=== PATIENT | male | born 1935 | race Caucasian/White ===

== ENCOUNTER 2016-03-01 12:05 | Inpatient (IN) | payer OTHER ==
[~2016-03-01] VITALS: Ht 172.7 cm; Wt 73.2 kg
[~2016-03-01 12:05] MED LIST: ATOR-22 PO; DEXT30TA7 PO; DONE10TA12 PO; ESCI10TA17 PO; GLUCPOW41 PO; MULT-506 PO; NMN5 PO
[2016-03-01 12:10] VITALS: BP 152/76; PULSE 81; TEMP 36.6; Ht 172.7 cm; Wt 73.2 kg
[2016-03-01] MEDS ORDERED: ACETAMINOPHEN 500 MG TAB PO PRN (12:15)
[2016-03-01] MEDS ORDERED: DO NOT ADMINISTER PNEUMOCOCCAL VACCINE PRN ×2 (12:30)
[2016-03-01 12:48] LABS: BASO % 0.2 %; BASO ABS # 0.02 K/uL (0-0.2); EOS % 0.1 %; HEMATOCRIT 38.9 % (42-52); IG% 0.2 %; LYMPH % 7.7 %; LYMPH ABS # 0.76 K/uL (1.2-3.4); MEAN CELL VOLUME 90.7 fL (80-100); MEAN CORPUSCULAR HEMOGLOBIN 30.3 pg (25-34); MEAN PLATELET VOLUME 11.8 fL (7.4-10.4); NEUT % 81.8 %; PLATELET COUNT 126 K/uL (130-400); RED BLOOD COUNT 4.29 M/uL (4.7-6.1); WHITE BLOOD COUNT 9.84 K/uL (4.8-10.8)
[2016-03-01 12:49] LABS: COMPLETE YES; MEAN CORPUSCULAR HGB CONC 33.4 g/dl (32-36)
[2016-03-01] MEDS: SODIUM CHLORIDE 0.9% 1000ML 1,000 ML IV SCH ×2 (13:15→20:43)
[2016-03-01 13:17] LABS: BUN/CREATININE RATIO 14.7 (10-20); CREATININE 0.98 mg/dl (0.60-1.40); POTASSIUM 4.2 mmol/L (3.5-5.1)
[2016-03-01] MEDS ORDERED: OSELTAMIVIR PHOSPHATE 75 MG CAP PO STA (14:41)
[2016-03-01] MEDS: ALBUT/IPRATROP 3MG/0.5MG NEB 3 ML VIAL INH SCH ×2 (15:00→19:25)
[2016-03-01 15:40] VITALS: BP 121/72; PULSE 82; TEMP 37.2; O2SAT 96
--- NOTE | 2016-03-01 16:00 | DIAGNOSTIC IMAGING REPORT ---
CHEST 2 VIEWS ROUTINE HISTORY: BRONCHITIS COMPARISON: Chest 02/28/2016. FINDINGS: No pneumothorax. Trace bilateral pleural effusions. Right greater than left interstitial and vascular thickening. This likely represents developing asymmetric pulmonary edema. The heart is top normal in size. Calcified granuloma within the left lower lobe. No new focal lung consolidations. IMPRESSION: Mild asymmetric pulmonary edema and trace bilateral pleural effusions. Electronically signed by: Renan Montes De Oca M.D. 03/01/2016 3:58 PM
--- NOTE | 2016-03-01 16:02 | DIAGNOSTIC IMAGING REPORT ---
CT HEAD WITHOUT CONTRAST (CT) CLINICAL HISTORY: CLOSED HEAD TRAUMA HEAD PAIN COMPARISON STUDY: No previous studies for comparison. TECHNIQUE: Axial CT of the brain is performed from the vertex to the skull base. IV contrast was not administered for this examination. CT DOSE: 823.94 mGycm FINDINGS: No intra or extra-axial mass lesions are visualized. There is no CT evidence of acute cortical infarction. There is no evidence of midline shift. There is no acute hemorrhage. No calvarial fractures are visualized. There are minor white matter hypodensities likely on a small vessel basis. There is no evidence of pathologic ventricular dilatation. There is a sphenoid sinus air-fluid level. There is mucosal thickening within the ethmoid sinuses. IMPRESSION: 1. Fluid/mucosal thickening within the ethmoid and sphenoid sinuses 2. No acute intracranial findings Electronically signed by: Jules Cisneros M.D. 03/01/2016 4:00 PM
[2016-03-01 19:25] VITALS: PULSE 84; O2SAT 96
[2016-03-01] MEDS: OSELTAMIVIR PHOSPHATE 75 MG CAP PO SCH (20:44)
[2016-03-01] MEDS: MEMANTINE 5 MG TAB PO SCH (20:45)
[2016-03-01] MEDS: ATORVASTATIN 20 MG TAB PO SCH (20:45)
[2016-03-01] MEDS: HEPARIN SOD 5000 UNIT/0.5 ML CARP SQ SCH (20:47)
[2016-03-01 23:32] VITALS: BP 131/75; PULSE 69; TEMP 37; O2SAT 95
[2016-03-02] VITALS (8 sets, daily range): BP systolic 139; BP diastolic 70–76; PULSE 72–80; TEMP 36.4–36.8; O2SAT 94–97
[2016-03-02 00:36] LABS: URINE APPEARANCE CLEAR (CLEAR); URINE BILIRUBIN NEG (NEG); URINE COLOR YELLOW; URINE NITRITE NEG (NEG); URINE PH 5.5 (4.5-7.5); URINE SPECIFIC GRAVITY 1.015 (1.000-1.030); UROBILINOGEN NEG (NEG)
[2016-03-02 00:40] LABS: MANUAL MICROSCOPIC REQUIRED? NO; REVIEW REQ? NO
[2016-03-02] MEDS: ALBUT/IPRATROP 3MG/0.5MG NEB 3 ML VIAL INH SCH ×4 (01:24→19:24)
--- NOTE | 2016-03-02 01:48 | HISTORY & PHYSICAL EXAMINATION ---
DATE OF ADMISSION: 03/01/2016 An 80-year-old male; admitted directly from the office with persistent symptomatology of fever, chills, severe cough, acute illness and dehydration. HISTORY OF PRESENT ILLNESS: The patient is treated for dementia and hypercholesterolemia. He also has osteoarthritis, history of duodenal ulcer, has hiatal hernia and reflux. He also has a history of nephrolithiasis. The patient was seen in the Emergency Room on 02/28/2016. He presented to the Emergency Room because of fever. His stated that he woke up the day before with a nonproductive cough. Then he developed fever, which has persisted. She has been checking it at home. He has been taking Mucinex for cough, but that did not improve his symptomatology. He woke up with severe fever and chills. He was coughing. He had no nausea, no vomiting. He was evaluated in the Emergency Room. His chest x-ray was unremarkable. Influenza screen was negative. He was discharged home on an inhaler. He was also taking Tylenol. He was brought to the office today because his symptoms have persisted. He has poor appetite, not getting enough to eat or drink. He has recurrent fever. His has been giving him Tylenol every 4 hours. He denied any headache. He was feeling lightheaded. He had no chest pain. He has severe cough. No significant sputum. No hemoptysis. No abdominal pain, no nausea, no vomiting. No diarrhea. His noted that he is very weak and off balance. During the night he fell down, he sustained a bruise to his left forehead area and nose. I saw the patient in the Emergency Room; he was feeling weak. He was having problem with his balance and equilibrium. He seemed dehydrated. Arrangements were made for admission. PAST MEDICAL HISTORY: 1. Dementia, has been progressive since 2011. He is currently on Aricept and Namenda. 2. Gastroesophageal reflux and hiatal hernia. 3. History of duodenal ulcer. 4. Status post repair of right inguinal hernia on 2 separate occasions; the last one was in 2007. 5. History of nephrolithiasis without any recent episode. 6. History of TUNA procedure on 08/28/2007. 7. He has had a history of prostate biopsy in 2007 which was benign. 8. His last colonoscopy was in 2009. He had an EGD done in 2011. 9. He has had Pneumovax in the past. He did receive his influenza vaccination this year. SOCIAL HISTORY: He is . He has 2 daughters. He has a very remote history of smoking; he stopped around 1964. No alcohol. No excessive coffee, tea or soft drinks. 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 FAMILY HISTORY: His mother in her late 80s, had coronary artery disease. His father in his early 90s, within a year after his , just from stress related to her . He had 2 brothers and 2 sisters. One sister has osteoarthritis. Children are alive and well. ALLERGIES: None. MEDICATIONS ON ADMISSION: All as noted on his home medication list. REVIEW OF SYSTEMS: The main issue, with his persistent cough. Severe weakness, problem with his balance and equilibrium, recurrent fevers. He has no nausea or vomiting. No diarrhea. PHYSICAL EXAMINATION: GENERAL: Well-developed. He is acutely ill. VITAL SIGNS: Blood pressure 152/76, pulse 81, respirations 18, temperature 36.6 and oxygen saturation 97% on room air. SKIN: Warm and dry. No rash. HEENT: He does have a bruise on his left frontal area and nose from his fall. Status post cataract surgery. He does wear glasses, trifocals. NECK: Supple without adenopathy or thyromegaly. No JVD. Normal carotid pulses. No bruits. HEART: Regular heart sounds. No murmur, rub or gallop. LUNGS: Bilateral rhonchi in both lung watkins. ABDOMEN: Soft, nontender. No organomegaly or masses. BACK: No spinal tenderness. He does have lichen planus rash on his lower back and buttocks area. EXTREMITIES: No edema, clubbing or cyanosis. Osteoarthritic changes. Absent left dorsalis pedis pulse. NEUROLOGIC: He is awake and alert. He is very forgetful. He does have a problem with his balance and equilibrium. LABORATORY TESTS: WBC count 9840, hemoglobin 13, hematocrit 38.9, platelet count 126,000. Sodium 137, potassium 4.2, chloride 103, CO2 26, BUN 14, creatinine 0.98, glucose 101, calcium 8.0, total bilirubin 0.4, AST 25, ALT 19, alkaline phosphatase 43, total protein 6.2, albumin 3.1. His urinalysis is showing 1+ ketones, 1+ blood , negative leukocyte esterase. His influenza A was positive. ASSESSMENT: 1. Influenza A. 2. Severe bronchitis. 3. Generalized weakness. 4. Dehydration. 5. Dementia. 6. Known hypercholesterolemia. 7. Gastroesophageal reflux. PLAN: The patient was admitted to medical bed. Resuscitation level 5. All his laboratory tests were ordered. He was started on IV fluids. Tylenol was ordered. He was started on Tamiflu. The plan is to hydrate him. Treat his influenza. Monitor his condition closely. Increase his activity. I anticipate that he will be able to return home after his acute illness. I spoke with his today and she was treated with Tamiflu at the same time. SUZI
[2016-03-02] MEDS: SODIUM CHLORIDE 0.9% 1000ML 1,000 ML IV SCH ×3 (04:00→19:58)
[2016-03-02] MEDS: ESCITALOPRAM OXALATE 10 MG TAB PO SCH (07:35)
[2016-03-02] MEDS: DONEPEZIL HCL 10 MG TAB PO SCH (07:35)
[2016-03-02] MEDS: MULTIVITAMIN TAB PO SCH (07:36)
[2016-03-02] MEDS: MEMANTINE 5 MG TAB PO SCH ×2 (07:37→19:58)
[2016-03-02] MEDS: OSELTAMIVIR PHOSPHATE 75 MG CAP PO SCH ×2 (07:37→19:58)
[2016-03-02] MEDS: HEPARIN SOD 5000 UNIT/0.5 ML CARP SQ SCH ×2 (09:41→20:28)
[2016-03-02] MEDS: HYDROCODONE/HOMATROPINE SYRUP 5MG/1.5MG 5ML UDP PO PRN (12:02)
[2016-03-02] MEDS: ATORVASTATIN 20 MG TAB PO SCH (19:58)
[2016-03-03] VITALS (9 sets, daily range): BP systolic 128–149; BP diastolic 70–74; PULSE 70–90; TEMP 36.6–37.1; O2SAT 94–96
[2016-03-03] MEDS: ALBUT/IPRATROP 3MG/0.5MG NEB 3 ML VIAL INH SCH ×4 (01:22→19:26)
[2016-03-03] MEDS: HYDROCODONE/HOMATROPINE SYRUP 5MG/1.5MG 5ML UDP PO PRN ×4 (02:16→18:50)
[2016-03-03] MEDS: SODIUM CHLORIDE 0.9% 1000ML 1,000 ML IV SCH ×3 (03:58→21:40)
--- NOTE | 2016-03-03 05:43 | PROGRESS NOTE ---
DATE: 03/02/2016 SUBJECTIVE: An 80-year-old male admitted with severe bronchitis and viral illness. He was seen in the Emergency Room just 2 days prior to his admission and his influenza screen was negative. I repeated this on admission and he tested positive for influenza A. He was started on Tamiflu. He remains afebrile. He is still having severe cough. He is feeling weak. Denied any headache. No dizziness. Denied any chest pain, no shortness of breath. He is still having cough. No sputum. No nausea, no vomiting. No problem with any diarrhea. No urinary problem. No pain in his back or extremities. PHYSICAL EXAMINATION: GENERAL: Well developed, in no distress. VITAL SIGNS: Blood pressure 139/72, pulse 80, respiration 18, temperature 36.8, oxygen saturation 94% on room air. SKIN: Warm and dry. No rash. HEENT: No mucosal abnormality. NECK: No JVD, no adenopathy. HEART: Regular heart sounds. LUNGS: Bilateral rhonchi. ABDOMEN: Soft, nontender. BACK: No spinal tenderness. EXTREMITIES: No edema, clubbing, or cyanosis. ASSESSMENT: 1. Influenza A. 2. Dehydration. 3. Dementia. 4. Hypercholesterolemia. PLAN: 1. Continue IV fluids. 2. I did explain to him that he does have Hycodan ordered and he can ask for it every 4 hours. 3. Physical therapy was ordered. 4. I spoke with his family this morning. 5. Anticipate continuation with his treatment. I anticipate that he will go home after his acute illness.
[2016-03-03] MEDS: DONEPEZIL HCL 10 MG TAB PO SCH (07:59)
[2016-03-03] MEDS: MULTIVITAMIN TAB PO SCH (08:00)
[2016-03-03] MEDS: MEMANTINE 5 MG TAB PO SCH ×2 (08:00→21:40)
[2016-03-03] MEDS: ESCITALOPRAM OXALATE 10 MG TAB PO SCH (08:00)
[2016-03-03] MEDS: OSELTAMIVIR PHOSPHATE 75 MG CAP PO SCH ×2 (08:01→21:40)
[2016-03-03] MEDS: HEPARIN SOD 5000 UNIT/0.5 ML CARP SQ SCH ×2 (08:09→21:00)
[2016-03-03 09:05] LABS: BASO % 0.3 %; BASO ABS # 0.02 K/uL (0-0.2); COMPLETE YES; EOS % 0.2 %; HEMATOCRIT 38.4 % (42-52); IG% 0.2 %; LYMPH % 14.7 %; LYMPH ABS # 0.94 K/uL (1.2-3.4); MEAN CELL VOLUME 87.3 fL (80-100); MEAN CORPUSCULAR HEMOGLOBIN 28.9 pg (25-34); MEAN CORPUSCULAR HGB CONC 33.1 g/dl (32-36); MEAN PLATELET VOLUME 11.7 fL (7.4-10.4); MONO % 13.7 %; NEUT % 70.9 %; PLATELET COUNT 144 K/uL (130-400); WHITE BLOOD COUNT 6.41 K/uL (4.8-10.8)
[2016-03-03 09:26] LABS: BUN/CREATININE RATIO 11.4 (10-20); CALCIUM 7.9 mg/dl (8.5-10.1); CREATININE 0.71 mg/dl (0.60-1.40); POTASSIUM 3.4 mmol/L (3.5-5.1)
[2016-03-03] MEDS ORDERED: POTASSIUM CHLORIDE 20 MEQ TABCR PO ONE ×2 (09:45→16:00)
--- NOTE | 2016-03-03 20:02 | PROGRESS NOTE ---
DATE: 03/03/2016 An 80-year-old male admitted with severe viral illness, severe bronchitis, general debilitation and weakness. His initial evaluation showed a positive influenza A. Since admission, the patient remains completely afebrile. His cough is subsiding with taking the Hycodan. He was already started on Tamiflu. The patient was sitting in his chair at bedside. He seemed comfortable. He denied any headache or dizziness. No chest pain, no shortness of breath. No abdominal pain, no nausea, no vomiting. He is tolerating his diet. No problem urinating. He has had bowel movements. PHYSICAL EXAMINATION: GENERAL: Well-developed, in no distress. VITAL SIGNS: Blood pressure 149/74, pulse 75, respirations 18, temperature 36.6 and oxygen saturation 95% on room air. SKIN: Warm and dry. No rash. HEENT: No mucosal abnormalities. NECK: No JVD. No adenopathy. HEART: Regular heart sounds. LUNGS: Clear. No wheezing, no rhonchi. ABDOMEN: Soft, nontender. BACK: No spinal tenderness. EXTREMITIES: No edema, clubbing or cyanosis. TODAY'S LABORATORY TESTS: WBC count 6410, hemoglobin 12.7, hematocrit 38.4 and platelet count 144,000. Sodium 142, potassium 3.4, chloride 108, CO2 23, BUN 8, creatinine 0.71, glucose 115 and calcium 7.9. ASSESSMENT: 1. Influenza A. 2. General debilitation. 3. Dementia. PLAN: 1. Continue the same medications. 2. Proceeding with his therapies. 3. His condition remained quite weakened. We will continue IV fluids for now. Continue all his other medications. 4. I anticipate that he will go home after his acute hospitalization, but it all depends on his condition and whether his will be able to care for him at home or he will need any rehab stay prior to him going home.
[2016-03-03] MEDS: ATORVASTATIN 20 MG TAB PO SCH (21:39)
[2016-03-04 01:50] VITALS: PULSE 76; O2SAT 96
[2016-03-04] MEDS: ALBUT/IPRATROP 3MG/0.5MG NEB 3 ML VIAL INH SCH ×4 (01:50→19:25)
[2016-03-04] MEDS: HYDROCODONE/HOMATROPINE SYRUP 5MG/1.5MG 5ML UDP PO PRN ×2 (02:36→18:08)
[2016-03-04] MEDS: SODIUM CHLORIDE 0.9% 1000ML 1,000 ML IV SCH (03:42)
[2016-03-04 07:03] VITALS: BP 115/61; PULSE 77; TEMP 36.7; O2SAT 93
[2016-03-04 07:22] LABS: HEMATOCRIT 33.4 % (42-52); MEAN CELL VOLUME 89.3 fL (80-100); MEAN CORPUSCULAR HEMOGLOBIN 29.4 pg (25-34); MEAN CORPUSCULAR HGB CONC 32.9 g/dl (32-36); MEAN PLATELET VOLUME 11.5 fL (7.4-10.4); PLATELET COUNT 143 K/uL (130-400); RED BLOOD COUNT 3.74 M/uL (4.7-6.1)
[2016-03-04 07:42] VITALS: PULSE 72; O2SAT 94
[2016-03-04 07:47] LABS: BUN/CREATININE RATIO 11.6 (10-20); CALCIUM 7.7 mg/dl (8.5-10.1); CREATININE 0.76 mg/dl (0.60-1.40); POTASSIUM 3.8 mmol/L (3.5-5.1)
[2016-03-04] MEDS: MEMANTINE 5 MG TAB PO SCH ×2 (08:08→20:25)
[2016-03-04] MEDS: ESCITALOPRAM OXALATE 10 MG TAB PO SCH (08:08)
[2016-03-04] MEDS: OSELTAMIVIR PHOSPHATE 75 MG CAP PO SCH ×2 (08:08→20:24)
[2016-03-04] MEDS: DONEPEZIL HCL 10 MG TAB PO SCH (08:08)
[2016-03-04] MEDS: MULTIVITAMIN TAB PO SCH (08:08)
[2016-03-04] MEDS: HEPARIN SOD 5000 UNIT/0.5 ML CARP SQ SCH ×2 (08:10→20:30)
[2016-03-04 14:10] VITALS: PULSE 83; O2SAT 93
[2016-03-04 15:40] VITALS: BP 147/71; PULSE 79; TEMP 36.9; O2SAT 95
--- NOTE | 2016-03-04 19:02 | PROGRESS NOTE ---
DATE: 03/04/2016 SUBJECTIVE: An 80-year-old male admitted with influenza A. He presented with severe viral illness with severe bronchitis. He was dehydrated. He was generally weak. He had problem with his balance and equilibrium. The patient was admitted. His influenza A tested positive. He was started on Tamiflu. He was started on IV fluid. Overall, his condition is improved, but he remains weak and tired. His appetite is improving. He has not had any fever, no chills. No earache, sore throat or neck pain. No chest pain. No shortness of breath at rest. No nausea, no vomiting. Tolerating his diet. No problem with his bowel movements. No problem urinating. No ankle edema. PHYSICAL EXAMINATION: GENERAL: Well developed, in no distress. VITAL SIGNS: Blood pressure 115/61, pulse 77, respiration 18, temperature 36.7, oxygen saturation 93% on room air. SKIN: Warm and dry. No rash. HEENT: No mucosal abnormality. NECK: No JVD, no adenopathy. HEART: Regular heart sounds. LUNGS: Clear. ABDOMEN: Soft, nontender. BACK: No spinal tenderness. EXTREMITIES: No edema, clubbing, or cyanosis. TODAY'S LABORATORY TESTS: WBC count 6800, hemoglobin 11, hematocrit 33.4, platelet count 143,000. Sodium 143, potassium 3.8, chloride 108, CO2 25, BUN 9, creatinine 0.76, glucose 99, calcium 7.7. ASSESSMENT: 1. Influenza A. 2. Dehydration. 3. Generalized weakness. 4. Dysequilibrium. 5. Dementia. PLAN: 1. Continue the same medication. 2. I did discontinue his IV fluid. 3. Physical therapy has been ordered. 4. Discharge planning in progress. His does not really feel that he needs any services at this point. Will continue following up on that.
[2016-03-04 19:25] VITALS: PULSE 71; O2SAT 93
[2016-03-04] MEDS: ATORVASTATIN 20 MG TAB PO SCH (20:25)
[2016-03-05] VITALS: BP 144/67; PULSE 84; TEMP 36.7; O2SAT 94
[2016-03-05] MEDS: HYDROCODONE/HOMATROPINE SYRUP 5MG/1.5MG 5ML UDP PO PRN ×2 (00:33→09:11)
[2016-03-05 01:38] VITALS: PULSE 78; O2SAT 91
[2016-03-05] MEDS: ALBUT/IPRATROP 3MG/0.5MG NEB 3 ML VIAL INH SCH ×2 (01:38→07:09)
[2016-03-05 07:09] VITALS: PULSE 67; O2SAT 93
[2016-03-05] MEDS ORDERED: TMF75 PO (08:19)
[2016-03-05] MEDS ORDERED: HYCUDL5 PO (08:19)
--- NOTE | 2016-03-05 08:21 | Discharge Instructions ---
Discharge Instructions Admission Reason for Admission: Dehydration,Bronchitis,Recent Fall W/Head Trauma Discharge Discharge Diagnosis / Problem: Influenza A, Severe dronchitis, Generalized weakness, Dehydration Discharge Goals Goal(s): Decrease discomfort, Improve function, Increase independence, Improve disease control Activity Recommendations Activity Limitations: resume your previous activity . Current Hospital Diet Patient's current hospital diet: Regular Diet Discharge Diet Recommended Diet: Regular Diet Pending Studies Studies pending at discharge: no Medical Emergencies . Who to Call and When: Medical Emergencies: If at any time you feel your situation is an emergency, please call 911 immediately. . Non-Emergent Contact Non-Emergency issues call your: Primary Care Provider . . "Provider Documentation" section prepared by Gerber Greer. VTE Core Measure Inpt VTE Proph given/why not?: Treatment not indicated
[2016-03-05] MEDS: MULTIVITAMIN TAB PO SCH (08:48)
[2016-03-05] MEDS: ESCITALOPRAM OXALATE 10 MG TAB PO SCH (08:49)
[2016-03-05] MEDS: MEMANTINE 5 MG TAB PO SCH (08:49)
[2016-03-05] MEDS: OSELTAMIVIR PHOSPHATE 75 MG CAP PO SCH (08:49)
[2016-03-05] MEDS: DONEPEZIL HCL 10 MG TAB PO SCH (08:49)
[2016-03-05 08:56] VITALS: BP 151/76; PULSE 94; TEMP 36.5; O2SAT 95
[2016-03-05 09:15] VITALS: BP 151/76; PULSE 94; TEMP 36.5; O2SAT 95
--- NOTE | 2016-03-05 21:33 | PROGRESS NOTE ---
DATE: 03/05/2016 SUBJECTIVE: An 80-year-old male admitted with influenza A. He has severe bronchitis and severe cough. Dehydration. Difficulty with his balance and equilibrium. The patient was started on IV fluid, also started on Tamiflu. Physical therapy was ordered. He remained afebrile throughout his hospitalization. He denied any headache. No dizziness, no lightheadedness. Prior to his admission, he was having a throbbing headache. Denied any chest pain, no shortness of breath. His cough persisted, but he was receiving Hycodan and that was giving him some relief. No abdominal pain, no nausea, no vomiting. No problem with his bowel movements. No problem urinating. His aches and pains were resolving. PHYSICAL EXAMINATION: GENERAL: Well-developed in no distress. VITAL SIGNS: Blood pressure 151/76, pulse 94, respirations 20, temperature 36.5, oxygen saturation 95% on room air. SKIN: Warm and dry. No rash. HEENT: Decreased hearing. He wears glasses. No mucosal abnormality. NECK: No JVD, no adenopathy. HEART: Regular heart sounds. LUNGS: Clear. No wheezing, no rhonchi. ABDOMEN: Soft, nontender. BACK: No spinal tenderness. EXTREMITIES: No edema, clubbing, or cyanosis. ASSESSMENT: 1. Influenza A. 2. Dementia. 3. Dehydration. 4. Generalized weakness. 5. Hyperlipidemia. 6. Dyspepsia. PLAN: 1. His condition has stabilized. He is doing well, not having any problem at this point. He is improving gradually. 2. I spoke with his this morning. 3. He was discharged home. His did not really feel that he needs any services at home. 4. I will see him in the office in 1 week.
--- NOTE | 2016-03-18 15:31 | DISCHARGE SUMMARY ---
DISCHARGE DIAGNOSES: 1. Influenza A. 2. Severe bronchitis. 3. Dehydration. 4. Dementia. 5. Hyperlipidemia. DISCHARGE MEDICATIONS: Included: 1. Hycodan one teaspoon every 4 hours as needed for cough. 2. Tamiflu 75 mg twice a day, to continue for 5 days. 3. Atorvastatin 20 mg daily. 4. Mucinex DM one tablet every 12 hours. 5. Aricept 10 mg daily. 6. Lexapro 10 mg daily. 7. Glucosamine chondroitin one tablet in the morning. 8. Namenda 5 mg daily. 9. Multivitamin one daily. An 80-year-old male admitted directly from the office with persistent symptomatology of fever, chills, severe cough, acute illness and dehydration. The patient is treated for dementia and hypercholesterolemia. He also has osteoarthritis, history of duodenal ulcer and gastroesophageal reflux. He also has a history of nephrolithiasis. The patient was seen in the Emergency Room on 02/28/2016 when he presented with fever. He stated that he woke up the day before with nonproductive cough. He developed fever. Persisted. He has been taking Mucinex for cough. His symptoms did not improve. He woke up with severe fever and chills and was coughing. He had no nausea, no vomiting. He was evaluated in the Emergency Room. Chest x-ray was unremarkable. Influenza screen was negative. He was discharged on inhaler. The patient was brought to the office because of persistent symptoms. He had poor appetite. He was not getting enough to eat or drink. He was having recurrent fever. He has been receiving Tylenol two tablets every 4 hours. He denied any headache, but felt lightheaded. He has no chest pain. He has severe cough. No sputum, no hemoptysis. He was having problem with his balance and equilibrium. After evaluation in the office, he was admitted for further treatment. PAST MEDICAL HISTORY, SOCIAL HISTORY AND FAMILY HISTORY: All as noted. ALLERGIES: None. MEDICATIONS ON ADMISSION: All as noted on his home medication list. PHYSICAL EXAMINATION AND ADMISSION LABORATORY TESTS: All as noted. HOSPITAL COURSE: After admission, his influenza A was positive. He was started on IV fluids. He was also started on Tamiflu. Given Hycodan for cough. I also contacted his and gave her a course of Tamiflu. His condition remained weakened, but started to improve with hydration. His fever has resolved. He was not having any headache. No dizziness. Had to be careful as far as getting him out of bed and walking because of his balance initially. He had no nausea or vomiting. He started to tolerate his diet. His activity was gradually increased. His laboratory tests were monitored. The patient was tolerating his medications. His diet improved. His hydration status also was corrected. His cough was controlled with Hycodan. The patient was discharged home. Medications as noted above. Follow up in the office in one week. His did not think that he needed any services at home. She has been involved in his care. SUZI
[2016-06-22] MEDS ORDERED: ATOR10TA88 PO (08:06)
== END 2016-03-05 09:40 | disposition home or self-care (01) | DRG 195 ==
LOC: C.MS4W 12:05 → UNDOADMIN 12:05
PROVIDERS: ADMIT Internal Medicine; ATTEND Internal Medicine
DX: J09.X2 Influenza due to identified novel influenza A virus with other respiratory manifestations (principal); J40 Bronchitis, not specified as acute or chronic; E86.0 Dehydration; F03.90 Unspecified dementia, unspecified severity, without behavioral disturbance, psychotic disturbance, mood disturbance, and anxiety; K21.9 Gastro-esophageal reflux disease without esophagitis; E78.00 Pure hypercholesterolemia, unspecified; E78.5 Hyperlipidemia, unspecified; R10.13 Epigastric pain; K44.9 Diaphragmatic hernia without obstruction or gangrene; K26.9 Duodenal ulcer, unspecified as acute or chronic, without hemorrhage or perforation; R53.1 Weakness; R53.81 Other malaise; Z87.891 Personal history of nicotine dependence; Z79.899 Other long term (current) drug therapy; Z98.890 Other specified postprocedural states

== ENCOUNTER → 2016-03-29 | Outpatient (CLI) | payer OTHER ==
[~2016-03-29] MED LIST changes: +ASPEC81 PO; +ATOR10TA88 PO; +CHOL20009 PO; +FINA5TAB PO; +HYCUDL5 PO; +LPT40 PO; +LSN5 PO; +NTRSLP4 SL; +PLV75 PO; +TMF75 PO; +XRL15 PO
--- NOTE | 2016-03-29 14:10 | DIAGNOSTIC IMAGING REPORT ---
LEFT LOWER EXTREMITY VENOUS DOPPLER CLINICAL HISTORY: Left leg pain and swelling. COMPARISON STUDY: No previous studies for comparison. TECHNIQUE: Sonography of the deep venous system of the left lower extremity was performed. Compression and augmentation were evaluated. FINDINGS: The left common femoral and superficial femoral veins are compressible and have flow within them. There is occlusive thrombus within the distal left popliteal vein. There is also thrombus within the left peroneal and posterior tibial veins. The thrombus burden is moderate. IMPRESSION: Deep venous thrombus within the left popliteal, posterior tibial and peroneal veins. Electronically signed by: Moses Mcelroy M.D. 03/29/2016 2:08 PM Dictated Date/Time: 03/29/2016 2:07 PM
== END | disposition home or self-care (01) ==
LOC: C.ULTR 13:23
PROVIDERS: ATTEND Internal Medicine
DX: I82.432 Acute embolism and thrombosis of left popliteal vein (principal); I82.442 Acute embolism and thrombosis of left tibial vein; I82.492 Acute embolism and thrombosis of other specified deep vein of left lower extremity

== ENCOUNTER → 2016-04-30 | Outpatient (CLI) | payer OTHER ==
[~2016-04-30] MED LIST changes: +GADAVIST IV PRN
--- NOTE | 2016-04-30 09:19 | DIAGNOSTIC IMAGING REPORT ---
ORBIT RADIOGRAPHS 3 VIEWS HISTORY: Pre-MRI screening. COMPARISON: CT March 01, 2016. FINDINGS: No orbital metallic foreign bodies are identified. There are multiple dental amalgams. IMPRESSION: No radiopaque foreign bodies identified within the orbits. Electronically signed by: Moses Mcelroy M.D. 04/30/2016 9:18 AM Dictated Date/Time: 04/30/2016 9:16 AM
--- NOTE | 2016-04-30 10:13 | DIAGNOSTIC IMAGING REPORT ---
MRI OF THE BRAIN WITHOUT AND WITH IV CONTRAST CLINICAL HISTORY: MEMORY LOSS mental status change COMPARISON STUDY: No previous studies for comparison. TECHNIQUE: Utilizing a 1.5 Pauly magnet and dedicated coil, multiplanar, multiecho imaging of the brain was performed pre and postcontrast administration. IV administration of 10 mL of Gadavist contrast was uneventful. FINDINGS: Diffusion-weighted images are negative for an acute ischemic event. Findings of age-related atrophy. Mild compensatory prominence of the ventricular system. Mild chronic small vessel change. No evidence for abnormal postcontrast enhancement. IMPRESSION: 1. Atrophy. 2. Mild chronic small vessel change. 3. Otherwise negative study. 4. No evidence for abnormal postcontrast enhancement. Electronically signed by: Edson Guajardo M.D. 04/30/2016 10:12 AM Dictated Date/Time: 04/30/2016 10:06 AM
== END | disposition home or self-care (01) ==
LOC: C.RAD 08:28
PROVIDERS: ATTEND Psychiatry & Neurology Neurology
DX: R41.3 Other amnesia (principal); G31.9 Degenerative disease of nervous system, unspecified; Z13.89 Encounter for screening for other disorder

== ENCOUNTER 2016-06-22 07:17 | Inpatient (IN) | payer OTHER ==
[2016-06-22] VITALS (20 sets, daily range): BP systolic 88–130; BP diastolic 49–81; PULSE 45–74; TEMP 36.4–36.9; O2SAT 95–100; Ht 172.7 cm; Wt 70.6 kg
[~2016-06-22] VITALS: Ht 172.7 cm; Wt 70.6 kg
[~2016-06-22 07:17] MED LIST changes: -ASPEC81 PO; -ATOR10TA88 PO; -CHOL20009 PO; -FINA5TAB PO; -GADAVIST IV PRN; -LPT40 PO; -LSN5 PO; -NTRSLP4 SL; -PLV75 PO; -XRL15 PO
[2016-06-22] MEDS ORDERED: NURSING VERBAL MED ORDER ONE ×3 (07:35→07:45)
[2016-06-22] MEDS ORDERED: TICAGRELOR 90 MG TAB PO ONE (07:38)
[2016-06-22] MEDS ORDERED: ASPIRIN 324 MG CHEW ONE (07:38)
[2016-06-22] MEDS ORDERED: HEPARIN SQ 5000 UNIT HEART ALERT CARP ONE (07:38)
[2016-06-22] MEDS ORDERED: CLOPIDOGREL BISULFATE 300 MG TAB PO ONE ×2 (07:38→09:03)
[2016-06-22] MEDS ORDERED: ASPIRIN 81 MG CHEW PO STA (07:43)
--- NOTE | 2016-06-22 07:43 | EMERGENCY ROOM VISIT NOTE ---
History Report prepared by Main: Tremayne Warner Under the Supervision of: Dr. Declan Duvall D.O. First contact with patient: 07:23 Chief Complaint: CHEST PAIN Stated Complaint: CHEST TIGHTNESS Nursing Triage Summary: pt c/o chest tightness started at 0600 this am awoke him from sleep. pain radiates down both arms. denies any n/v/sob History of Present Illness The patient is an 80 year old male who presents to the Emergency Room with complaints of constant chest pain beginning an hour and a half prior to arrival. He describes his pain as pressure and currently rates his discomfort as an 8/10 in severity. The patient notes the chest discomfort woke him up from his sleep. He denies experiencing this type of discomfort in the past. The patient associates chest pain radiating down both of his arms with today's symptoms. As per , the patient was recently diagnosed with an unprovoked blood clot in the left leg two months ago, in which, the patient was placed on Xarelto. She denies the patient being on a long car ride, recent trauma, or recent surgeries. The patient denies missing any of his medications. He denies being a current or previous smoker. The notes the patient having a history of a hernia surgery. 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 Review of Systems See above for pertinent positives & negatives. A total of 10 systems reviewed and were otherwise negative. Past Medical & Surgical Medical Problems: (1) DEHYDRATION,BRONCHITIS,DEMENTIA (2) DVT (deep venous thrombosis) Surgical Problems: (1) S/P hernia repair Family History Noncontributory secondary to age Social History Smoking Status: Never Smoker Alcohol Use: none Drug Use: none Marital Status: Housing Status: lives with significant other Occupation Status: retired Current/Historical Medications Scheduled Atorvastatin (Lipitor), 10 MG PO QPM Cholecalciferol (Vitamin D), 2,000 UNIT PO DAILY Donepezil Hydrochloride (Aricept), 10 MG PO QAM Escitalopram (Lexapro), 5 MG PO QAM Finasteride (Proscar), 5 MG PO DAILY Memantine (Namenda), 5 MG PO BID Multivitamin (Multivitamin), 1 TAB PO QAM Rivaroxaban (Xarelto), 15 MG PO BID Allergies Coded Allergies: No Known Allergies (Verified , 02/28/16) Physical Exam Vital Signs Date Time Temp Pulse Resp B/P Pulse Ox O2 Delivery O2 Flow Rate FiO2 06/22/16 07:36 61 06/22/16 07:30 100 Nasal Cannula 2.0 06/22/16 07:21 36.4 73 18 108/56 99 Room Air Physical Exam GENERAL: Patient is well appearing and in mild discomfort. HEENT: No acute trauma, normocephalic atraumatic, mucous membranes moist, no nasal congestion, no scleral icterus. NECK: No stridor, no adenopathy, no meningismus, trachea is midline. LUNGS: No dyspnea. Clear to auscultation and equal bilaterally. No wheeze, no rhonchi. HEART: Bradycardic rate and regular rhythm. No murmurs, rubs, gallops appreciated. ABDOMEN: Soft, nontender, bowel sounds positive, no masses appreciated, no peritonitis. BACK: No midline tenderness, no CVA tenderness EXTREMITIES: Normal motion all extremities, no cyanosis, no edema. NEUROLOGIC: Alert and oriented, no acute motor or sensory deficits, no focal weakness, cranial nerves grossly intact. SKIN: No rash, no jaundice, no diaphoresis. Medical Decision & Procedures ER Provider Diagnostic Interpretation: Radiology results as stated below per my review and radiologist interpretation: CHEST ONE VIEW PORTABLE CLINICAL HISTORY: Atypical chest pain COMPARISON STUDY: 03/01/2016 FINDINGS: The heart is at the upper limits of normal in size. There is no overt failure. There is no focal pulmonary consolidation. There are no pleural effusions. A density at the level the left cardiophrenic angle, likely represents a summation or atelectatic change.[ IMPRESSION: AP portable study. No acute findings. Electronically signed by: Jules Cisneros M.D. 06/22/2016 7:49 AM Laboratory Results 06/22/16 07:30 Red Blood Count 4.58, Mean Corpuscular Volume 93.4, Mean Corpuscular Hemoglobin 30.8, Mean Corpuscular Hemoglobin Concent 32.9, Mean Platelet Volume 11.4, Neutrophils (%) (Auto) 72.2, Lymphocytes (%) (Auto) 18.6, Monocytes (%) (Auto) 7.6, Eosinophils (%) (Auto) 0.9, Basophils (%) (Auto) 0.4, Neutrophils # (Auto) 7.65, Lymphocytes # (Auto) 1.97, Monocytes # (Auto) 0.80, Eosinophils # (Auto) 0.09, Basophils # (Auto) 0.04 06/22/16 07:30 Test 06/22/16 07:30 06/22/16 07:38 06/22/16 07:51 White Blood Count 10.58 K/uL (4.8-10.8) Red Blood Count 4.58 M/uL (4.7-6.1) Hemoglobin 14.1 g/dL (14.0-18.0) Hematocrit 42.8 % (42-52) Mean Corpuscular Volume 93.4 fL (80-100) Mean Corpuscular Hemoglobin 30.8 pg (25-34) Mean Corpuscular Hemoglobin Concent 32.9 g/dl (32-36) Platelet Count 184 K/uL (130-400) Mean Platelet Volume 11.4 fL (7.4-10.4) Neutrophils (%) (Auto) 72.2 % Lymphocytes (%) (Auto) 18.6 % Monocytes (%) (Auto) 7.6 % Eosinophils (%) (Auto) 0.9 % Basophils (%) (Auto) 0.4 % Neutrophils # (Auto) 7.65 K/uL (1.4-6.5) Lymphocytes # (Auto) 1.97 K/uL (1.2-3.4) Monocytes # (Auto) 0.80 K/uL (0.11-0.59) Eosinophils # (Auto) 0.09 K/uL (0-0.5) Basophils # (Auto) 0.04 K/uL (0-0.2) RDW Standard Deviation 47.1 fL (36.4-46.3) RDW Coefficient of Variation 13.8 % (11.5-14.5) Immature Granulocyte % (Auto) 0.3 % Immature Granulocyte # (Auto) 0.03 K/uL (0.00-0.02) Est Creatinine Clear Calc Drug Dose 48.4 ml/min Estimated GFR () 72.1 Estimated GFR (Non- 62.2 BUN/Creatinine Ratio 13.4 (10-20) Calcium Level 8.8 mg/dl (8.5-10.1) Direct Bilirubin 0.1 mg/dl (0-0.2) Aspartate Amino Transf (AST/SGOT) 21 U/L (15-37) Alanine Aminotransferase (ALT/SGPT) 25 U/L (12-78) Albumin 3.5 gm/dl (3.4-5.0) Lipase 675 U/L (73-393) Bedside Hemoglobin 15.3 g/dl (14.0-18.0) Bedside Hematocrit 45 % (42-52) Bedside Sodium 146 mEq/L (135-144) Bedside Potassium 4.0 mEq/L (3.3-5.0) Bedside Chloride 103 mEq/L (101-112) Bedside Total CO2 27 mEq/l (24-31) Anion Gap 21.0 mmol/L (16-25) Bedside Blood Urea Nitrogen 17 mg/dl (7-18) Bedside Creatinine 1.0 mg/dl (0.6-1.3) Bedside Glucose (other) 146 mg/dl (70-99) Bedside Ionized Calcium (Kathia) 1.19 mmol/l (1.12-1.32) Bedside Prothrombin Time INR 1.2 (0.9-1.1) Laboratory results as reviewed by me. Medications Administered Medications (Trade) Dose Ordered Sig/[facility] Route Start Time Stop Time Status Last Admin Dose Admin Aspirin (Aspirin Chew) 324 mg STK-MED ONCE .ROUTE 06/22/16 07:38 06/22/16 07:39 DC 06/22/16 07:41 324 MG Heparin Sodium (Porcine) (Heparin 5000 Unit Heart Alert Carp) 10,000 unit STK-MED ONCE .ROUTE 06/22/16 07:38 06/22/16 07:39 DC 06/22/16 07:49 5,000 UNIT Morphine Sulfate (MoRPHine SULFATE INJ) 4 mg STK-MED ONCE .ROUTE 06/22/16 07:57 06/22/16 07:58 DC 06/22/16 07:54 4 MG ECG Indication: chest pain Rate (beats per minute): 51 Rhythm: sinus bradycardia Findings: ST depression (Mild in V3-V6), ST elevation (in II, III, and aVF) Comparison ECG Date: 03/01/2016 Change: ST elevations and ST depressions are new. Repeat EKG: Sinus bradycardia. Rate 43. Further increase in ST elevation in II, III, and aVF. Worsening ST depression. ED Course 0728: The patient was evaluated in room B9. A complete history and physical exam was performed. 0735: LOUISE Luna (Cardiology) was paged. 0736: Melany Cuadra (Internal Medicine) was paged. 0743: Ordered Aspirin 324 mg PO. 0745: Ordered Nursing Verbal Med Order 1 ea N/A, Heparin Sodium (Porcine) 5,000 unit IV. 0746: LOUISE Luna (Cardiology) was paged a second time. 0748: I discussed the case with Melany Cuadra (Internal Medicine) at this time. 0750: I discussed the case with LOUISE Luna (Cardiology) at the patient's bedside. He will follow the patient for further evaluation. It is noted I reviewed the chest x-ray, and it was normal. Point of care labs were normal, as well. 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 Medical Decision Differential diagnosis: Etiologies such as cardiac ischemia, aortic dissection, pulmonary embolism, pneumonia, pneumothorax, musculoskeletal, infections, pericarditis, myocarditis , esophageal rupture, gastrointestinal, as well as others were entertained. Patient is an 80-year-old male with sudden onset chest pressure which woke him out of sleep at 6 AM. Pain radiates down his left arm. Patient is a poor historian he has a history of dementia. EKG was obtained and it was immediately recognized the patient was having a ST elevation myocardial infarction. A heart alert was initiated, the patient was given 324 aspirin, and a bolus of 5000 units of heparin. Repeat EKG revealed further evolution of the STEMI. Patient was given 2 L of normal saline as bolus. Nitrates were not administered as the patient had significant bradycardia and was at risk for cardiovascular collapse. I have personally spent 35 minutes of critical care time in the direct management of this patient. This is a life/limb threatening event. This includes time spent evaluating patient, direct bedside care, chart review, placing orders, interpretation of diagnostic studies, discussion with consultants, patient, and family members, as well as other required patient management activities. This time is exclusive of all separately billable procedures, and teaching time and separate from and in addition to any other critical care service time. Consults Time Called: 0736 Consulting Physician: Melany Cuadra (Internal Medicine) Returned Call: 0748 I discussed the case with Melany Cuadra (Internal Medicine) at this time. Additional Consults: Time Called: 0735 Consulted Physician: LOUISE Luna (Cardiology) Returned Call: 0750 Additional Comments: I discussed the case with LOUISE Luna (Cardiology) at the patient's bedside. He will follow the patient for further evaluation. Impression Primary Impression: STEMI (ST elevation myocardial infarction) Additional Impressions: Dementia Hyperglycemia Critical Care I have personally spent 35 minutes of critical care time in the direct management of this patient. This is a life/limb threatening event. This includes time spent evaluating patient, direct bedside care, chart review, placing orders, interpretation of diagnostic studies, discussion with consultants, patient, and family members, as well as other required patient management activities. This time is exclusive of all separately billable procedures, and teaching time and separate from and in addition to any other critical care service time. Scribe Attestation The scribe's documentation has been prepared under my direction and personally reviewed by me in its entirety. I confirm that the note above accurately reflects all work, treatment, procedures, and medical decision making performed by me. Departure Information Dispostion Being Evaluated By Hospitalist (LOUISE Luna (Cardiology)) Referrals Gerber Villavicencio M.D. (PCP) Problem Qualifiers Primary Impression: STEMI (ST elevation myocardial infarction) Involved coronary artery: unspecified coronary artery Qualified Codes: I21.3 - ST elevation (STEMI) myocardial infarction of unspecified site Additional Impressions: Dementia Dementia type: Alzheimer's disease Alzheimer's disease onset: unspecified onset Dementia behavioral disturbance: without behavioral disturbance Qualified Codes: G30.9 - Alzheimer's disease, unspecified; F02.80 - Dementia in other diseases classified elsewhere without behavioral disturbance
[2016-06-22 07:45] LABS: BASO % 0.4 %; BASO ABS # 0.04 K/uL (0-0.2); COMPLETE YES; EOS % 0.9 %; HEMATOCRIT 42.8 % (42-52); IG% 0.3 %; LYMPH % 18.6 %; LYMPH ABS # 1.97 K/uL (1.2-3.4); MEAN CELL VOLUME 93.4 fL (80-100); MEAN CORPUSCULAR HEMOGLOBIN 30.8 pg (25-34); MEAN CORPUSCULAR HGB CONC 32.9 g/dl (32-36); MEAN PLATELET VOLUME 11.4 fL (7.4-10.4); MONO % 7.6 %; NEUT % 72.2 %; PLATELET COUNT 184 K/uL (130-400); RED BLOOD COUNT 4.58 M/uL (4.7-6.1); WHITE BLOOD COUNT 10.58 K/uL (4.8-10.8)
[2016-06-22] MEDS ORDERED: HEPARIN SOD (PORCINE) 1000 UNIT/ML 10 ML VIAL IV ONE (07:45)
[2016-06-22 07:52] LABS: ISTAT HEMOGLOBIN 15.3 g/dl (14.0-18.0); ISTAT IONIZED CALCIUM 1.19 mmol/l (1.12-1.32)
--- NOTE | 2016-06-22 07:52 | DIAGNOSTIC IMAGING REPORT ---
CHEST ONE VIEW PORTABLE CLINICAL HISTORY: Atypical chest pain COMPARISON STUDY: 03/01/2016 FINDINGS: The heart is at the upper limits of normal in size. There is no overt failure. There is no focal pulmonary consolidation. There are no pleural effusions. A density at the level the left cardiophrenic angle, likely represents a summation or atelectatic change.[ IMPRESSION: AP portable study. No acute findings. Electronically signed by: Jules Cisneros M.D. 06/22/2016 7:49 AM Dictated Date/Time: 06/22/2016 7:49 AM
[2016-06-22] MEDS ORDERED: MoRPHine SULFATE 4 MG/ML 1 ML CARP\\VIAL ONE (07:57)
[2016-06-22 08:05] LABS: BUN/CREATININE RATIO 13.4 (10-20); CALCIUM 8.8 mg/dl (8.5-10.1); CREATININE 1.1 mg/dl (0.60-1.40); POTASSIUM 4.1 mmol/L (3.5-5.1)
--- NOTE | 2016-06-22 08:05 | Procedure Note ---
Pre-Mod Sedation Assessment General Date of Moderate Sedation: Jun 22, 2016. Vital Signs: Vital Signs Past 12 Hours Date Time Temp Pulse Resp B/P Pulse Ox O2 Delivery O2 Flow Rate FiO2 06/22/16 07:36 61 06/22/16 07:30 100 Nasal Cannula 2.0 06/22/16 07:21 36.4 73 18 108/56 99 Room Air Review Cardiovascular: regular rate, rhythm, no edema Abdomen: normal bowel sounds, non tender Lungs: chest non-tender, lungs clear Airway Class: III Pre-Sedation Airway Assessment Oral Cavity: WNL Able to Visualize Vocal Cords: No Short Thick Neck: No Hx of Sleep Apnea: No Smoking Status: Never Smoker Mallampati Classification: Class II ASA Classification: Class III Procedure Planning Contraindications-for Mod Sed: None Yes Notes The planned sedation has been discussed with the patient and consent obtained. I have identified the patient, determined the appropriateness of sedation and have assessed the patient immediately prior to the procedure. All medicine(s) and interventions are by my order.
[2016-06-22] MEDS ORDERED: FINA5TAB PO (08:06)
[2016-06-22] MEDS ORDERED: NITROGLYCERIN/D5W 100MCG/ML 20ML SYR ONE (08:06)
[2016-06-22] MEDS ORDERED: ATOR10TA82 PO (08:06)
[2016-06-22] MEDS ORDERED: FENTANYL CITRATE INJ 50 MCG/1 ML 2 ML VIAL ONE (08:06)
[2016-06-22] MEDS ORDERED: NiCARDipine HCL INJ 2.5 MG/ML 10 ML AMP ONE (08:06)
[2016-06-22] MEDS ORDERED: XRL15 PO (08:06)
[2016-06-22] MEDS ORDERED: MIDAZOLAM HCL 1 MG/ML 2ML VIAL ONE (08:06)
[2016-06-22] MEDS ORDERED: CHOL20009 PO (08:06)
[2016-06-22] MEDS ORDERED: ATROPINE SULFATE 0.1 MG/ML 10 ML SYR ONE (08:27)
--- NOTE | 2016-06-22 09:01 | Procedure Note ---
Post-Mod Sedation Assessment General Date of Moderate Sedation Jun 22, 2016. Vital Signs: Vital Signs Past 12 Hours Date Time Temp Pulse Resp B/P Pulse Ox O2 Delivery O2 Flow Rate FiO2 06/22/16 07:36 61 06/22/16 07:30 100 Nasal Cannula 2.0 06/22/16 07:21 36.4 73 18 108/56 99 Room Air Review - Discharge Criteria Vital Signs Stable: Yes Alert/Oriented/Conversant: Yes Returned to Baseline Mental St: Yes Nausea Absent/Minimal: Yes Pain/Discomfort/Absent/Minimal: Yes Normal/Baseline Respirations: Yes Active Bleeding?: Yes Pt Received D/C Instructions: N/A Prescriptions Given: None Specific Proced. D/C Criteria Distal Pulses Present (Cardiac: Yes Groin site assessed-Card Cath: N/A Voided Prior To Discharge: N/A Discharged Patients Adult Escort/Transportation: Yes
[2016-06-22] MEDS ORDERED: ONDANSETRON INJ 2 MG/ML 2 ML VIAL IV PRN (09:30)
[2016-06-22] MEDS ORDERED: ACETAMINOPHEN 325 MG TAB PO PRN (09:30)
[2016-06-22] MEDS ORDERED: NITROGLYCERIN 0.4 MG SL PER TAB CHARGE SL PRN (09:30)
--- NOTE | 2016-06-22 09:43 | Cardiac Catheterization ---
Procedure Note Procedure Date Jun 22, 2016. 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 70-80% proximal stenosis in high 1st diagonal branch. Circumflex - After take-off of large obtuse marginal 95% stenosis ini the distal segment immediately followed by a post-stenosis aneurysmal segment. Luminal irregularities in small distal PLB. RCA - Dominant, sequential mid subtotal occlusions in the mid segment, thrombus present with JHONNY 2 flow distally. Distal luminal irregularities. LVEDP - 14 -- PCI -- Antithrombotic therapy: Heparin, Clopidogrel Procedure: RCA cannulated with Ikari 3.5 guide BMW wire passed across lesions into distal vessel Mid RCA lesions predilated with 2.5 compliant balloon Dilated lesion stented with 3.0 x 34 Resolute HAIM Stent post-dilated with 3.25 noncompliant balloon to high pressure IC vasodilators administered for spasm Post procedure JHONNY 3 flow, stent well expanded with minimal residual stenosis and no apparent cardiac complications. Intra-procedure bradycardia to 30s responded to atropine and hypotension to 70s treated with IVF bolus Arterial Closure: TR Band Summary: 1. Inferior STEMI/Subtotally Occluded mid RCA 2. Multivessel residual coronary artery disease - 50-60% ostial LAD, 70-80% proximal high 1st diagonal - distal circumflex diffusely diseased and aneurysmal, up to 95% stenosis 3. Normal intracardiac filling pressure 4. 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 Davon Hodge and will plan to discontinue Xarelto and continue on DAPT with ASA/ Clopidogrel for 1 year. Trend troponins until peak, Check Echo Start DANYA and Beta-julieth as BP/HR allow High-dose statin Consult cardiac Rehab Hemodynamics Rest Ao: 91/49/68 Final Ao: 100/56/79 LV: 91/14 Recommendations PCI without planned CABG Specimens None Radiation Exposure (mGy) 1365 Contrast (mls) 105 Visi Fluids (cc crystalloids) 560 Drains None Anesthesia Moderate (8:11 - 8:54) Procedural Complication(s) None Disposition ICU ACC Data Cardiac Status Clinical evaluation leading to the procedure CAD Presntation: STEMI Anginal Classification: CCS IV Heart Failure: No, NYHA Class: CCS I Cardiogenic Shock w/in 24Hrs: No Cardiac Arrest w/in 24Hrs: No Imaging studies past 6 months: No Stress studies past 6 months: No Standard Exercise Stress Test: No Stress Echocardiogram: No Stress Testing w/SPECT MPI: No Cardiac CTA: No Coronary Anatomy Dominant: Right Left Main (% Stenosis): Proximal (10-20) LAD (% Stenosis): Proximal (50-60) D1 (% Stenosis): Ostial (70-80) Circumflex (% Stenosis): Distal (95) RCA (% Stenosis): Mid (99) Diagnostic Physician's Name: Preet Colon MD Status: Emergency Closure Device Percutaneous Entry Location: Radial Closure Device: Radial Band Recommendations: PCI without planned CABG PCI Indication: Immediate PCI for STEMI Subsequent EKG Date/Time: 06/22 07:28 Lesion Segment Name: Mid RCA Culprit Artery: Yes Stenosis Prior to Rx (%): 99 Chronic Total Occlusion: No IVUS: No FFR: No Pre-Procedure JHONNY Flow: 2 Previously Treated Lesion: No Lesion Complexity: Non-High/Non-C Lesion Length (mm): 30 Thrombus Present: Yes Bifurcation Lesion: No Guidewire Across Lesion: Yes Guidewire: Stenosis Post-Procedure (%): 0 Post-Procedure JHONNY Flow: 3 Device(s) Deployed: Yes Intraprocedure Events Significant Dissection: No Perforation: No
[2016-06-22] MEDS: SODIUM CHLORIDE 0.9% 1000ML 1,000 ML IV SCH ×2 (10:13→19:08)
--- NOTE | 2016-06-22 10:25 | CARDIOLOGY CONSULTATION ---
DATE OF CONSULTATION: 06/22/2016 DATE OF CONSULTATION: 06/22/2016. REASON FOR CONSULTATION: STEMI, heart alert. CONSULTATION REQUESTED BY: Dr. Duvall in the Emergency Department. HISTORY OF PRESENT ILLNESS: Mr. Garcia is an 80-year-old male with a history of hyperlipidemia, recent distal DVT on Xarelto and dementia who presented this morning with acute onset of chest pressure. The patient states he was woken up this morning approximately less than 1 hour prior to presentation with chest pressure associated with some mild shortness of breath. The patient denies having similar pain in the past. Due to pain EMS was contacted and was brought to the Emergency Department. Initial EKG showed inferior ST elevations and sinus bradycardia with heart rates down into the 40s. Heart alert was called. He was given heparin and aspirin in the Emergency Department. The patient was taken emergently to the cardiac catheterization lab where cardiac angiography was performed via right radial wrist. He was noted to have moderate to severe disease in his LAD and distal circumflex. The RCA showed an acute subtotal occlusion in the mid segment with sequential lesions. He was treated with PCI with 1 long drug-eluting stent (3.0 x 34 Resolute) across the mid segment. Post-procedure he was chest pain free. He had JHONNY 3 flow reestablished and EKG ST segments were resolved. Intra-procedure course was complicated by bradycardia into the 30s requiring atropine and relative hypotension with systolic pressures into the 70s which responded to IV fluid bolus. PAST MEDICAL HISTORY: 1. Dementia. 2. Gastroesophageal reflux disease/hiatal hernia. 3. History of duodenal ulcer. 4. Inguinal hernia. 5. Prior DVT in March on Xarelto. SOCIAL HISTORY: He is , has 2 daughters, very remote history of smoking. Denies any alcohol or other illicit substances. 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 No family history of premature coronary artery disease or sudden cardiac . ALLERGIES: None. HOME MEDICATIONS: Include atorvastatin 10, vitamin D, Aricept, Lexapro, Proscar, Namenda, multivitamin and Xarelto. REVIEW OF SYSTEMS: Not obtained in the setting of an emergent situation. PHYSICAL EXAMINATION: VITAL SIGNS: Temperature 36.4, pulse 73, blood pressure 108/56, he is satting 99% on room air. GENERAL: The patient appeared in no acute distress. HEAD, EYES, EARS, NOSE, AND THROAT: Sclerae are anicteric. Oropharynx is clear. Mucous membranes are moist. NECK: Supple. He had no jugular venous distention. LUNGS: Clear to auscultation bilaterally. HEART: He was bradycardic but regular with no appreciable murmurs, rubs or gallops. ABDOMEN: Soft, nontender, nondistended with positive bowel sounds. EXTREMITIES: Warm. He had no significant lower extremity edema. He had intact distal pulses including including 2+ radial pulses bilaterally. SKIN: Showed no rashes or lesions. NEUROLOGIC: He had slow movements, minimal tremor noted in his extremities. PSYCHIATRIC: He was alert and appropriate. LABORATORY DATA: Sodium 146, potassium 4.0, BUN 17, creatinine 1.0. INR 1.2. White blood cell count 10.6, hemoglobin 14.1, platelets of 184. Initial troponin of 0.104. LFTs within normal limits. Lipase of 675. IMAGING: Chest x-ray showed no acute findings. EKG and cardiac catheterization as discussed in the HPI. IMPRESSION AND PLAN: 1. Acute inferior ST segment elevation myocardial infarction. 2. Moderate to severe residual coronary artery disease in LAD and circumflex. 3. Hyperlipidemia. 4. Prior history of deep venous thrombosis on Xarelto. 5. Dementia. Patient here with acute inferior STEMI treated with primary PCI with 1 drug-eluting stent to his mid RCA segment. Post-procedure, the patient was hemodynamically and electrically stable, chest pain free and ST segments have resolved. We will admit to ICU for continued monitoring. Going forward plan to trend troponins until peaks and will check echo later today. I have discussed the case with patient's primary care physician Dr. Greer. Going forward, will continue on aspirin, Plavix for at least 1 year. The patient was loaded with 600 mg of Plavix in the labor contractor. The patient's DVT was evidently a small distal DVT now more than 3 months out and as such, will plan to continue on without additional systemic anticoagulation. Otherwise, will start on high dose statin. Recommend starting beta julieth and DANYA inhibitor as blood pressure allows. Recommend cardiac rehab as able post hospitalization. In regards to patient's residual LAD and circumflex disease, at this point would plan to treat conservatively unless acute symptoms or limiting chronic symptoms in the future. [facility]
--- NOTE | 2016-06-22 10:53 | HISTORY & PHYSICAL EXAMINATION ---
DATE OF ADMISSION: 06/22/2016 An 80-year-old male admitted through the Emergency Room with acute inferior wall myocardial infarction. HISTORY OF PRESENT ILLNESS: The patient without any prior cardiac history. He does have dementia. Treated with Aricept and Namenda. He also has osteoarthritis, remote history of duodenal ulcer, hiatal hernia and reflux, nephrolithiasis, elevated PSA, was last hospitalized in February of 2016 with an influenza A infection. He also has a history of deep vein thrombosis of his left lower leg, diagnosed in late March of 2016 and he has been on Xarelto. The patient woke up this morning. Somewhere around 6:00 in the morning he was experiencing some chest pain. He was also experiencing some nausea. He was taking Tums. He thought the problem was mostly gastric related to his reflux. His became concerned about the persistence of his symptoms. He was having chest pain. He was not dyspneic. He did not feel dizzy or lightheaded so he took some Tums. He got up, he took a shower, but the problem persisted. His wanted to call an ambulance on multiple occasions, but he did not want to do that, but he agreed for her to transport him to the Emergency Room, which she did. On arrival to the Emergency Room he was evaluated by Dr. Duvall. He was diagnosed with an inferior wall myocardial infarction. Heart alert was called. Dr. Colon saw the patient. He had an emergency cardiac catheterization. He had a 99% stenosis of the mid RCA. PTCA and stent was placed. Also, Dr. Colon identified stenosis of the circumflex artery, but he had also an aneurysm poststenotic area and he decided not to intervene on that lesion for now. The patient tolerated the procedure very well. He was admitted to ICU after the procedure. He is pain free. PAST MEDICAL HISTORY: 1. Dementia, which has been progressing since 2011. Recently, he was seen by Dr. Jonathan Cordero in neurology. Currently he is on Aricept and Namenda. Dr. Cordero did order an MRI of his brain without and with contrast. It did show evidence of atrophy and mild chronic vessel disease but otherwise it was unremarkable. 2. Gastroesophageal reflux and hiatal hernia. Known for a long time. Treated. His symptoms are controlled. 3. Deep vein thrombosis of the popliteal vein and the distal vein in his left lower leg, diagnosed on 03/29/2016 and he is on Xarelto. 4. Remote history of duodenal ulcer. 5. History of right inguinal hernia repair on 2 separate occasions, the last time was in 2007. 6. History of nephrolithiasis. No recent symptomatology. 7. Prostate hypertrophy. He has undergone a TUNA procedure back on 08/28/2007. 8. Elevated PSA. He had a prostate biopsy in 2007, it was benign. 9. His last colonoscopy was in 2009. His last EGD was in 2011. 10. He has had a Pneumovax in the past. He does receive a yearly influenza vaccination. SOCIAL HISTORY: He is , has 2 daughters. Very remote history of smoking. He stopped around 1965. No alcohol. No excessive coffee, tea or soft drinks. 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 FAMILY HISTORY: His mother in her late 80s, had coronary artery disease. His father in his early 90s within a year after his , just from stress related. He had 2 brothers and 2 sisters. No coronary artery disease. Children alive and well. ALLERGIES: None. MEDICATIONS ON ADMISSION: All as noted on his home medication list. REVIEW OF SYSTEMS: At this time, he is resting comfortably. No headache. No dizziness, no lightheadedness. No chest pain. All resolved. Bradycardia also resolved. No shortness of breath. No nausea, no vomiting. No pain in his back or extremities. No ankle edema. PHYSICAL EXAMINATION: GENERAL: Well-developed in no distress. VITAL SIGNS: Blood pressure 96/60, pulse 72, respiration 14, temperature 36.4, oxygen saturation 100% on room air. SKIN: Warm and dry. No rash. HEAD, EYES, EARS, NOSE, AND THROAT: No mucosal abnormalities in his nose, mouth or throat. He has had prior cataract surgery. He usually wears correction. NECK: Supple without lymph node or thyroid enlargement. No JVD. Normal carotid pulses. No carotid bruit. HEART: Regular heart sounds without any murmur, rub or gallop. LUNGS: Clear. ABDOMEN: Soft, nontender. No organomegaly. No masses. BACK: No spinal or CVA tenderness. EXTREMITIES: No edema, clubbing, or cyanosis. 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 It is on his legs and also on the buttocks area. Absent left dorsalis pedis pulse. The rest of his pedal pulses were normal. NEUROLOGIC EXAMINATION: He is alert and oriented without evidence of any lateralized deficit. LABORATORY TESTS: WBC count 10,580, hemoglobin 14.1, hematocrit 42.8, platelet count 184,000. Sodium 145, potassium 4.1, chloride 109, CO2 30, BUN 15, creatinine 1.1, glucose 148, calcium 8.8, total bilirubin 0.4, direct bilirubin 0.1, AST 21, ALT 25, alkaline phosphatase 47, troponin I 0.104. ProBNP 190, total protein 6.9, albumin 3.5, lipase 675. His electrocardiogram showed evidence of acute inferior wall myocardial infarction. His chest x-ray was unremarkable. ASSESSMENT: 1. Acute inferior wall myocardial infarction. 2. Status post cardiac catheterization with percutaneous transluminal coronary angioplasty and stenting of a 99% stenosis of the mid right coronary artery lesion. 3. Dementia. 4. In the past, he has been suspected of having Parkinson's disease but not confirmed. 5. History of deep vein thrombosis of the distal left leg diagnosed in March of 2016. He has been on Xarelto. 6. Gastroesophageal reflux. 7. History of duodenal ulcer. 8. History of nephrolithiasis. 9. History of elevated PSA with negative biopsy of the prostate. PLAN: As noted, patient underwent a cardiac catheterization and stenting of his RCA and the procedure was well tolerated. He was admitted to ICU. Resuscitation level 1. All his laboratory tests were ordered. Because of the bradycardia he was not started on any beta julieth at this point. That is something to be decided on in the future as well as getting him started on an DANYA inhibitor. He was hypotensive initially. Will wait and see how his blood pressure evolves and decide on starting a low dose DANYA inhibitor. All his laboratory tests will be monitored. The site of access for his cardiac catheterization was his right radial and the site looks fine. He is continued on his oral medications, but it has been 3 months since his deep vein thrombosis was diagnosed in the distal left leg so it is able to be able to get him off the Xarelto since is going to be on the Plavix and aspirin at this point. Also his atorvastatin dose was increased from 10 to 40 mg. He will be monitored very closely. Reintroduce his medications. Decide on starting a beta julieth and DANYA inhibitor. His Lipitor dose was increased. His has been with him since his arrival. Dr. Colon spoke with her and explained to her his findings and what he did and I also spoke with her on multiple occasions. She also called her daughters to let them know what is going on. SUZI
--- NOTE | 2016-06-22 18:12 | CRITICAL CARE CONSULTATION ---
DATE OF CONSULTATION: 06/22/2016 CHIEF COMPLAINT: Chest pressure. HISTORY OF PRESENT ILLNESS: The patient is an 80-year-old gentleman with a history of dementia and possibly Parkinson's disease who presented to the Emergency Department this morning with chest pressure. He describes chest pressure that woke him up from his sleep at 6:00 a.m. this morning associated with nausea and diaphoresis. He took some Tums and felt like the pressure was coming and going, but eventually it did not go away. He describes it as 8/10 and denies shortness of breath. 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 Eventually he agreed to be transported to the Emergency Department by private vehicle. In the Emergency Department, he had sinus bradycardia with inferior ST segment elevations on his EKG and a heart alert was called. He was given 324 mg of aspirin and a heparin infusion and taken to the cardiac catheterization lab. He had a right radial approach and was found to have a 99% mid circumflex lesion for which a drug-eluting stent was placed. He had a proximal 10%-20% lesion in the left main, LAD proximal 50%-60%, D1 ostial 70%-80% and circumflex 95% distal lesion. The patient was then brought to the ICU. He has been loaded with 600 mg of Plavix and he is not on a beta-julieth secondary to his bradycardia. His outpatient statin dose has been increased. Presently he denies chest pain, shortness of breath, nausea, vomiting and is sitting in a chair, conversing with his . PAST MEDICAL HISTORY: Dementia, recently seen by Dr. Cordero, hiatal hernia, gastroesophageal reflux disease, osteoarthritis, nephrolithiasis, influenza, DVT diagnosed in March, taking Xarelto up to admission today; remote history of duodenal ulcer, psoriasis and hyperlipidemia. PAST SURGICAL HISTORY: Status post hernia repair x2. ALLERGIES: No known drug allergies. OUTPATIENT MEDICATIONS: Atorvastatin 10 mg q.p.m., vitamin D 2000 units daily, Aricept 10 mg in the morning, Lexapro 5 mg in the morning, Proscar 5 mg daily, Namenda 5 mg b.i.d., multivitamin daily and Xarelto 15 mg b.i.d. SOCIAL HISTORY: He is , has a remote history of tobacco use. He does not drink any alcohol. 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 He tells me he built his own airplane. FAMILY HISTORY: Significant for mother with coronary artery disease. REVIEW OF SYSTEMS: He reports problems with his memory that have been progressive. He feels like he moves slowly overall. He denies headache, visual changes. He is hard of hearing. He denies any trouble swallowing, abdominal pain, cough, fevers, chills, vomiting, diarrhea, swelling, recent fall. He reports he has an itchy rash on his knee about buttocks. Additional review of systems is negative and noncontributory or as presented in the history present illness. A 12-point review of systems was obtained. PHYSICAL EXAMINATION: GENERAL: This is a thin elderly man sitting in a chair, appearing younger than his stated age. VITAL SIGNS: Temperature is 36.6, heart rate 51, respiratory rate 13, blood pressure 101/54, oxygen saturation 100% on room air. HEENT: Pupils are equally round and reactive to light. He wears glasses. Oral mucosa is moist. Tongue is midline. He wears hearing aids. NECK: No adenopathy, no bruits. LUNGS: Clear to auscultation bilaterally. No rales, rhonchi or wheezes. HEART: Bradycardic, regular. No murmurs noted. CHEST: Symmetric expansion. ABDOMEN: Limited due to his seated position. Soft, nontender, nondistended with active bowel sounds. EXTREMITIES: Warm. No edema. Radial pulses are 1+. The catheterization site on the right wrist has a 2 x 2 and Op-Site and is clean, dry and intact. SKIN: Shows psoriasis over both knees. NEUROLOGIC: He is awake, alert. He follows commands. There is no cogwheeling. He moves all 4 extremities. He is oriented to person, place. He has somewhat masked facies. LABORATORY DATA: White blood cell count 10.58, hemoglobin 14.1, hematocrit 42.8, platelets 184. Sodium 145, potassium 4.1, chloride 109, CO2 of 30, BUN 15, creatinine 1.1. Blood sugar 148. Troponin 0.104. ProBNP 190. Lipase 675. Follow up troponin 9.5. Portable chest x-ray shows no acute findings. This film was reviewed. IMPRESSION: 1. Acute ST segment elevation inferior wall myocardial infarction. 2. Sinus bradycardia secondary to #1. 3. Coronary artery disease, status post right coronary artery drug-eluting stent today. 4. Elevated lipase, unclear significance. Abdominal exam is benign. 5. Hyperglycemia, likely secondary to stress. 6. Dementia and possible Parkinson's disease. 7. History of hyperlipidemia. 8. History of hiatal hernia. 9. Status post deep venous thrombosis diagnosed in March, treated with Xarelto up until the time of admission today. PLAN: 1. Continue aspirin, Plavix and atorvastatin, which has been increased to 40 mg. No beta-julieth secondary to bradycardia. Consider DANYA inhibitor. 2. Discontinue Xarelto, this was discussed between Dr. Colon and Dr. Greer. 3. Continue Aricept and Namenda. 4. Subcutaneous heparin for DVT prophylaxis. 5. Cardiac rehabilitation has been consulted. 6. I will order an echocardiogram. 7. Repeat the lipase in the morning. 8. Follow the blood sugars. Thank you for asking me to see this nice gentleman. Please call me with any questions or concerns. SUZI
[2016-06-22] MEDS: MEMANTINE 5 MG TAB PO SCH (19:59)
[2016-06-22] MEDS: HEPARIN SOD 5000 UNIT/0.5 ML CARP SQ SCH (20:00)
[2016-06-23] VITALS (19 sets, daily range): BP systolic 84–138; BP diastolic 45–78; PULSE 46–76; TEMP 36.5–37; O2SAT 96–100
[2016-06-23] MEDS: SODIUM CHLORIDE 0.9% 1000ML 1,000 ML IV SCH ×2 (01:30→08:05)
[2016-06-23 05:59] LABS: BASO % 0.5 %; BASO ABS # 0.04 K/uL (0-0.2); COMPLETE YES; EOS % 1.4 %; HEMATOCRIT 38.4 % (42-52); IG% 0.1 %; LYMPH % 18.8 %; LYMPH ABS # 1.66 K/uL (1.2-3.4); MEAN CELL VOLUME 93.7 fL (80-100); MEAN PLATELET VOLUME 11.5 fL (7.4-10.4); MONO % 7.2 %; PLATELET COUNT 169 K/uL (130-400); WHITE BLOOD COUNT 8.84 K/uL (4.8-10.8)
[2016-06-23 06:25] LABS: BUN/CREATININE RATIO 18.2 (10-20); CALCIUM 7.9 mg/dl (8.5-10.1); CREATININE 0.79 mg/dl (0.60-1.40); MAGNESIUM 2.1 mg/dl (1.8-2.4); POTASSIUM 4.2 mmol/L (3.5-5.1)
[2016-06-23] MEDS ORDERED: PNEUMOCOCCAL ADMINISTRATION CHARGE ONE (08:00)
[2016-06-23] MEDS ORDERED: PNEUMOCOCCAL POLYSACCHARIDES 25 MCG/0.5 ML VIAL/SYR IM. ONE (08:00)
[2016-06-23] MEDS: MEMANTINE 5 MG TAB PO SCH ×2 (08:03→21:44)
[2016-06-23] MEDS: ATORVASTATIN 40 MG TAB PO SCH (08:03)
[2016-06-23] MEDS: ASPIRIN 81 MG ECTAB PO SCH (08:03)
[2016-06-23] MEDS: MULTIVITAMIN TAB PO SCH (08:03)
[2016-06-23] MEDS: DONEPEZIL HCL 10 MG TAB PO SCH (08:03)
[2016-06-23] MEDS: FINASTERIDE 5 MG TAB PO SCH (08:03)
[2016-06-23] MEDS: ESCITALOPRAM OXALATE 10 MG TAB PO SCH (08:03)
[2016-06-23] MEDS: CLOPIDOGREL BISULFATE 75 MG TAB PO SCH (08:03)
[2016-06-23] MEDS: HEPARIN SOD 5000 UNIT/0.5 ML CARP SQ SCH ×2 (08:05→21:43)
--- NOTE | 2016-06-23 09:33 | PROGRESS NOTE ---
DATE: 06/23/2016 SUBJECTIVE: An 80-year-old male admitted with an acute inferior wall myocardial infarction. The patient underwent an emergency cardiac catheterization. He was found to have a 99% stenosis of his RCA in the mid portion. 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 The RCA lesion was stented. No treatment was recommended for the circumflex lesion at this time. The procedure was well tolerated. The patient was admitted to ICU. He has been pain free. He has not manifested any arrhythmias. He has no congestive heart failure. He is doing quite well this morning. He is sitting at bedside. Denied any headache or dizziness or lightheadedness. No chest pain and no shortness of breath. No abdominal pain. Good appetite. No pain in his back or extremities. His monitor is still showing sinus bradycardia. His heart rate was in the 40s at times during the night. PHYSICAL EXAMINATION: GENERAL: Well developed in no distress. VITAL SIGNS: Blood pressure 104/46, pulse 70, respirations 18, temperature 36.9, and oxygen saturation 98% on room air. SKIN: Warm and dry. No rash. HEENT: Completely unremarkable. NECK: No JVD. No adenopathy. HEART: Regular heart sounds. No evident murmur, rub, or gallop. LUNGS: Clear. ABDOMEN: Soft and nontender without organomegaly or masses. BACK: No spinal tenderness. EXTREMITIES: No edema, clubbing, or cyanosis. TODAY'S LABORATORY TESTS: WBC count 8840, hemoglobin 12.3, hematocrit 38.4, and platelet count 169,000. Sodium 144, potassium 4.2, chloride 113, CO2 of 25, BUN 14, creatinine 0.79, glucose 89, calcium 7.9, and magnesium 2.1. Troponin I is down to 8.24. His lipase is back to normal at 276. ASSESSMENT: 1. Acute inferior wall myocardial infarction. 2. 99% stenosis of his mid RCA. 3. 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 4. Hypercholesterolemia. 5. Sinus bradycardia. 6. Dementia. PLAN: 1. His echocardiogram ordered by Dr. Hare is pending. 2. Discontinue IV fluid. 3. He is quite stable. 4. We will transfer him to telemetry. We will increase his activity. 5. Cardiac rehabilitation consultation was already requested by Dr. Colon.
--- NOTE | 2016-06-23 09:51 | ECHOCARDIOGRAM REPORT ---
*NOTICE TO RECEIVING DEMOCRAT AGENCY This information is strictly Confidential and protected under [place] law. [place] law prohibits you from making any further disclosure of this information unless further disclosure is expressly permitted by the written consent of the person to whom it pertains or is authorized by law. A general authorization for the release of medical or other information is not sufficient for this purpose. Hospital accepts no responsibility if the information is made available to any other person, INCLUDING THE PATIENT. Interpretation Summary * Name: NAOMI SOOD Study Date: 06/22/2016 01:23 PM BP: 88/49 mmHg * Patient Location: [facility] HR: 50 * : 1935 (M/d/yyyy) Gender: Male Height: 67 in * Age: 80 yrs Ethnicity: CA Weight: 153 lb * Ordering Physician: Preet Colon * Referring Physician: Self, Referred * Performed By: Yasir aGitan RDCS * * Reason For Study: AMI * BSA: 1.8 m2 * -- Conclusions -- * 1. Normal LV size, borderline concentric LVH. * 2. Normal LV systolic function. LVEF 55-60%. Inferior basal hypokinesis. * 3. Normal RV size and function. * 4. Mild aortic valve sclerosis without stenosis. Mild aortic regurgitation. * 5. Mild mitral regurgitation. * 6. Normal estimated RA and PA pressures. * 7. No prior studies for comparison. Procedure Details * A complete two-dimensional transthoracic echocardiogram was performed (2D, M-mode, Doppler and color flow Doppler). * The study was technically adequate. Left Ventricle * The left ventricle is grossly normal size. * There is borderline concentric left ventricular hypertrophy. * Ejection Fraction = 55-60%. * Basal inferior hypokinesis. Right Ventricle * The right ventricle is grossly normal size. * The right ventricular systolic function is normal as assessed by tricuspid annular plane systolic excursion (TAPSE) (normal >1.5 cm). Atria * The left atrial size is normal. * Right atrial size is normal. * No ASD detected; PFO is not assessed. Mitral Valve * The mitral valve leaflets appear thickened, but open well. * Calcified mitral apparatus. * There is no mitral valve stenosis. * There is mild mitral regurgitation. Tricuspid Valve * The tricuspid valve is not well visualized, but is grossly normal. * There is no tricuspid stenosis. * There is trace tricuspid regurgitation. Aortic Valve * Aortic valve sclerosis mild, without significant aortic valvular stenosis. * Mild aortic regurgitation. Pulmonic Valve * The pulmonary valve is inadequately visualized, but the Doppler data is adequate for interpretation. * Pulmonic stenosis is absent. * Trace pulmonic valvular regurgitation. Great Vessels * The aortic root and proximal ascending aorta are normal sized. Pericardium/Pleural * There is no pericardial effusion. Great Vessels * Normal inferior vena cava size and collapsability with sniff indicates a normal right atrial pressure of 3 mmHg * There is no evidence of pulmonary hypertension. The PA systolic pressure is less than 36 mmHg. MMode 2D Measurements and Calculations IVSd 1.1 cm IVSs 1.4 cm LVIDd 4.7 cm LVIDs 3.5 cm LVPWd 1.1 cm LVPWs 1.4 cm IVS/LVPW 1.0 FS 24.8 % EDV(Teich) 102.5 ml ESV(Teich) 52.2 ml EF(Teich) 49.0 % EDV(cubed) 104.0 ml ESV(cubed) 44.3 ml EF(cubed) 57.4 % % IVS thick 24.9 % % LVPW thick 25.3 % LV mass(C)d 191.7 grams LV mass(C)dI 106.2 grams/m\S\2 LV mass(C)s 175.0 grams LV mass(C)sI 97.0 grams/m\S\2 SV(Teich) 50.3 ml SI(Teich) 27.9 ml/m\S\2 SV(cubed) 59.7 ml SI(cubed) 33.1 ml/m\S\2 EPSS 0.45 cm Ao root diam 3.6 cm Ao root area 10.3 cm\S\2 ACS 2.1 cm LA dimension 4.0 cm asc Aorta Diam 3.0 cm LA/Ao 1.1 LVOT diam 2.0 cm LVOT area 3.2 cm\S\2 LVAd ap4 24.0 cm\S\2 LVLd ap4 7.6 cm EDV(MOD-sp4) 62.0 ml LVAs ap4 13.9 cm\S\2 LVLs ap4 6.7 cm ESV(MOD-sp4) 28.0 ml EF(MOD-sp4) 54.8 % LVAd ap2 22.5 cm\S\2 LVLd ap2 7.6 cm EDV(MOD-sp2) 53.0 ml LVAs ap2 13.6 cm\S\2 LVLs ap2 6.5 cm ESV(MOD-sp2) 24.0 ml EF(MOD-sp2) 54.7 % SV(MOD-sp4) 34.0 ml SI(MOD-sp4) 18.8 ml/m\S\2 SV(MOD-sp2) 29.0 ml SI(MOD-sp2) 16.1 ml/m\S\2 Doppler Measurements and Calculations MV E max sumeet 77.5 cm/sec MV A max sumeet 54.8 cm/sec MV E/A 1.4 MV dec time 0.20 sec Ao V2 max 119.0 cm/sec Ao max PG 5.7 mmHg Ao max PG (full) 3.2 mmHg BONNY(V,A) 2.1 cm\S\2 BONNY(V,D) 2.1 cm\S\2 AI max sumeet 231.3 cm/sec AI max PG 22.6 mmHg AI dec slope 81.9 cm/sec\S\2 AI P1/2t 827.6 msec LV V1 max PG 2.5 mmHg LV V1 max 78.4 cm/sec PA V2 max 81.4 cm/sec PA max PG 2.7 mmHg PI end-d sumeet 65.2 cm/sec TR max sumeet 259.4 cm/sec
--- NOTE | 2016-06-23 11:34 | Cardiology Follow-Up ---
Subjective Subjective Date of Service: Jun 23, 2016. Pt evaluation today including: conversation w/ patient, conversation w/ family , physical exam, chart review, lab review, review of studies, conversation w/ healthcare management consultant, review of inpatient medication list Additional Details: Feeling well. No chest pain overnight. Difficulty sleeping last night due due cords/telemetry but new complaints this AM. No events on telemetry Problem List Medical Problems: (1) Dementia Status: Acute (2) Hyperglycemia Status: Acute (3) STEMI (ST elevation myocardial infarction) Status: Acute (4) Viral bronchitis Status: Acute Review of Systems Constitutional: No chills, No fever Respiratory: No cough, No shortness of breath, No sputum Cardiac: No chest pain, No edema Abdomen: No nausea, No pain Male : No dysuria Heme: No abnormal bleeding/bruising Skin: No rash Objective Vital Signs Last Vital Signs Documentation Date Time Temp Pulse Resp B/P Pulse Ox O2 Delivery O2 Flow Rate FiO2 06/23/16 08:00 36.9 70 18 104/46 98 Room Air 06/22/16 07:51 2.0 Physical Exam: General Appearance: no apparent distress Neck: supple, no JVD Respiratory/Chest: lungs clear, normal breath sounds, no respiratory distress Cardiovascular: regular rate, rhythm, no edema, no JVD, + systolic murmur Abdomen: normal bowel sounds, non tender Extremities: normal inspection, no pedal edema, + pertinent finding (No erythema, ecchymosis at radial artery access site. Intact distal pulses, sensation) Neurologic/Psychiatric: no motor/sensory deficits, alert, normal mood/affect Skin: normal color, warm/dry, no rash Assessment and Plan 1. Inferior STEMI - s/p PCI with HAIM to mid RCA. Trop peaked, CP free. LV function preserved on Echo. 2. Residual LAD/circumflex disease -- medical management 3. Sinus Bradycardia - holding beta-julieth for now 4. Hyperlipidemia - on high intensity statin 5. Dementia - on home therapy 6. Prior DVT - distal clot, >3 months ago, Xarelto discontinued. Overall doing well post [place]/PCI yesterday. Agree with transfer to telemetry today. Continue ASA/Plavix, Statin Start low dose DANYA, lisinopril 2.5mg today Continue to hold BBlocker in setting of bradycardia. Will continue to follow. If stable overnight, OK with possible discharge tomorrow. Medications: Current Inpatient Medications Medications (Trade) Dose Ordered Sig/Dee Route Start Time Stop Time Status Last Admin Dose Admin Nitroglycerin (Nitrostat Tab) 0.4 mg UD PRN SL 06/22/16 09:30 07/22/16 09:29 Ondansetron HCl (Zofran Inj) 4 mg Q6H PRN IV 06/22/16 09:30 07/22/16 09:29 Acetaminophen (Tylenol Tab) 650 mg Q4H PRN PO 06/22/16 09:30 07/22/16 09:29 Clopidogrel Bisulfate (plAVix TAB) 75 mg QAM PO 06/23/16 09:00 07/23/16 08:59 06/23/16 08:03 75 MG Donepezil HCl (Aricept Tab) 10 mg QAM PO 06/23/16 09:00 07/23/16 08:59 06/23/16 08:03 10 MG Escitalopram Oxalate (Lexapro Tab) 5 mg QAM PO 06/23/16 09:00 07/23/16 08:59 06/23/16 08:03 5 MG Finasteride (Proscar Tab) 5 mg DAILY PO 06/23/16 09:00 07/23/16 08:59 06/23/16 08:03 5 MG Memantine (Namenda Tab) 5 mg BID PO 06/22/16 21:00 07/22/16 20:59 06/23/16 08:03 5 MG Multivitamins (Multivitamin Tab) 1 tab QAM PO 06/23/16 09:00 07/23/16 08:59 06/23/16 08:03 1 TAB Atorvastatin Calcium (Lipitor Tab) 40 mg QAM PO 06/23/16 09:00 07/23/16 08:59 06/23/16 08:03 40 MG Aspirin (Ecotrin Tab) 81 mg QAM PO 06/23/16 09:00 07/23/16 08:59 06/23/16 08:03 81 MG Heparin Sodium (Porcine) (Heparin Sq 5000 Unit/0.5ml) 5,000 unit Q12 SQ 06/22/16 21:00 07/22/16 20:59 06/23/16 08:05 5,000 UNIT Lab Results: 06/23/16 05:28 Red Blood Count 4.10, Mean Corpuscular Volume 93.7, Mean Corpuscular Hemoglobin 30.0, Mean Corpuscular Hemoglobin Concent 32.0, Mean Platelet Volume 11.5, Neutrophils (%) (Auto) 72.0, Lymphocytes (%) (Auto) 18.8, Monocytes (%) (Auto) 7.2, Eosinophils (%) (Auto) 1.4, Basophils (%) (Auto) 0.5, Neutrophils # (Auto) 6.37, Lymphocytes # (Auto) 1.66, Monocytes # (Auto) 0.64, Eosinophils # (Auto) 0.12, Basophils # (Auto) 0.04 06/23/16 05:28 Test 06/22/16 15:45 06/23/16 05:28 Bedside Glucose 112 mg/dl (70-99) White Blood Count 8.84 K/uL (4.8-10.8) Red Blood Count 4.10 M/uL (4.7-6.1) Hemoglobin 12.3 g/dL (14.0-18.0) Hematocrit 38.4 % (42-52) Mean Corpuscular Volume 93.7 fL (80-100) Mean Corpuscular Hemoglobin 30.0 pg (25-34) Mean Corpuscular Hemoglobin Concent 32.0 g/dl (32-36) Platelet Count 169 K/uL (130-400) Mean Platelet Volume 11.5 fL (7.4-10.4) Neutrophils (%) (Auto) 72.0 % Lymphocytes (%) (Auto) 18.8 % Monocytes (%) (Auto) 7.2 % Eosinophils (%) (Auto) 1.4 % Basophils (%) (Auto) 0.5 % Neutrophils # (Auto) 6.37 K/uL (1.4-6.5) Lymphocytes # (Auto) 1.66 K/uL (1.2-3.4) Monocytes # (Auto) 0.64 K/uL (0.11-0.59) Eosinophils # (Auto) 0.12 K/uL (0-0.5) Basophils # (Auto) 0.04 K/uL (0-0.2) RDW Standard Deviation 47.0 fL (36.4-46.3) RDW Coefficient of Variation 13.8 % (11.5-14.5) Immature Granulocyte % (Auto) 0.1 % Immature Granulocyte # (Auto) 0.01 K/uL (0.00-0.02) Anion Gap 6.0 mmol/L (3-11) Est Creatinine Clear Calc Drug Dose 69.7 ml/min Estimated GFR () 96.9 Estimated GFR (Non- 83.6 BUN/Creatinine Ratio 18.2 (10-20) Calcium Level 7.9 mg/dl (8.5-10.1) Magnesium Level 2.1 mg/dl (1.8-2.4) Troponin I 8.240 ng/ml (0-0.045) Lipase 276 U/L (73-393)
[2016-06-24 04:00] VITALS: O2SAT 99
[2016-06-24 04:14] VITALS: BP 115/64; PULSE 71; TEMP 36.7; O2SAT 99
[2016-06-24 06:29] LABS: BASO % 0.4 %; BASO ABS # 0.03 K/uL (0-0.2); COMPLETE YES; EOS % 2.3 %; HEMATOCRIT 39.5 % (42-52); IG% 0.3 %; LYMPH % 18.1 %; LYMPH ABS # 1.36 K/uL (1.2-3.4); MEAN CELL VOLUME 91.4 fL (80-100); MEAN CORPUSCULAR HEMOGLOBIN 29.9 pg (25-34); MEAN CORPUSCULAR HGB CONC 32.7 g/dl (32-36); MEAN PLATELET VOLUME 11.3 fL (7.4-10.4); MONO % 9.3 %; NEUT % 69.6 %; PLATELET COUNT 160 K/uL (130-400); RED BLOOD COUNT 4.32 M/uL (4.7-6.1); WHITE BLOOD COUNT 7.52 K/uL (4.8-10.8)
[2016-06-24 07:02] LABS: BUN/CREATININE RATIO 16.9 (10-20); CALCIUM 7.9 mg/dl (8.5-10.1); CREATININE 0.76 mg/dl (0.60-1.40); POTASSIUM 3.8 mmol/L (3.5-5.1)
[2016-06-24] MEDS: DONEPEZIL HCL 10 MG TAB PO SCH (07:33)
[2016-06-24] MEDS: ASPIRIN 81 MG ECTAB PO SCH (07:33)
[2016-06-24] MEDS: MULTIVITAMIN TAB PO SCH (07:34)
[2016-06-24] MEDS: ATORVASTATIN 40 MG TAB PO SCH (07:34)
[2016-06-24] MEDS: CLOPIDOGREL BISULFATE 75 MG TAB PO SCH (07:34)
[2016-06-24] MEDS: ESCITALOPRAM OXALATE 10 MG TAB PO SCH (07:34)
[2016-06-24] MEDS: MEMANTINE 5 MG TAB PO SCH (07:34)
[2016-06-24] MEDS ORDERED: PLV75 PO (07:35)
[2016-06-24] MEDS ORDERED: NTRSLP4 SL (07:35)
[2016-06-24] MEDS ORDERED: LPT40 PO (07:35)
[2016-06-24] MEDS: FINASTERIDE 5 MG TAB PO SCH (07:35)
[2016-06-24] MEDS ORDERED: ASPEC81 PO (07:35)
--- NOTE | 2016-06-24 07:39 | Discharge Instructions ---
Discharge Instructions Date of Service Jun 24, 2016. Admission Reason for Admission: STEMI Discharge Discharge Diagnosis / Problem: Acute inferior wall myocardial infarction Discharge Goals Goal(s): Decrease discomfort, Improve function, Increase independence, Improve disease control, Improve nutritional status, Learn about illness Activity Recommendations Activity Limitations: as noted below (gradual increase in activity) . Instructions / Follow-Up Instructions / Follow-Up DR BLACKWOOD. CALL FOR APPOINTMENT DR POTTER IN ONE WEEK Current Hospital Diet Patient's current hospital diet: AHA Diet (Heart Healthy) Discharge Diet Recommended Diet: AHA Diet (Heart Healthy) Pending Studies Studies pending at discharge: no Medical Emergencies . Who to Call and When: Medical Emergencies: If at any time you feel your situation is an emergency, please call 911 immediately. . Non-Emergent Contact Non-Emergency issues call your: Primary Care Provider, [facility] . . "Provider Documentation" section prepared by Gerber Potter. . VTE Core Measure Inpt VTE Proph given/why not?: Other Anticoagulation
[2016-06-24] MEDS: HEPARIN SOD 5000 UNIT/0.5 ML CARP SQ SCH (07:42)
[2016-06-24 07:43] VITALS: BP 131/63; PULSE 66; TEMP 36.4; O2SAT 99
[2016-06-24] MEDS ORDERED: LSN5 PO (07:45)
--- NOTE | 2016-06-24 08:08 | Cardiology Follow-Up ---
Subjective Subjective Date of Service: Jun 24, 2016. Pt evaluation today including: conversation w/ patient, conversation w/ family , physical exam, chart review, lab review, review of studies, conversation w/ commercial sales consultant, review of inpatient medication list Additional Details: No events overnight. No chest pain. No shortness of breath. No events on telemetry Problem List Medical Problems: (1) Dementia Status: Acute (2) Hyperglycemia Status: Acute (3) STEMI (ST elevation myocardial infarction) Status: Acute (4) Viral bronchitis Status: Acute Review of Systems Constitutional: No chills, No fever Respiratory: No cough, No shortness of breath, No sputum Cardiac: No chest pain, No edema Abdomen: No nausea, No pain Male : No dysuria Heme: No abnormal bleeding/bruising Skin: No rash Objective Vital Signs Last Vital Signs Documentation Date Time Temp Pulse Resp B/P Pulse Ox O2 Delivery O2 Flow Rate FiO2 06/24/16 04:14 36.7 71 20 115/64 99 Room Air 06/22/16 07:51 2.0 Physical Exam: General Appearance: no apparent distress Neck: supple, no JVD Respiratory/Chest: lungs clear, normal breath sounds, no respiratory distress Cardiovascular: regular rate, rhythm, no edema, no JVD, + systolic murmur Abdomen: normal bowel sounds, non tender Extremities: normal inspection, no pedal edema, + pertinent finding (No erythema, ecchymosis at radial artery access site. Intact distal pulses, sensation) Neurologic/Psychiatric: no motor/sensory deficits, alert, normal mood/affect Skin: normal color, warm/dry, no rash Assessment and Plan 1. Inferior STEMI - s/p PCI with HAIM to mid RCA. Trop peaked, CP free. LV function preserved on Echo. 2. Residual LAD/circumflex disease -- medical management 3. Sinus Bradycardia - holding beta-julieth for now 4. Hyperlipidemia - on high intensity statin 5. Dementia - on home therapy 6. Prior DVT - distal clot, >3 months ago, Xarelto discontinued. Continues to do well post [place]/PCI on 06/22. From a cardiac standpoint OK with discharge today Continue ASA/Plavix, Statin Started DANYA, lisinopril 2.5 BETA-JULIETH HELD ON DISCHARGE IN THE SETTING OF BRADYCARDIA---> will start as an outpatient Follow-up with me in cardiology clinic in 2-3 weeks. Medications: Current Inpatient Medications Medications (Trade) Dose Ordered Sig/Dee Route Start Time Stop Time Status Last Admin Dose Admin Nitroglycerin (Nitrostat Tab) 0.4 mg UD PRN SL 06/22/16 09:30 07/22/16 09:29 Ondansetron HCl (Zofran Inj) 4 mg Q6H PRN IV 06/22/16 09:30 07/22/16 09:29 Acetaminophen (Tylenol Tab) 650 mg Q4H PRN PO 06/22/16 09:30 07/22/16 09:29 Clopidogrel Bisulfate (plAVix TAB) 75 mg QAM PO 06/23/16 09:00 07/23/16 08:59 06/24/16 07:34 75 MG Donepezil HCl (Aricept Tab) 10 mg QAM PO 06/23/16 09:00 07/23/16 08:59 06/24/16 07:33 10 MG Escitalopram Oxalate (Lexapro Tab) 5 mg QAM PO 06/23/16 09:00 07/23/16 08:59 06/24/16 07:34 5 MG Finasteride (Proscar Tab) 5 mg DAILY PO 06/23/16 09:00 07/23/16 08:59 06/24/16 07:35 5 MG Memantine (Namenda Tab) 5 mg BID PO 06/22/16 21:00 07/22/16 20:59 06/24/16 07:34 5 MG Multivitamins (Multivitamin Tab) 1 tab QAM PO 06/23/16 09:00 07/23/16 08:59 06/24/16 07:34 1 TAB Atorvastatin Calcium (Lipitor Tab) 40 mg QAM PO 06/23/16 09:00 07/23/16 08:59 06/24/16 07:34 40 MG Aspirin (Ecotrin Tab) 81 mg QAM PO 06/23/16 09:00 07/23/16 08:59 06/24/16 07:33 81 MG Heparin Sodium (Porcine) (Heparin Sq 5000 Unit/0.5ml) 5,000 unit Q12 SQ 06/22/16 21:00 07/22/16 20:59 06/24/16 07:42 5,000 UNIT Lab Results: Current Inpatient Medications Medications (Trade) Dose Ordered Sig/Dee Route Start Time Stop Time Status Last Admin Dose Admin Nitroglycerin (Nitrostat Tab) 0.4 mg UD PRN SL 06/22/16 09:30 07/22/16 09:29 Ondansetron HCl (Zofran Inj) 4 mg Q6H PRN IV 06/22/16 09:30 07/22/16 09:29 Acetaminophen (Tylenol Tab) 650 mg Q4H PRN PO 06/22/16 09:30 07/22/16 09:29 Clopidogrel Bisulfate (plAVix TAB) 75 mg QAM PO 06/23/16 09:00 07/23/16 08:59 06/24/16 07:34 75 MG Donepezil HCl (Aricept Tab) 10 mg QAM PO 06/23/16 09:00 07/23/16 08:59 06/24/16 07:33 10 MG Escitalopram Oxalate (Lexapro Tab) 5 mg QAM PO 06/23/16 09:00 07/23/16 08:59 06/24/16 07:34 5 MG Finasteride (Proscar Tab) 5 mg DAILY PO 06/23/16 09:00 07/23/16 08:59 06/24/16 07:35 5 MG Memantine (Namenda Tab) 5 mg BID PO 06/22/16 21:00 07/22/16 20:59 06/24/16 07:34 5 MG Multivitamins (Multivitamin Tab) 1 tab QAM PO 06/23/16 09:00 07/23/16 08:59 06/24/16 07:34 1 TAB Atorvastatin Calcium (Lipitor Tab) 40 mg QAM PO 06/23/16 09:00 07/23/16 08:59 06/24/16 07:34 40 MG Aspirin (Ecotrin Tab) 81 mg QAM PO 06/23/16 09:00 07/23/16 08:59 06/24/16 07:33 81 MG Heparin Sodium (Porcine) (Heparin Sq 5000 Unit/0.5ml) 5,000 unit Q12 SQ 06/22/16 21:00 07/22/16 20:59 06/24/16 07:42 5,000 UNIT
[2016-06-24 08:17] VITALS: O2SAT 100
[2016-06-24 08:21] VITALS: BP 115/64; PULSE 71; TEMP 36.7; O2SAT 100
--- NOTE | 2016-06-24 21:28 | PROGRESS NOTE ---
DATE: 06/24/2016 An 80-year-old male, admitted with acute ST segment elevation inferior wall myocardial infarction. He underwent a cardiac catheterization and stenting of his mid RCA stenosis of 99%. 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 His medical problems also include cognitive impairment, peptic ulcer disease and nephrolithiasis. The patient tolerated the procedure very well. He did not have any recurrence of any chest pain. Initially, he was also bradycardic. His heart rate, at times, dropped down to the upper 30s and low 40s. His echocardiogram was done yesterday and he has a normal left ejection fraction. There was no evidence of any wall motion abnormalities. The patient is doing well. No headache. No dizziness. No chest pain or shortness of breath. No abdominal pain, no nausea, no vomiting. No problem urinating. No pain in his back or extremities. PHYSICAL EXAMINATION: GENERAL: Well-developed, in no distress. VITAL SIGNS: Blood pressure 131/63, pulse 66, respirations 20, temperature 36.4 and oxygen saturation 99% on room air. SKIN: Warm and dry. No rash. HEENT: Wears glasses. No mucosal abnormality. NECK: No JVD, no adenopathy. HEART: Regular heart sounds. LUNGS: Clear. ABDOMEN: Soft and benign. EXTREMITIES: No edema, clubbing or cyanosis. ASSESSMENT: 1. Acute inferior wall myocardial infarction. 2. Status post stenting of the mid right coronary artery. 3. 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 4. Cognitive impairment. 5. Hypercholesterolemia. PLAN: 1. The patient is doing quite well. He is completely asymptomatic. 2. As noted, patient has been seen by Dr. Colon. Dr. Colon did the cardiac catheterization and the procedure noted above. 3. The patient was discharged home today. 4. Dr. Colon already ordered a cardiac rehabilitation consultation. 5. The patient will be seen by Dr. Colon and I will see him in the office next week.
--- NOTE | 2016-07-07 03:07 | DISCHARGE SUMMARY ---
DISCHARGE DIAGNOSES: 1. Acute inferior wall myocardial infarction. 2. Hypercholesterolemia. 3. Dementia. 4. Gastroesophageal reflux. 5. History of nephrolithiasis. 6. Parkinsonism. DISCHARGE MEDICATIONS: Included: 1. Aspirin 81 mg daily. 2. Lipitor 40 mg daily. 3. Plavix 75 mg daily. 4. Lisinopril 5 mg daily. 5. Nitrostat 0.4 mg sublingually p.r.n. 6. Vitamin D 2000 international units daily. 7. Aricept 10 mg daily. 8. Lexapro 10 mg daily. 9. Finasteride 5 mg daily. 10. Namenda 5 mg daily. 11. Multivitamin one daily. CONSULTATIONS: Dr. Preet Colon in interventional cardiology. PROCEDURES: 1. Cardiac catheterization. 2. Stenting of the right coronary artery. HISTORY OF PRESENT ILLNESS: An 80-year-old male, admitted through the Emergency Room with an acute inferior wall myocardial infarction. The patient without any prior cardiac history. He has dementia. He also has osteoarthritis, remote history of duodenal ulcer, gastroesophageal reflux, nephrolithiasis and elevated PSA. He was last hospitalized in February 2016 with influenza A. He also has a history of deep vein thrombosis of his left lower leg, diagnosed in March 2016 and has been treated with Xarelto. The patient woke up on the morning of admission around 6:00 in the morning. He was experiencing chest pain. He also experienced some nausea. He was taking Tums. He thought the problem was mostly gastric related to his reflux. His became concerned about the persistence of his symptoms. He was having chest pain. He was not dyspneic. He was not feeling dizzy or lightheaded, so he took the Tums. He got up. He took a shower, but the pain in his chest persisted. His wanted to call an ambulance, the patient declined, but he agreed to have him transported to the Emergency Room. On arrival, he was evaluated by Dr. Duvall. He was diagnosed with an inferior wall myocardial infarction. Heart alert protocol was initiated. Dr. Colon saw the patient and he was taken directly to the cardiac catheterization lab. The patient was found to have a 99% stenosis of his mid RCA. PTCA and stent placement were undertaken with success. Dr. Colon also identified stenosis of the circumflex artery, but he had an aneurysm in the poststenotic area and he decided not to intervene on that lesion at the present time. The patient was admitted to ICU after his cardiac catheterization. He was pain-free. PAST MEDICAL HISTORY, SOCIAL HISTORY AND FAMILY HISTORY: All as noted. ALLERGIES: None. MEDICATIONS ON ADMISSION: All as noted on his home medication list. PHYSICAL EXAMINATION AND ADMISSION LABORATORY TESTS: All as noted. HOSPITAL COURSE: The patient was admitted to ICU after his cardiac catheterization and stenting of his mid RCA. Resuscitation level 1. All his laboratory tests were ordered. He was bradycardic. Beta blockers were not initiated. His blood pressure was initially low. DANYA inhibitor was not initiated on initial treatment. The site of his cardiac catheterization and his right radial artery site showed no evidence of any problem. The patient was continued on his oral medications, but it has been 3 months since he presented with his deep vein thrombosis of the distal left leg and he was on Xarelto since then. Now that he was to be on aspirin and also on Plavix, we decided to stop the Xarelto. He has received a full 3-months course. Overall, his postoperative course was quite unremarkable. He did not have any chest pain. His heart rate improved. His blood pressure improved. The patient was started on low-dose lisinopril. He was transferred to PCU with telemetry. His activity was increased. He was ambulating without any problem. He was tolerating his diet. Ambulating. Tolerating his medications. The patient was discharged home. Medications are as noted above. Follow up with Dr. Colon. Follow up with me after his discharge. Cardiac rehabilitation plan.
== END 2016-06-24 08:56 | disposition home or self-care (01) | DRG 247 ==
LOC: C.EDB 07:17 → C.MSICU 09:28 → C.2E 06-23 08:42
PROVIDERS: ADMIT Internal Medicine; ATTEND Internal Medicine
PROC: 027034Z Dilation of Coronary Artery, One Artery with Drug-eluting Intraluminal Device, Percutaneous Approach (ICD-10-PCS; principal; 2016-06-22 08:46)
PROC: 4A023N7 Measurement of Cardiac Sampling and Pressure, Left Heart, Percutaneous Approach (ICD-10-PCS; principal; 2016-06-22 08:46)
PROC: B2111ZZ Fluoroscopy of Multiple Coronary Arteries using Low Osmolar Contrast (ICD-10-PCS; principal; 2016-06-22 08:46)
DX: I21.19 ST elevation (STEMI) myocardial infarction involving other coronary artery of inferior wall (principal); I25.10 Atherosclerotic heart disease of native coronary artery without angina pectoris; Z86.718 Personal history of other venous thrombosis and embolism; F03.90 Unspecified dementia, unspecified severity, without behavioral disturbance, psychotic disturbance, mood disturbance, and anxiety; N40.0 Benign prostatic hyperplasia without lower urinary tract symptoms; K21.9 Gastro-esophageal reflux disease without esophagitis; Z87.891 Personal history of nicotine dependence; E78.00 Pure hypercholesterolemia, unspecified

== ENCOUNTER → 2016-10-03 | Outpatient (CLI) | payer OTHER ==
[~2016-10-03] MED LIST changes: +ASPEC81 PO; -ATOR-22 PO; +CHOL20009 PO; -DEXT30TA7 PO; +FINA5TAB PO; -GLUCPOW41 PO; -HYCUDL5 PO; +LPT40 PO; +LSN5 PO; +PLV75 PO; -TMF75 PO
== END | disposition home or self-care (01) ==
LOC: C.LABSPEC 12:18
PROVIDERS: ATTEND Urology
DX: R97.20 Elevated prostate specific antigen [PSA] (principal)

== ENCOUNTER → 2016-12-11 | Outpatient (CLI) | payer OTHER ==
[2016-12-11 12:55] LABS: ALT/SGPT 27 U/L (12-78); BLOOD UREA NITROGEN 15 mg/dl (7-18); CALCIUM 8.8 mg/dl (8.5-10.1); CARBON DIOXIDE 29 mmol/L (21-32); CHLORIDE 107 mmol/L (98-107); CHOLESTEROL 151 mg/dl (0-200); GLUCOSE 90 mg/dl (70-99); POTASSIUM 4.2 mmol/L (3.5-5.1); SODIUM 141 mmol/L (136-145); TRIGLYCERIDES 103 mg/dl (0-150); VERY LOW DENSITY LIPOPROT CALC 21 mg/dl
[2016-12-11 12:58] LABS: ALKALINE PHOSPHATASE 57 U/L (45-117); AST/SGOT 22 U/L (15-37); HDL CHOLESTEROL 50 mg/dl
== END | disposition home or self-care (01) ==
LOC: C.LABSPEC 12:17
PROVIDERS: ATTEND Internal Medicine
DX: I25.10 Atherosclerotic heart disease of native coronary artery without angina pectoris (principal); E78.5 Hyperlipidemia, unspecified; G20 Parkinson's disease

== ENCOUNTER → 2017-02-18 | Outpatient (CLI) | payer OTHER | END | disposition home or self-care (01) | LOC: C.LABSPEC 14:55 | PROVIDERS: ATTEND Internal Medicine | DX: L02.612 Cutaneous abscess of left foot (principal) ==

== ENCOUNTER → 2017-04-08 | Outpatient (CLI) | payer OTHER ==
[2017-04-08 15:49] LABS: BASO % 0.3 %; BASO ABS # 0.03 K/uL (0-0.2); EOS ABS # 0.09 K/uL (0-0.5); HEMATOCRIT 42.8 % (42-52); HEMOGLOBIN 13.9 g/dL (14.0-18.0); IG# 0.02 K/uL (0.00-0.02); LYMPH % 16.4 %; LYMPH ABS # 1.47 K/uL (1.2-3.4); MEAN CELL VOLUME 92.6 fL (80-100); MEAN CORPUSCULAR HEMOGLOBIN 30.1 pg (25-34); MEAN CORPUSCULAR HGB CONC 32.5 g/dl (32-36); MEAN PLATELET VOLUME 11.8 fL (7.4-10.4); MONO % 9.4 %; MONO ABS # 0.84 K/uL (0.11-0.59); NEUT % 72.7 %; NEUT ABS # 6.49 K/uL (1.4-6.5); PLATELET COUNT 230 K/uL (130-400); RED CELL DISTRIBUTION WIDTH CV 13.8 % (11.5-14.5); RED CELL DISTRIBUTION WIDTH SD 46.8 fL (36.4-46.3); WHITE BLOOD COUNT 8.94 K/uL (4.8-10.8)
[2017-04-08 16:02] LABS: ALBUMIN 3.5 gm/dl (3.4-5.0); ALT/SGPT 19 U/L (12-78); AST/SGOT 19 U/L (15-37); BLOOD UREA NITROGEN 16 mg/dl (7-18); CALCIUM 9.1 mg/dl (8.5-10.1); CARBON DIOXIDE 29 mmol/L (21-32); CHOLESTEROL 153 mg/dl (0-200); CREATININE 0.91 mg/dl (0.60-1.40); GLUCOSE 95 mg/dl (70-99); POTASSIUM 4.7 mmol/L (3.5-5.1); SODIUM 138 mmol/L (136-145)
[2017-04-08 16:06] LABS: ALKALINE PHOSPHATASE 58 U/L (45-117); LDL CHOLESTEROL (DIRECT) 90 mg/dl; TOTAL PROTEIN 6.9 gm/dl (6.4-8.2)
== END | disposition home or self-care (01) ==
LOC: C.LABSPEC 15:23
PROVIDERS: ATTEND Internal Medicine
DX: R97.20 Elevated prostate specific antigen [PSA] (principal); I25.119 Atherosclerotic heart disease of native coronary artery with unspecified angina pectoris; E78.5 Hyperlipidemia, unspecified

== ENCOUNTER → 2017-05-27 | Outpatient (CLI) | payer OTHER ==
--- NOTE | 2017-05-27 14:32 | DIAGNOSTIC IMAGING REPORT ---
LEFT KNEE 2 VIEWS CLINICAL HISTORY: Left knee pain. FINDINGS: AP and lateral views of the left knee are compared to study dated 03/04/2007. The skeletal structures are osteopenic. No fracture is seen. Mild to moderate degenerative narrowing is seen at the patellofemoral articulation. Only minimal narrowing is seen in the medial and lateral compartments. A calcified fabella is incidentally noted. There is no joint effusion. The overlying soft tissues are within normal limits. Atherosclerotic calcification is seen in the popliteal artery. IMPRESSION: No acute bony abnormality is identified. Electronically signed by: Marky Severino M.D. 05/27/2017 2:30 PM Dictated Date/Time: 05/27/2017 2:29 PM
--- NOTE | 2017-05-27 14:36 | DIAGNOSTIC IMAGING REPORT ---
R FINGER(S) MIN 2 VIEWS ROUTINE CLINICAL HISTORY: 81 years-old Male presenting with Trauma, right index finger pain. TECHNIQUE: Frontal and lateral views of the right second finger were obtained. COMPARISON: None. FINDINGS: Osteophytosis noted at the distal interphalangeal joint of the second finger though joint spaces preserved. No acute fracture or malalignment. Diffuse soft tissue swelling at the second finger may be present Degenerative changes also noted at the first carpometacarpal articulation. IMPRESSION: Degenerative changes. No convincing evidence of acute osseous injury. Electronically signed by: Maikol Garcia M.D. 05/27/2017 2:35 PM Dictated Date/Time: 05/27/2017 2:33 PM
== END | disposition home or self-care (01) ==
LOC: C.RAD1850 14:09
PROVIDERS: ATTEND Internal Medicine
DX: M79.644 Pain in right finger(s) (principal); S69.91XA Unspecified injury of right wrist, hand and finger(s), initial encounter; X58.XXXA Exposure to other specified factors, initial encounter; M25.562 Pain in left knee; M18.9 Osteoarthritis of first carpometacarpal joint, unspecified

== ENCOUNTER 2020-06-26 18:04 | Inpatient (IN) ==
[2020-06-26] MEDS ORDERED: SODIUM CHLORIDE 0.9% 1000ML 1,000 ML IV ONE ×2 (18:18→19:38)
[2020-06-26] MEDS ORDERED: cefTRIAXone SODIUM 1,000 MG/50 ML BAG IV STA (18:23)
--- NOTE | 2020-06-26 18:23 | Emergency Department Note ---
Impression & Plan Acute lower GI bleeding, Acute hypotension, Acute dehydration ED Provider Note NAME: NAOMI SOOD AGE: 84 SEX: M : 1935 ARRIVES VIA: Ambulance INFORMANT: Prehospital personnel and custodial documentation ED PROVIDER(S): James Pemberton DO CHIEF COMPLAINT: Altered mental status HPI: The patient is an 84-year-old male who has a longstanding history of Parkinson's and severe dementia who presented to the emergency department by ambulance. Reportedly the patient had 2 falls over the course the last 24 hours. He does only get around in a wheelchair and is not ambulatory normally. He was noted to have decreased mental status today and low blood pressure. He presented to the emergency department by ambulance. This was given history that was provided. The patient did not have a reported fever. There was no reported chest pain or significant deformity of the upper or lower extremities. The patient himself offers no complaints and does not answer questions at all. The patient reportedly had some facial injury noted. The patient received IV fluids by the pond sawyer prior to arrival because of severe hypotension. ROS: See above HPI for pertinent positives & negatives. A total of 10 systems reviewed and were otherwise negative. PAST MEDICAL HISTORY: See Below PAST SURGICAL HISTORY: See Below FAMILY HISTORY: See Below SOCIAL HISTORY: See Below HOME MEDICATIONS: See Below ALLERGIES: See Below VITALS: See Below PHYSICAL EXAMINATION: GENERAL: The patient is listless and slow to respond to stimuli. He does not answer to verbal commands. He does minimally localize loud and pressure stimuli. EYES: The conjunctivae are clear. The pupils are round and reactive. EARS, NOSE, MOUTH AND THROAT: The nose is without any evidence of any deformity. Mucous membranes are dry. NECK: The neck is nontender and supple. RESPIRATORY: Normal respiratory effort is noted there is no evidence of wheezing rhonchi or rales CARDIOVASCULAR: Regular rate and rhythm noted there no murmurs rubs or gallops normal S1 normal S2. GASTROINTESTINAL: The abdomen is soft and nondistended. There is left-sided tenderness to palpation but no guarding or rigidity. Rectal exam revealed brick colored stool that was strongly heme positive. MUSCULOSKELETAL/EXTREMITIES: There is no evidence of gross deformity full range of motion is noted in the hips and shoulders. SKIN: Skin was cool and dry. Pedal edema was noted bilaterally. There is an abrasion over the lower lip. There is ecchymosis over the ear. NEUROLOGIC: The patient does not answer questions. I am unable to assess orientation at this time. Patient has resting tremor in both upper and lower extremities. Musculature is rigid. MEDICAL DECISION MAKING: The patient is an 84-year-old male who presented to the emergency department for an evaluation of hypotension altered mental status and a fall. The patient was found to have signs of a significant lower GI bleed on physical exam. He was also hypotensive. The patient was treated with IV fluids IV albumin and DDAVP in the emergency department. He was reevaluated multiple times. I discussed the patient's laboratory and radiographic studies with his significant other. I also [facility] The patient is a DNR at this time. His significant other was agreeable to the above therapy but did not want him to have surgery or to be transferred. She was unsure if the patient should have blood products at this time he does not meet criteria for transfusion but he may if symptoms do not start to reverse. Triage Nursing notes reviewed. Prior medical records reviewed Vital Signs: reviewed and remarkable for hypotension. Differential diagnosis: Infection, hypoglycemia, electrolyte abnormalities, overdose, toxicologic, cardiac sources, intracerebral event, neurologic, trauma, as well as other pathologies. ER treatment provided: See below Diagnostics interpreted by me: ECG: EKG was obtained in the emergency department. My interpretation is normal sinus rhythm at 71 bpm. There is no ectopy. There is no acute ST segment abnormalities noted. This was compared to a tracing from June 222016. No significant changes were noted. Cardiac Monitoring: An order was placed for continuous cardiac monitoring. The monitor shows a rate of 80 bpm with sinus rhythm. Laboratory studies: As stated above and show below. Imaging studies: See below Consultation(s): I discussed this case with Dr. Reece who is [facility]. ED COURSE: Procedures: none PDMP:reviewed and no issues Critical Care: I have personally spent greater than 45 minutes of critical care time in the direct management of this patient. This includes bedside care, interpretation of diagnostic studies, and testing, discussion with consultants, patient, and family members, and other required patient management activities. This 45 minutes is in excess of all separately billable procedures. Past Med/Surg History Medical History (Updated 06/26/20 @ 20:11 by James Pemberton DO) DVT (deep venous thrombosis) Kidney stones Parkinson's disease SNHL (sensorineural hearing loss) Family History Other No pertinent family history Social History Smoking Status: Unknown if ever smoked Feels Safe at Home: Declines to Answer Allergies Allergies Allergy/AdvReac Type Severity Reaction Status Date / Time No Known Allergies Allergy Verified 06/26/20 18:46 Home Meds Home Medications Medication Instructions Recorded Confirmed atorvastatin 40 mg PO HS 01/19/18 06/26/20 carbidopa-levodopa 0.5 tab PO AMPM 01/19/18 06/26/20 escitalopram oxalate [Lexapro] 5 mg PO QAM 01/19/18 06/26/20 Med Pass 60 ml PO QID 06/26/20 06/26/20 Skin Prep Pads 1 applic TOPICAL HS 06/26/20 06/26/20 acetaminophen [Tylenol] 650 mg PO Q6H PRN MDD 3 GRAMS/06/26/20 06/26/20 HOURS aspirin 81 mg PO QAM 06/26/20 06/26/20 donepezil [Aricept] 5 mg PO QAM 06/26/20 06/26/20 finasteride 5 mg PO HS 06/26/20 06/26/20 lisinopril 2.5 mg PO QAM 06/26/20 06/26/20 lorazepam 0.5 mg PO .Q24HR PRN 06/26/20 06/26/20 lorazepam 0.5 mg PO HS 06/26/20 06/26/20 menthol-zinc oxide [Calmoseptine] 1 applic TOPICAL TID 06/26/20 06/26/20 triamcinolone acetonide 1 applic TOPICAL AMPM 06/26/20 06/26/20 Results & Data (ED) Vital Signs Vital Signs - 24 hr 06/26/20 19:39 Pulse Rate 71 Pulse Rhythm Regular Respiratory Rate 16 Respiratory Effort / Characteristics Non-Labored Respiratory Depth Normal Blood Pressure 87/38 L Blood Pressure Mean 54 Pulse Oximetry 98 Oxygen Delivery Method Room Air Sepsis Recent Fever Within 48 Hours No Sepsis New/Unexplained Change in Mental Status Yes Sepsis Action Taken by Nursing No Action Required Home Medications Current Medication List: was personally reviewed by me Laboratory Data Attestation: I reviewed the patient's lab results. Result diagrams: 06/26/20 18:40 06/26/20 18:40 Lab Results 06/26/20 06/26/20 06/26/20 Range/Units 18:30 18:40 18:40 WBC 15.39 H (4.8-10.8) K/uL RBC 4.35 L (4.7-6.1) M/uL Hgb 13.4 L (14.0-18.0) g/dL Hct 40.3 L (42-52) % MCV 92.6 (80-100) fL MCH 30.8 (25-34) pg MCHC 33.3 (32-36) g/dL RDW Std Deviation 47.3 H (36.4-46.3) fL RDW Coeff of Lenore 13.9 (11.5-14.5) % Plt Count 211 (130-400) K/uL MPV 11.6 H (7.4-10.4) fL Immature Gran % (Auto) 0.3 % Neut % (Auto) 88.3 % Lymph % (Auto) 5.1 % [place] % (Auto) 4.9 % Eos % (Auto) 1.3 % Baso % (Auto) 0.1 % Neut # (Auto) 13.59 H (1.4-6.5) K/uL Lymph # (Auto) 0.79 L (1.2-3.4) K/uL [place] # (Auto) 0.75 H (0.11-0.59) K/uL Eos # (Auto) 0.20 (0-0.5) K/uL Baso # (Auto) 0.02 (0-0.2) K/uL Immature Gran # (Auto) 0.04 H (0.00-0.02) K/uL Echinocytes 1+ PT (9.0-12.0) Seconds INR (0.9-1.1) APTT (21.0-31.0) Seconds PTT Ratio Sodium (136-145) mmol/L Potassium (3.5-5.1) mmol/L Chloride (98-107) mmol/L Carbon Dioxide (21-32) mmol/L Anion Gap (3-11) BUN (7-18) mg/dl Creatinine (0.6-1.4) mg/dl Est Cr Clr Drug Dosing Est GFR ( Amer) Est GFR (Non-Af Amer) BUN/Creatinine Ratio (10-20) Glucose (70-99) mg/dl Lactate (0.4-2.0) mmol/L Calcium (8.5-10.1) mg/dl Magnesium (1.8-2.4) mg/dl Total Bilirubin (0.2-1) mg/dl AST (15-37) U/L ALT (12-78) U/L Alkaline Phosphatase (45-117) U/L Troponin I (0-0.045) ng/ml Total Protein (6.4-8.2) gm/dl Albumin (3.4-5.0) gm/dl Globulin (2.5-4.0) gm/dl Albumin/Globulin Ratio (0.9-2) Procalcitonin (0-0.5) ng/ml Urine Color Yellow Urine Appearance Clear (Clear) Urine pH 7.0 (4.5-7.5) Ur Specific [place] 1.023 (1.000-1.030) Urine Protein 1+ H (Negative) Urine Glucose (UA) Negative (Negative) Urine Ketones Negative (Negative) Urine Blood Negative (Negative) Urine Nitrite Negative (Negative) Urine Bilirubin Negative (Negative) Urine Urobilinogen Negative (Negative) Ur Leukocyte Esterase Negative (Negative) Urine WBC (Auto) 0 (0-5) /hpf Urine RBC (Auto) 0-4 (0-4) /hpf U Hyaline Cast (Auto) 0 (0-5) /lpf U Epithel Cells (Auto) 10-20 H (0-5) /lpf Urine Bacteria (Auto) Negative (Negative) COVID-19 Eval Order Blood Type A Positive Antibody Screen NEGATIVE 06/26/20 06/26/20 06/26/20 Range/Units 18:40 18:40 18:40 WBC (4.8-10.8) K/uL RBC (4.7-6.1) M/uL Hgb (14.0-18.0) g/dL Hct (42-52) % MCV (80-100) fL MCH (25-34) pg MCHC (32-36) g/dL RDW Std Deviation (36.4-46.3) fL RDW Coeff of Lenore (11.5-14.5) % Plt Count (130-400) K/uL MPV (7.4-10.4) fL Immature Gran % (Auto) % Neut % (Auto) % Lymph % (Auto) % [place] % (Auto) % Eos % (Auto) % Baso % (Auto) % Neut # (Auto) (1.4-6.5) K/uL Lymph # (Auto) (1.2-3.4) K/uL [place] # (Auto) (0.11-0.59) K/uL Eos # (Auto) (0-0.5) K/uL Baso # (Auto) (0-0.2) K/uL Immature Gran # (Auto) (0.00-0.02) K/uL Echinocytes PT 10.8 (9.0-12.0) Seconds INR 1.1 (0.9-1.1) APTT 24.1 (21.0-31.0) Seconds PTT Ratio 0.9 Sodium 148 H (136-145) mmol/L Potassium 3.9 (3.5-5.1) mmol/L Chloride 114 H (98-107) mmol/L Carbon Dioxide 27 (21-32) mmol/L Anion Gap 7.0 (3-11) BUN 34 H (7-18) mg/dl Creatinine 1.12 (0.6-1.4) mg/dl Est Cr Clr Drug Dosing Not Reportable Est GFR ( Amer) 68.6 Est GFR (Non-Af Amer) 59.2 BUN/Creatinine Ratio 30.1 H (10-20) Glucose 174 H (70-99) mg/dl Lactate 3.1 H* (0.4-2.0) mmol/L Calcium 9.0 (8.5-10.1) mg/dl Magnesium 3.1 H (1.8-2.4) mg/dl Total Bilirubin 0.4 (0.2-1) mg/dl AST 28 (15-37) U/L ALT 12 (12-78) U/L Alkaline Phosphatase 45 (45-117) U/L Troponin I 0.022 (0-0.045) ng/ml Total Protein 6.4 (6.4-8.2) gm/dl Albumin 3.0 L (3.4-5.0) gm/dl Globulin 3.4 (2.5-4.0) gm/dl Albumin/Globulin Ratio 0.9 (0.9-2) Procalcitonin (0-0.5) ng/ml Urine Color Urine Appearance (Clear) Urine pH (4.5-7.5) Ur Specific [place] (1.000-1.030) Urine Protein (Negative) Urine Glucose (UA) (Negative) Urine Ketones (Negative) Urine Blood (Negative) Urine Nitrite (Negative) Urine Bilirubin (Negative) Urine Urobilinogen (Negative) Ur Leukocyte Esterase (Negative) Urine WBC (Auto) (0-5) /hpf Urine RBC (Auto) (0-4) /hpf U Hyaline Cast (Auto) (0-5) /lpf U Epithel Cells (Auto) (0-5) /lpf Urine Bacteria (Auto) (Negative) COVID-19 Eval Order Blood Type Antibody Screen 06/26/20 06/26/20 Range/Units 18:40 19:54 WBC (4.8-10.8) K/uL RBC (4.7-6.1) M/uL Hgb (14.0-18.0) g/dL Hct (42-52) % MCV (80-100) fL MCH (25-34) pg MCHC (32-36) g/dL RDW Std Deviation (36.4-46.3) fL RDW Coeff of Lenore (11.5-14.5) % Plt Count (130-400) K/uL MPV (7.4-10.4) fL Immature Gran % (Auto) % Neut % (Auto) % Lymph % (Auto) % [place] % (Auto) % Eos % (Auto) % Baso % (Auto) % Neut # (Auto) (1.4-6.5) K/uL Lymph # (Auto) (1.2-3.4) K/uL [place] # (Auto) (0.11-0.59) K/uL Eos # (Auto) (0-0.5) K/uL Baso # (Auto) (0-0.2) K/uL Immature Gran # (Auto) (0.00-0.02) K/uL Echinocytes PT (9.0-12.0) Seconds INR (0.9-1.1) APTT (21.0-31.0) Seconds PTT Ratio Sodium (136-145) mmol/L Potassium (3.5-5.1) mmol/L Chloride (98-107) mmol/L Carbon Dioxide (21-32) mmol/L Anion Gap (3-11) BUN (7-18) mg/dl Creatinine (0.6-1.4) mg/dl Est Cr Clr Drug Dosing Est GFR ( Amer) Est GFR (Non-Af Amer) BUN/Creatinine Ratio (10-20) Glucose (70-99) mg/dl Lactate (0.4-2.0) mmol/L Calcium (8.5-10.1) mg/dl Magnesium (1.8-2.4) mg/dl Total Bilirubin (0.2-1) mg/dl AST (15-37) U/L ALT (12-78) U/L Alkaline Phosphatase (45-117) U/L Troponin I (0-0.045) ng/ml Total Protein (6.4-8.2) gm/dl Albumin (3.4-5.0) gm/dl Globulin (2.5-4.0) gm/dl Albumin/Globulin Ratio (0.9-2) Procalcitonin 0.06 (0-0.5) ng/ml Urine Color Urine Appearance (Clear) Urine pH (4.5-7.5) Ur Specific [place] (1.000-1.030) Urine Protein (Negative) Urine Glucose (UA) (Negative) Urine Ketones (Negative) Urine Blood (Negative) Urine Nitrite (Negative) Urine Bilirubin (Negative) Urine Urobilinogen (Negative) Ur Leukocyte Esterase (Negative) Urine WBC (Auto) (0-5) /hpf Urine RBC (Auto) (0-4) /hpf U Hyaline Cast (Auto) (0-5) /lpf U Epithel Cells (Auto) (0-5) /lpf Urine Bacteria (Auto) (Negative) COVID-19 Eval Order [facility]sv at [facility] Blood Type Antibody Screen Administered Medications Albumin Human (Albumin 25%) 12.5 gm in 50 mls @ 50 mls/hr IV Q1H STA Stop: 06/26/20 20:54 Last Admin: 04/26/21 20:05 Dose: 50 mls/hr Documented by: [id number] Discontinued Medications Sodium Chloride (Nss 1000ml) 1,000 mls @ 999 mls/hr IV .Q1H1M ONE Stop: 06/26/20 19:18 Last Infusion: 06/26/20 20:30 Dose: 0 mls/hr Documented by: [id number] Admin: 06/26/20 19:50 Dose: 999 mls/hr Documented by: [id number] Ceftriaxone Sodium (Rocephin) 1,000 mg in 50 mls @ 100 mls/hr IV NOW STA Stop: 06/26/20 18:52 Last Admin: 06/26/20 20:31 Dose: 100 mls/hr Documented by: [id number] Sodium Chloride (Nss 1000ml) 1,000 mls @ 999 mls/hr IV .Q1H1M ONE Stop: 06/26/20 20:38 Last Infusion: 06/26/20 20:30 Dose: 0 mls/hr Documented by: [id number] Admin: 06/26/20 19:51 Dose: 999 mls/hr Documented by: [id number] Desmopressin Acetate 15 mcg/ (Sodium Chloride) 53.75 mls @ 107.5 mls/hr IV NOW STA Stop: 06/26/20 20:36 Last Admin: 06/26/20 20:31 Dose: 107.5 mls/hr Documented by: [id number] Imaging Data Radiologist's Impression: Abdomen/Pelvis CT 06/26/20 18:[address] WITHOUT CONTRAST CT DOSE: 2090.96 mGy.cm HISTORY: Acute abdominal trauma status post fall fall, GIB TECHNIQUE: Multiaxial CT images of the abdomen and pelvis were performed without contrast. A dose lowering technique was utilized adhering to the principles of ALARA. COMPARISON STUDY: CT abdomen and pelvis 01/19/2018, 09/02/2017. FINDINGS: Limited exam secondary to positioning of the patient and lack of contrast with respiratory motion artifact. Coronary artery calcifications. Trace pericardial effusion. Clear lung bases. No pneumatosis or pneumoperitoneum. The unenhanced spleen is diminutive. Unremarkable pancreas, adrenal glands and gallbladder. Coarse calcifications of the right hepatic lobe. Hypodensities of the bilateral kidneys redemonstrated suggestive of probable cysts. Punctate nonobstructing calculus of the inferior pole right kidney. No hydronephrosis. The bladder wall thickening with partial distention. Prostamegaly. Phleboliths of the pelvis. Extensive calcified plaque of the abdominal aorta. No adenopathy. Small hiatal hernia. Air and fluid-filled distended stomach. Trace abdominal pelvic ascites. Moderate to extensive fecal retention of the rectum. Mild associated rectal wall thickening. Air-fluid levels throughout the large and small bowel. Nonvisualization of the appendix. Tiny fat filled periumbilical hernia. Degenerative changes of the spine, pelvis and hips. Numerous tiny sclerotic foci of the vertebral bodies and pelvis are redemonstrated and appears similar to the 2018 studies. No destructive osseous lesions are seen. IMPRESSION: 1. Limited exam as above. 2. No acute posttraumatic intra-abdominal or intrapelvic abnormality. No acute fracture. 3. Moderate to extensive fecal retention of the rectum with associated rectal wall thickening and perirectal edema suggestive of stercoral proctitis. 4. No bowel obstruction. 5. Numerous tiny osseous sclerotic foci redemonstrated, most pronounced in the pelvis which appears similar to the 2018 study is. Follow-up nonemergent bone scan is recommended to further evaluate. ACT 112: Negative or not required by law. The above report was generated using voice recognition software. It may contain grammatical, syntax or spelling errors. Electronically signed by: Emer Larsen M.D. 06/26/2020 8:[address] 06/26/20 18:16 CT cervical spine wo con CLINICAL HISTORY: 84 years-old Male with fall. Acute head and neck injury status post fall COMPARISON: Head CT of same day TECHNIQUE: Multiple axial CT images of the cervical spine were obtained without contrast. A dose lowering technique was utilized adhering to the principles of ALARA. FINDINGS: Demineralized appearance of the bones. 3 mm anterolisthesis C7 on T1, likely associated with degenerative bony facet fusion. Mostly moderate multilev el intervertebral disc space narrowing with mild to moderate spondylitic spurring and severe facet arthrosis. 6 mm likely benign lucent focus of the C4 vertebral body. No acute fracture or subluxation. Multilevel neuroforaminal narrowing. No pneumothorax. 4 mm solid nodule of the left lung apex, image 83. No prevertebral edema. Calcified plaque of the carotid bulbs. Heterogeneous thyroid. IMPRESSION: No acute fracture or subluxation. ACT 112: Negative or not required by law. The above report was generated using voice recognition software. It may contain grammatical, syntax or spelling errors. Electronically signed by: Emre Larsen M.D. 06/26/2020 8:10 PM Chest X-Ray 06/26/20 18:16 XR chest 1V portable HISTORY: 84 years-old Male SEPSIS acute sepsis COMPARISON: Chest radiograph 09/02/2017 TECHNIQUE: Portable AP view the chest FINDINGS: Cardiomediastinal and hilar silhouettes are within normal limits. Calcified plaque of the thoracic aorta. No pneumothorax, pleural effusion, airspace consolidation or overt pulmonary edema. Subcentimeter calcified granuloma of the lateral left midlung. Degenerative changes of the shoulders and spine. IMPRESSION: No acute process. ACT 112: Negative or not required by law. The above report was generated using voice recognition software. It may contain grammatical, syntax or spelling errors. Electronically signed by: Emre Larsen M.D. 06/26/2020 7:[address] 06/26/20 18:16 CT head/brain wo con CLINICAL HISTORY: 84 years-old Male with fall. Acute head and neck injury status post fall TECHNIQUE: Multiple axial CT images of the head were obtained without contrast. A dose lowering technique was utilized adhering to the principles of ALARA. COMPARISON: CT cervical spine of same day, head CT 03/01/2016 FINDINGS: No acute intracranial hemorrhage, midline shift, intracranial mass, hydrocephalus, territorial ischemia or abnormal extra-axial collection. Age- related involutional changes with ex vacuo ventriculomegaly. Cerebral vascular calcifications. Streak artifact from dental amalgam hardware. The calvarium is intact. Minimal mucosal thickening of the left sphenoid sinus. Prior bilateral lens repair. Mastoid air cells are clear. IMPRESSION: No acute intracranial abnormality or calvarial fracture. ACT 112: Negative or not required by law. The above report was generated using voice recognition software. It may contain grammatical, syntax or spelling errors. Electronically signed by: Emre Larsen M.D. 06/26/2020 7:59 PM Discharge Plan Visit Data Chief Complaint: Respiratory Problems Stated Complaint: FALL, LETHARGIC ED Provider: James Pemberton Discharge Problem: Acute lower GI bleeding, Acute hypotension, Acute dehydration Patient Disposition: Being Evaluated by Hospitalist Condition: Good Forms Stand Alone Forms: My [facility] Prescriptions Prescriptions: No Action atorvastatin 40 mg tablet 40 mg PO HS RF: 0 carbidopa-levodopa 25-100 mg tablet 0.5 tab PO AMPM RF: 0 escitalopram oxalate [Lexapro] 5 mg Tablet 5 mg PO QAM RF: 0 acetaminophen [Tylenol] 325 mg Tablet 650 mg PO Q6H MDD 3 GRAMS/24 HOURS PRN (Reason: FEVER >100/PAIN) RF: 0 donepezil [Aricept] 5 mg Tablet 5 mg PO QAM RF: 0 triamcinolone acetonide 0.1 % Cream 1 applic TOPICAL AMPM RF: 0 lorazepam 0.5 mg Tablet 0.5 mg PO .Q24HR PRN (Reason: Anxiety) RF: 0 lorazepam 0.5 mg Tablet 0.5 mg PO HS RF: 0 aspirin 81 mg Tablet,Chewable 81 mg PO QAM RF: 0 lisinopril 2.5 mg Tablet 2.5 mg PO QAM RF: 0 Calmoseptine 0.44-20.6 % Ointment 1 applic TOPICAL TID RF: 0 Med Pass 60 ml PO QID RF: 0 Skin Prep Pads 1 applic topical HS RF: 0 finasteride 5 mg tablet 5 mg PO HS RF: 0 Referrals Referrals: Gerber Greer MD [Primary Care Provider] -
[2020-06-26 18:56] LABS: Hematocrit (blood only) 40.3 % (42-52); Hemoglobin 13.4 g/dL (14.0-18.0); Mean Corpuscular Hemoglobin 30.8 pg (25-34); Mean Corpuscular Hgb Conc 33.3 g/dL (32-36); Mean Corpuscular Volume 92.6 fL (80-100); Mean Platelet Volume 11.6 fL (7.4-10.4); Platelet Count 211 K/uL (130-400); RDW Coefficient of Variation 13.9 % (11.5-14.5); RDW Standard Deviation 47.3 fL (36.4-46.3); Red Blood Count 4.35 M/uL (4.7-6.1); White Blood Count 15.39 K/uL (4.8-10.8)
[2020-06-26 19:06] LABS: INR 1.1 (0.9-1.1); Partial Thromboplastin Ratio 0.9; Partial Thromboplastin Time 24.1 Seconds (21.0-31.0); Prothrombin Time 10.8 Seconds (9.0-12.0)
[2020-06-26 19:14] LABS: Alanine Aminotransferase 12 U/L (12-78); Aspartate Aminotransferase 28 U/L (15-37); BUN Creatinine Ratio 30.1 (10-20); Blood Urea Nitrogen 34 mg/dl (7-18); Carbon Dioxide 27 mmol/L (21-32); Chloride 114 mmol/L (98-107); Est GFR (African American) 68.6; Est GFR (Non-African American) 59.2; Glucose 174 mg/dl (70-99); Magnesium 3.1 mg/dl (1.8-2.4); Potassium 3.9 mmol/L (3.5-5.1); Sodium 148 mmol/L (136-145)
[2020-06-26 19:16] LABS: Appearance Urine Clear (Clear); Bacteria Urine Automated Negative (Negative); Bilirubin Urine Negative (Negative); Blood Urine Negative (Negative); Cast Urine Automated 0 /lpf (0-5); Color Urine Yellow; Glucose Urine UA Negative (Negative); Ketones Urine Negative (Negative); Leukocyte Esterase Urine Negative (Negative); Nitrite Urine Negative (Negative); Protein Urine 1+ (Negative); RBC Urine Automated 0-4 /hpf (0-4); Specific Gravity Urine 1.023 (1.000-1.030); Urobilinogen Urine Negative (Negative); WBC Urine Automated 0 /hpf (0-5)
[2020-06-26 19:19] LABS: Albumin Globulin Ratio 0.9 (0.9-2); Alkaline Phosphatase 45 U/L (45-117); Bilirubin,Total 0.4 mg/dl (0.2-1); Globulin 3.4 gm/dl (2.5-4.0); Total Protein 6.4 gm/dl (6.4-8.2); Troponin I 0.022 ng/ml (0-0.045)
--- NOTE | 2020-06-26 19:20 | XRay Report ---
XR chest 1V portable HISTORY: 84 years-old Male SEPSIS acute sepsis COMPARISON: Chest radiograph 09/02/2017 TECHNIQUE: Portable AP view the chest FINDINGS: Cardiomediastinal and hilar silhouettes are within normal limits. Calcified plaque of the thoracic ao rta. No pneumothorax, pleural effusion, airspace consolidation or overt pulmonary edema. Subcentimete r calcified granuloma of the lateral left midlung. Degenerative changes of the shoulders and spine. IMPRESSION: No acute process. ACT 112: Negative or not required by law. The above report was generated using voice recognition software. It may contain grammatical, syntax o r spelling errors. Electronically signed by: Emre Larsen M.D. 06/26/2020 7:19 PM
[2020-06-26 19:24] LABS: Basophils # (auto) 0.02 K/uL (0-0.2); Basophils % (auto) 0.1 %; Echinocytes 1+; Eosinophils % (auto) 1.3 %; Immature Granulocytes # (auto) 0.04 K/uL (0.00-0.02); Immature Granulocytes % (auto) 0.3 %; Lymphocytes # (auto) 0.79 K/uL (1.2-3.4); Lymphocytes % (auto) 5.1 %; Monocytes # (auto) 0.75 K/uL (0.11-0.59); Monocytes % (auto) 4.9 %; Neutrophils # (auto) 13.59 K/uL (1.4-6.5); Neutrophils % (auto) 88.3 %
[2020-06-26] MEDS ORDERED: ALBUMIN 25% 12.5 GM/50 ML VIAL IV STA (19:55)
--- NOTE | 2020-06-26 20:01 | CT Scan Report ---
CT head/brain wo con CLINICAL HISTORY: 84 years-old Male with fall. Acute head and neck injury status post fall TECHNIQUE: Multiple axial CT images of the head were obtained without contrast. A dose lowering tech nique was utilized adhering to the principles of ALARA. COMPARISON: CT cervical spine of same day, head CT 03/01/2016 FINDINGS: No acute intracranial hemorrhage, midline shift, intracranial mass, hydrocephalus, territorial ischem ia or abnormal extra-axial collection. Age-related involutional changes with ex vacuo ventriculomegal y. Cerebral vascular calcifications. Streak artifact from dental amalgam hardware. The calvarium is intact. Minimal mucosal thickening of the left sphenoid sinus. Prior bilateral lens repair. Mastoid air cells are clear. IMPRESSION: No acute intracranial abnormality or calvarial fracture. ACT 112: Negative or not required by law. The above report was generated using voice recognition software. It may contain grammatical, syntax o r spelling errors. Electronically signed by: Emre Larsen M.D. 06/26/2020 7:59 PM
[2020-06-26] MEDS ORDERED: DESMOPRESSIN ACETATE 15 MCG in SODIUM CHLORIDE 0.9% 50 ML IV STA (20:07)
--- NOTE | 2020-06-26 20:11 | CT Scan Report ---
CT cervical spine wo con CLINICAL HISTORY: 84 years-old Male with fall. Acute head and neck injury status post fall COMPARISON: Head CT of same day TECHNIQUE: Multiple axial CT images of the cervical spine were obtained without contrast. A dose low ering technique was utilized adhering to the principles of ALARA. FINDINGS: Demineralized appearance of the bones. 3 mm anterolisthesis C7 on T1, likely associated wit h degenerative bony facet fusion. Mostly moderate multilevel intervertebral disc space narrowing with mild to moderate spondylitic spurring and severe facet arthrosis. 6 mm likely benign lucent focus of the C4 vertebral body. No acute fracture or subluxation. Multilevel neuroforaminal narrowing. No pneumothorax. 4 mm solid nodule of the left lung apex, image 83. No prevertebral edema. Calcified plaque of the carotid bulbs. Heterogeneous thyroid. IMPRESSION: No acute fracture or subluxation. ACT 112: Negative or not required by law. The above report was generated using voice recognition software. It may contain grammatical, syntax o r spelling errors. Electronically signed by: Emre Larsen M.D. 06/26/2020 8:10 PM
--- NOTE | 2020-06-26 20:26 | CT Scan Report ---
ABDOMEN AND PELVIS CT WITHOUT CONTRAST CT DOSE: 2090.96 mGy.cm HISTORY: Acute abdominal trauma status post fall fall, GIB TECHNIQUE: Multiaxial CT images of the abdomen and pelvis were performed without contrast. A dose lo wering technique was utilized adhering to the principles of ALARA. COMPARISON STUDY: CT abdomen and pelvis 01/19/2018, 09/02/2017. FINDINGS: Limited exam secondary to positioning of the patient and lack of contrast with respiratory motion artifact. Coronary artery calcifications. Trace pericardial effusion. Clear lung bases. No pne umatosis or pneumoperitoneum. The unenhanced spleen is diminutive. Unremarkable pancreas, adrenal gla nds and gallbladder. Coarse calcifications of the right hepatic lobe. Hypodensities of the bilateral kidneys redemonstrated suggestive of probable cysts. Punctate nonobstr ucting calculus of the inferior pole right kidney. No hydronephrosis. The bladder wall thickening wit h partial distention. Prostamegaly. Phleboliths of the pelvis. Extensive calcified plaque of the abdo miriam aorta. No adenopathy. Small hiatal hernia. Air and fluid-filled distended stomach. Trace abdominal pelvic ascites. Moderate to extensive fecal retention of the rectum. Mild associated rectal wall thickening. Air-fluid levels throughout the large and small bowel. Nonvisualization of the appendix. Tiny fat filled periumbilica l hernia. Degenerative changes of the spine, pelvis and hips. Numerous tiny sclerotic foci of the latisha tebral bodies and pelvis are redemonstrated and appears similar to the 2018 studies. No destructive o sseous lesions are seen. IMPRESSION: 1. Limited exam as above. 2. No acute posttraumatic intra-abdominal or intrapelvic abnormality. No acute fracture. 3. Moderate to extensive fecal retention of the rectum with associated rectal wall thickening and per irectal edema suggestive of stercoral proctitis. 4. No bowel obstruction. 5. Numerous tiny osseous sclerotic foci redemonstrated, most pronounced in the pelvis which appears s imilar to the 2018 study is. Follow-up nonemergent bone scan is recommended to further evaluate. ACT 112: Negative or not required by law. The above report was generated using voice recognition software. It may contain grammatical, syntax o r spelling errors. Electronically signed by: Emre Larsen M.D. 06/26/2020 8:24 PM
[2020-06-26] MEDS ORDERED: SODIUM CHLORIDE 0.9% 1000ML 1,000 ML IV SCH (20:30)
[2020-06-26] MEDS ORDERED: SODIUM CHLORIDE 0.9% 1000ML 1,000 ML IV STA (20:30)
--- NOTE | 2020-06-26 20:30 | History & Physical Report ---
Date of Service June 26, 2020 Assessment & Plan (1) Acute lower GI bleedin yo M PMHx CAD, Parkinson's disease with severe dementia admitted for acute LGIB. Acute LGIB: Presented with lethargy, found to have blood in rectum and has had several bloody BMs while in ER. Hgb 13.4 on admission, however with hemodynamic instability. CTAP shows moderate to extensive fecal retention of the rectum with associated rectal wall thickening and perirectal edema suggestive of stercoral proctitis. Patient is DNR/DNI and no heroic measures, scopes, pressors per . She is amenable to IVF, supportive care, and 1u PRBCs. Given cannot rule out upper component as well, will bolus pantoprazole and then PPI BID. Will attempt volume repletion with 1u PRBCs, DDAVP for Plavix reversal, and 3L NSS. Repeat H/H once 1u PBRCs completed. Consider Palliative Care if patient without stabilization. No GI consult placed given no scopes per . CAD: History of, currently NPO for LGIB. DDAVP given for Plavix reversal. Parkinsonian dementia: History of, is primary decision maker and currently resides at [facility]. NPO for now given GIB. Code Status: DNR/DNI FEN: NPO DVT ppx: contraindicated in setting of acute LGIB Dispo: PCU; suspect either stabilization with IVF, PRBCs, and DDAVP, or pr oceeding with Palliative Care option based on improvement through the night (2) Acute hypotension: (3) CAD (coronary artery disease): History of Present Illness Chief Complaint: lethargy, AMS Primary Care Provider: Gerber Greer MD 84 yo M PMHx CAD, Parkinson's disease with severe dementia presents with from [facility] for AMS and lethargy. Patient is unable to give history due to lethargy/obtundation. Per , [facility] made her aware that he has had a few falls over the last few days but that he was alert following and was ambulatory. At his baseline, patient is alert but with severe dementia. He has been at [facility] for about 2 weeks. Today the was called and found out that he was not very responsive to [facility] staff, and so he was sent via ambulance to [facility]. In the ER patient was found to have Hgb 13.4, hypotension to systolic 80s, elevated BUN, brick red stool (hemoccult positive). CT Head showed no acute intracranial abnormality or calvarial fracture. CTAP showed moderate to extensive fecal retention of the rectum with associated rectal wall thickening and perirectal edema suggestive of stercoral proctitis. Hospitalist service consulted for admission for acute LGIB. reports that patient is DNR/DNI, and would not want any heroic measures, scopes, etc; though he would be amenable to a trial of blood products. She and her daughters have had many conversations about his age and illnesses, and are most concerned with his comfort above all else. Allergies Allergy/AdvReac Type Severity Reaction Status Date / Time No Known Allergies Allergy Verified 06/26/20 18:46 Home Medications Medication Instructions Recorded Confirmed Type atorvastatin 40 mg PO HS 01/19/18 06/26/20 History carbidopa-levodopa 0.5 tab PO AMPM 01/19/18 06/26/20 History escitalopram oxalate [Lexapro] 5 mg PO QAM 01/19/18 06/26/20 History Med Pass 60 ml PO QID 06/26/20 06/26/20 History Skin Prep Pads 1 applic TOPICAL HS 06/26/20 06/26/20 History acetaminophen [Tylenol] 650 mg PO Q6H PRN MDD 3 GRAMS/06/26/20 06/26/20 History HOURS aspirin 81 mg PO QAM 06/26/20 06/26/20 History donepezil [Aricept] 5 mg PO QAM 06/26/20 06/26/20 History finasteride 5 mg PO HS 06/26/20 06/26/20 History lisinopril 2.5 mg PO QAM 06/26/20 06/26/20 History lorazepam 0.5 mg PO .Q24HR PRN 06/26/20 06/26/20 History lorazepam 0.5 mg PO HS 06/26/20 06/26/20 History menthol-zinc oxide [Calmoseptine] 1 applic TOPICAL TID 06/26/20 06/26/20 History triamcinolone acetonide 1 applic TOPICAL AMPM 06/26/20 06/26/20 History Past Med/Surg History Medical History DVT (deep venous thrombosis) Kidney stones Parkinson's disease SNHL (sensorineural hearing loss) Family History Other No pertinent family history Social History Smoking Status: Former smoker Hx Alcohol Use: Yes Alcohol type: beer Hx Substance Use: No Communication Ability: Impaired Communication Ability Comment: Baseline no communication impairment (Changed this afternoon) [employer] Required: No Beliefs That Will Affect Care: None Current Living Situation: Other Current Living Situation Comment: [facility] Other Information That Helps Us Care for You: No Feels Safe at Home: Declines to Answer Assistive Devices: Oxygen - Continuous Review of Systems Review of Systems: Unobtainable due to cognitive status Gastrointestinal: + blood in stools Neurologic: + falls Physical Exam Constitutional: WD/WN, vitals as above Eyes: PERRL, conjunctivae normal, anicteric sclerae ENMT: external ear and nose normal, oropharynx normal Neck: normal visual inspection Respiratory: normal respiratory effort, lungs clear to auscultation Cardiovascular: RRR, no murmur, no edema Gastrointestinal (Abdomen): soft abdomen, hyperactive bowel sounds Musculoskeletal: no cyanosis or clubbing, extremities motor strength 5/5 Skin: no rashes ecchymosis noted in right ear Neurologic: + obtunded (does not answer verbal commands) tremor noted Psychiatric: Orientation: + not alert Results & Data Results & Data ([facility]) Vital Signs (Past 12 Hours) Vital Signs Pulse Resp BP Pulse Ox 06/26/20 19:39 71 16 87/38 L 98 Code Status & VTE Plan VTE Prophylaxis Plan VTE Prophylaxis will be ordered: No Supervising Physician Co-Signing Physician Notes Attending addendum: I have physically seen this patient, have supervised the medical residents activities, and agree with the H&P unless as otherwise noted. Assessment and Plan: Radiation proctitis/associated lower GI bleeding- The patient will be admitted to telemetry for serial cardiac enzymes, serial EKG's, cardiac rhythm monitoring DDAVP 0.3 mics per kilogram IV x1 Transfuse 1 unit PRBCs due to continued bleeding in the ED Receiving 3 L normal saline in the ED Patient will be DNR/DNI, with no further escalation in treatment and/or further diagnosis, such as GI consult, as requests CAD/hypertension- N.p.o. DDAVP to reverse aspirin and Plavix Parkinson's dementia- is POA and primary decision maker. Remaining orders and notations as noted Resident Activity Tracking Resident Involvement: Resident Care Provided Care Provided: Adult Hospital Medicine (1) CAD (coronary artery disease) Associated angina: unspecified whether angina present Coronary Disease-A ssociated Artery/Lesion type: [place] artery [place] vs. transplanted heart: [place] heart Qualified Code(s): I25.10 - Atherosclerotic heart disease of [place] coronary artery without angina pectoris
[2020-06-26] MEDS: ALBUMIN 25% 12.5 GM/50 ML VIAL IV SCH ×2 (21:00→22:12)
[2020-06-26] MEDS ORDERED: SODIUM CHLORIDE 0.9% 250 ML IV PRN (21:14)
[2020-06-26 21:33] LABS: Influenza A virus by PCR Negative (Neg); Influenza B virus by PCR Negative (Neg); RSV by PCR Negative (Neg); SARS CoV2 RNA(COVID-19) InHosp NEGATIVE (Negative)
[2020-06-26] MEDS ORDERED: ONDANSETRON INJ 2 MG/ML 2 ML VIAL IV STA (21:52)
[2020-06-26] MEDS ORDERED: PIPERACILL/TAZOBAC CONSULT ACTIVE PRN (22:01)
[2020-06-26] MEDS ORDERED: ONDANSETRON INJ 2 MG/ML 2 ML VIAL IV PRN (22:01)
[2020-06-26] MEDS: PIPERACILLIN/TAZOBACTAM 3.375 GM in DEXTROSE 5% 100 ML IV SCH (23:43)
[2020-06-26] MEDS: PANTOprazole 40 MG in SYRINGE 0 ML IV SCH (23:43)
[2020-06-27] MEDS ORDERED: PANTOprazole 80 MG in DEXTROSE 5% 100 ML IV STA (00:21)
[2020-06-27 03:34] LABS: Hemoglobin 12.7 g/dL (14.0-18.0)
[2020-06-27] MEDS: PIPERACILLIN/TAZOBACTAM 3.375 GM in DEXTROSE 5% 100 ML IV SCH ×3 (06:19→22:38)
--- NOTE | 2020-06-27 07:25 | Hospitalist Progress Note ---
Date of Service June 27, 2020 Assessment & Plan (1) Acute lower GI bleedin yo M PMHx CAD, Parkinson's disease with severe dementia admitted for acute LGIB. Acute LGIB: Presented with lethargy, found to have blood in rectum and has had several bloody BMs while in ER. Hgb 13.4 on admission, only down slightly to 12.7 today CTAP shows moderate to extensive fecal retention of the rectum with associated rectal wall thickening and perirectal edema suggestive of stercoral proctitis. Patient is DNR/DNI and no heroic measures, scopes, pressors per . She is amenable to IVF, supportive care, and PRBCs. allow him to have a diet but not eating or drinking safely, cannot take PO medications continue D5W 1/2 NSS at 80cc/hr continue Protonix, zosyn for colitis could not disimpact him on exam today, stool is too high up try Miralax if he would take it, doubt that enema or suppository would help consult palliative care to discuss goals of care his is clear that she does not want procedures or aggressive care (2) Acute hypotension: sepsis, responded well to IV fluids, no PRBC needed BP 100's sytolic this morning (3) CAD (coronary artery disease): (4) Fecal impaction: could not manually disimpact today on exam, stool too high in rectum/sigmoid try Miralax q6 but he won't take PO liquid brown stool around the impacted stool, no blood he cannot follow commands, would not hold in an enema (5) Colitis: continue Zosyn, IV fluids (6) BPH NOS w ur obs/LUTS: chu catheter in place (7) Dementia: has been at [facility] for 2 weeks, prior to that was living with his at baseline he is non-verbal was more ambulatory prior to going to [facility], has fallen a few times the past two weeks (8) Parkinson's disease: advanced with dementia, declining quality of life, cannot complete ADLs consult palliative care Admission and Anticipated Discharge Date Admission Date: June 26, 2020 Subjective patient laying in bed, no distress, he is non-verbal which is his baseline reviewed chart, reviewed labs, Hb is stable, WBC elevated reviewed CT of the a/p, large amount of stool, fecal impaction performed a rectal exam with RN, liquid brown stool, no stool could be felt on exam can try some Miralax but not sure he will be able to safely take PO called his to discuss situation, she said she had to admit him to [facility] two weeks ago because they could not care for him at home she says he has not done well there, he has fallen several times, has been confused she said that prior to going there he would take his medications crushed with applesauce or pudding, he would eat and drink, he was moving his bowels she confirmed that she does not want any scopes or aggressive care, Okay with IV fluids and IV antibiotics discussed that we will try to get him to move his bowels but he is very impacted on scans she understands will involve palliative care in his case Review of Systems Review of Systems: Unobtainable due to cognitive status Physical Exam Constitutional: well developed, + thin, + cachectic and + frail appearing; no acute distress Neck: trachea midline, no thyromegaly Respiratory: normal respiratory effort, lungs clear to auscultation Cardiovascular: RRR, no murmur, no edema Gastrointestinal (Abdomen): Inspection/Auscultation: abdomen normal to inspection and normal bowel sounds; abdomen not distended Percussion/Palpat ion: abdomen soft; abdomen nontender Rectal Exam: + fecal impaction (liquid brown stool in rectum) Musculoskeletal: Head/Neck/Chest: normocephalic, head atraumatic and neck supple Extremities: + abnormal strength (general weakness); no cyanosis, no clubbing and no petechiae Neurologic: CN's II-XI intact bilaterally, moves all extremities and awake; no focal motor deficits Motor/Sensory: + abnormal movement (rigidity) Psychiatric: Orientation: alert (eyes open, non verbal); + not oriented x 3 Lymphatic: no cervical or axillary lymphadenopathy Results & Data Results & Data ([facility]) Vital Signs (Past 12 Hours) Vital Signs Temp Pulse Pulse Resp BP BP Pulse Ox 06/27/20 06:00 95 H 18 96 06/27/20 05:11 92 H 19 119/55 L 100 06/27/20 04:18 36.4 C L 06/27/20 04:11 92 H 21 111/53 L 99 06/27/20 03:10 91 H 16 111/58 L 100 06/27/20 02:10 89 20 108/55 L 100 06/27/20 02:02 36.6 C 90 21 107/54 L 100 06/27/20 01:11 92 H 19 109/53 L 100 06/27/20 00:57 36.7 C 96 H 16 133/86 100 06/27/20 00:32 36.6 C 84 18 133/68 100 06/27/20 00:12 95 H 21 99 06/27/20 00:10 104 H 23 133/68 99 06/26/20 23:55 93 H 23 116/53 L 97 06/26/20 23:50 92 H 23 100/52 L 98 06/26/20 23:45 87 21 99/51 L 100 06/26/20 23:40 91 H 20 105/56 L 98 06/26/20 23:35 86 22 94/50 L 98 06/26/20 23:30 90 23 114/54 L 97 06/26/20 23:25 98 H 23 141/72 H 96 06/26/20 23:22 36.6 C 86 20 100/52 L 99 06/26/20 23:20 91 H 21 121/54 L 95 06/26/20 23:15 36.3 C L 95 H 21 130/62 97 06/26/20 23:10 96 H 19 107/52 L 95 06/26/20 23:05 90 17 96/52 L 95 06/26/20 23:00 89 19 104/52 L 95 06/26/20 22:55 88 20 111/50 L 97 06/26/20 22:52 104/52 L 06/26/20 22:51 95 H 17 95/47 L 99 06/26/20 22:45 91 H 18 102/55 L 97 06/26/20 22:41 89 18 74/51 L 96 06/26/20 22:40 89 19 96 06/26/20 22:37 90 17 102/55 L 98 06/26/20 22:36 89 21 104/69 98 06/26/20 22:35 89 21 104/69 98 06/26/20 22:31 88 21 99/56 L 97 06/26/20 22:25 85 20 80/52 L 96 06/26/20 22:20 87 19 89/47 L 95 06/26/20 22:18 36.6 C 86 20 80/41 L 95 06/26/20 22:15 82 82 20 80/41 L 60/41 L 92 06/26/20 22:10 79 21 63/36 L 90 06/26/20 22:05 83 24 61/34 L 91 06/26/20 22:04 81 26 H 64/34 L 90 06/26/20 22:00 87 20 87 L 06/26/20 21:55 86 28 H 91/42 L 84 L 06/26/20 21:51 90 20 101/49 L 80 L 06/26/20 21:47 82 22 101/53 L 100 06/26/20 21:45 86 15 101/53 L 100 06/26/20 21:40 86 17 95/53 L 100 06/26/20 21:35 88 15 111/54 L 100 06/26/20 21:30 88 15 95/47 L 98 06/26/20 21:25 92 H 16 126/53 L 100 06/26/20 21:21 94 H 15 117/67 100 06/26/20 21:20 93 H 22 100 06/26/20 21:15 95 H 17 120/61 100 06/26/20 21:06 92 H 15 139/72 99 06/26/20 21:00 92 H 15 108/58 L 100 06/26/20 20:55 86 15 109/55 L 99 06/26/20 20:51 87 15 108/57 L 100 06/26/20 20:46 97 H 15 115/49 L 99 06/26/20 20:40 88 20 93/60 L 99 06/26/20 20:36 90 17 84/70 L 98 06/26/20 20:31 86 16 104/82 98 06/26/20 20:26 87 17 80/62 L 99 06/26/20 20:22 83 17 98/48 L 98 06/26/20 20:20 87 16 98 06/26/20 20:15 94 H 16 83/64 L 99 06/26/20 20:11 83 16 95/51 L 99 06/26/20 20:06 80 14 92/62 L 100 06/26/20 20:00 74 16 110/54 L 100 06/26/20 19:57 76 19 103/53 L 98 06/26/20 19:51 75 20 89/29 L 98 06/26/20 19:47 72 16 72/43 L 95 06/26/20 19:45 74 16 67/38 L 66 L 06/26/20 19:42 75 15 58/36 L 73 L 06/26/20 19:40 74 16 06/26/20 19:39 71 16 87/38 L 98 06/26/20 19:37 75 16 69/35 L Laboratory Results Laboratory Results - last 24 hr 06/26/20 06/26/20 06/26/20 18:30 18:40 18:40 WBC 15.39 H RBC 4.35 L Hgb 13.4 L Hct 40.3 L MCV 92.6 MCH 30.8 MCHC 33.3 RDW Std Deviation 47.3 H RDW Coeff of Len[place] 13.9 Plt Count 211 MPV 11.6 H Immature Gran % (Auto) 0.3 Neut % (Auto) 88.3 Lymph % (Auto) 5.1 [place] % (Auto) 4.9 Eos % (Auto) 1.3 Baso % (Auto) 0.1 Neut # (Auto) 13.59 H Lymph # (Auto) 0.79 L [place] # (Auto) 0.75 H Eos # (Auto) 0.20 Baso # (Auto) 0.02 Immature Gran # (Auto) 0.04 H Echinocytes 1+ PT INR APTT PTT Ratio Sodium Potassium Chloride Carbon Dioxide Anion Gap BUN Creatinine Est Cr Clr Drug Dosing Est GFR ( Amer) Est GFR (Non-Af Amer) BUN/Creatinine Ratio Glucose Lactate Calcium Magnesium Total Bilirubin AST ALT Alkaline Phosphatase Troponin I Total Protein Albumin Globulin Albumin/Globulin Ratio Procalcitonin Urine Color Yellow Urine Appearance Clear Urine pH 7.0 Ur Specific [place] 1.023 Urine Protein 1+ H Urine Glucose (UA) Negative Urine Ketones Negative Urine Blood Negative Urine Nitrite Negative Urine Bilirubin Negative Urine Urobilinogen Negative Ur Leukocyte Esterase Negative Urine WBC (Auto) 0 Urine RBC (Auto) 0-4 U Hyaline Cast (Auto) 0 U Epithel Cells (Auto) 10-20 H Urine Bacteria (Auto) Negative Nasal Screen MRSA (PCR) COVID-19 Eval Order SARS-CoV-2 (PCR) Influenza Type A (PCR) Influenza Type B (PCR) RSV (RT-PCR) Blood Type A Positive Blood Type Recheck Antibody Screen NEGATIVE Crossmatch See Detail 06/26/20 06/26/20 06/26/20 18:40 18:40 18:40 WBC RBC Hgb Hct MCV MCH MCHC RDW Std Deviation RDW Coeff of [place] Plt Count MPV Immature Gran % (Auto) Neut % (Auto) Lymph % (Auto) [place] % (Auto) Eos % (Auto) Baso % (Auto) Neut # (Auto) Lymph # (Auto) [place] # (Auto) Eos # (Auto) Baso # (Auto) Immature Gran # (Auto) Echinocytes PT 10.8 INR 1.1 APTT 24.1 PTT Ratio 0.9 Sodium 148 H Potassium 3.9 Chloride 114 H Carbon Dioxide 27 Anion Gap 7.0 BUN 34 H Creatinine 1.12 Est Cr Clr Drug Dosing Not Reportable Est GFR ( Amer) 68.6 Est GFR (Non-Af Amer) 59.2 BUN/Creatinine Ratio 30.1 H Glucose 174 H Lactate 3.1 H* Calcium 9.0 Magnesium 3.1 H Total Bilirubin 0.4 AST 28 ALT 12 Alkaline Phosphatase 45 Troponin I 0.022 Total Protein 6.4 Albumin 3.0 L Globulin 3.4 Albumin/Globulin Ratio 0.9 Procalcitonin Urine Color Urine Appearance Urine pH Ur Specific [place] Urine Protein Urine Glucose (UA) Urine Ketones Urine Blood Urine Nitrite Urine Bilirubin Urine Urobilinogen Ur Leukocyte Esterase Urine WBC (Auto) Urine RBC (Auto) U Hyaline Cast (Auto) U Epithel Cells (Auto) Urine Bacteria (Auto) Nasal Screen MRSA (PCR) COVID-19 Eval Order SARS-CoV-2 (PCR) Influenza Type A (PCR) Influenza Type B (PCR) RSV (RT-PCR) Blood Type Blood Type Recheck Antibody Screen Crossmatch 06/26/20 06/26/20 06/26/20 18:40 19:54 19:54 WBC RBC Hgb Hct MCV MCH MCHC RDW Std Deviation RDW Coeff of [place] Plt Count MPV Immature Gran % (Auto) Neut % (Auto) Lymph % (Auto) [place] % (Auto) Eos % (Auto) Baso % (Auto) Neut # (Auto) Lymph # (Auto) [place] # (Auto) Eos # (Auto) Baso # (Auto) Immature Gran # (Auto) Echinocytes PT INR APTT PTT Ratio Sodium Potassium Chloride Carbon Dioxide Anion Gap BUN Creatinine Est Cr Clr Drug Dosing Est GFR ( Amer) Est GFR (Non-Af Amer) BUN/Creatinine Ratio Glucose Lactate Calcium Magnesium Total Bilirubin AST ALT Alkaline Phosphatase Troponin I Total Protein Albumin Globulin Albumin/Globulin Ratio Procalcitonin 0.06 Urine Color Urine Appearance Urine pH Ur Specific [place] Urine Protein Urine Glucose (UA) Urine Ketones Urine Blood Urine Nitrite Urine Bilirubin Urine Urobilinogen Ur Leukocyte Esterase Urine WBC (Auto) Urine RBC (Auto) U Hyaline Cast (Auto) U Epithel Cells (Auto) Urine Bacteria (Auto) Nasal Screen MRSA (PCR) COVID-19 Eval Order CovFluRsv at [facility] SARS-CoV-2 (PCR) NEGATIVE Influenza Type A (PCR) Negative Influenza Type B (PCR) Negative RSV (RT-PCR) Negative Blood Type Blood Type Recheck Antibody Screen Crossmatch 06/26/20 06/26/20 06/27/20 20:49 21:31 00:50 WBC RBC Hgb Hct MCV MCH MCHC RDW Std Deviation RDW Coeff of [place] Plt Count MPV Immature Gran % (Auto) Neut % (Auto) Lymph % (Auto) [place] % (Auto) Eos % (Auto) Baso % (Auto) Neut # (Auto) Lymph # (Auto) [place] # (Auto) Eos # (Auto) Baso # (Auto) Immature Gran # (Auto) Echinocytes PT INR APTT PTT Ratio Sodium Potassium Chloride Carbon Dioxide Anion Gap BUN Creatinine Est Cr Clr Drug Dosing Est GFR ( Amer) Est GFR (Non-Af Amer) BUN/Creatinine Ratio Glucose Lactate 2.0 Calcium Magnesium Total Bilirubin AST ALT Alkaline Phosphatase Troponin I Total Protein Albumin Globulin Albumin/Globulin Ratio Procalcitonin Urine Color Urine Appearance Urine pH Ur Specific [place] Urine Protein Urine Glucose (UA) Urine Ketones Urine Blood Urine Nitrite Urine Bilirubin Urine Urobilinogen Ur Leukocyte Esterase Urine WBC (Auto) Urine RBC (Auto) U Hyaline Cast (Auto) U Epithel Cells (Auto) Urine Bacteria (Auto) Nasal Screen MRSA (PCR) Negative COVID-19 Eval Order SARS-CoV-2 (PCR) Influenza Type A (PCR) Influenza Type B (PCR) RSV (RT-PCR) Blood Type Blood Type Recheck A Positive Antibody Screen Crossmatch 06/27/20 03:06 WBC RBC Hgb 12.7 L Hct 38.0 L MCV MCH MCHC RDW Std Deviation RDW Coeff of [place] Plt Count MPV Immature Gran % (Auto) Neut % (Auto) Lymph % (Auto) [place] % (Auto) Eos % (Auto) Baso % (Auto) Neut # (Auto) Lymph # (Auto) [place] # (Auto) Eos # (Auto) Baso # (Auto) Immature Gran # (Auto) Echinocytes PT INR APTT PTT Ratio Sodium Potassium Chloride Carbon Dioxide Anion Gap BUN Creatinine Est Cr Clr Drug Dosing Est GFR ( Amer) Est GFR (Non-Af Amer) BUN/Creatinine Ratio Glucose Lactate Calcium Magnesium Total Bilirubin AST ALT Alkaline Phosphatase Troponin I Total Protein Albumin Globulin Albumin/Globulin Ratio Procalcitonin Urine Color Urine Appearance Urine pH Ur Specific [place] Urine Protein Urine Glucose (UA) Urine Ketones Urine Blood Urine Nitrite Urine Bilirubin Urine Urobilinogen Ur Leukocyte Esterase Urine WBC (Auto) Urine RBC (Auto) U Hyaline Cast (Auto) U Epithel Cells (Auto) Urine Bacteria (Auto) Nasal Screen MRSA (PCR) COVID-19 Eval Order SARS-CoV-2 (PCR) Influenza Type A (PCR) Influenza Type B (PCR) RSV (RT-PCR) Blood Type Blood Type Recheck Antibody Screen Crossmatch Medications Administered Current Inpatient Medications Carbidopa/Levodopa (Carbidopa/Levodopa 25/100mg Tab) 0.5 tab PO BID@0830,1630 [facility] Stop: 07/27/20 08:29 Pantoprazole Sodium 40 mg/ (Syringe) 10 mls @ 5 mls/min IV BID [facility] Stop: 07/26/20 20:59 Last Admin: 06/26/20 23:43 Dose: 5 mls/min Documented by: Piperacillin Sod/Tazobactam (Sod 3.375 gm/ Dextrose) 115 mls @ 28.75 mls/hr IV Q8H [facility]; Protocol Stop: 07/03/20 22:00 Last Admin: 06/27/20 06:19 Dose: 28.8 mls/hr Documented by: Dextrose/Sodium Chloride (D5w And 1/2nss) 1,000 mls @ 80 mls/hr IV .[id number] [facility] Stop: 07/27/20 07:29 Miscellaneous Information (Piperacill/Tazobac Consult Active) 1 ea N/A UD PRN PRN Reason: Consult Stop: 07/26/20 22:00 Ondansetron HCl (Ondansetron Inj 2 Mg/Ml 2 Ml Vial) 4 mg IV Q6H PRN PRN Reason: Nausea Stop: 07/26/20 22:00 Polyethylene Glycol (Polyethylene (Miralax) 17 Gm Pack) 17 gm PO Q6 [facility] Stop: 07/27/20 11:59 PG Care Time/CCT Total # of Minutes Spent Total Time Spent with Patient: Total time spent is greater than 50% in coordination of care (as documented) at patient's floor/unit and/or counseling patient: Coding Level of Care Code 69377 Subseq Hosp Care Lvl 3 Diagnoses Acute lower GI bleeding K92.2 Acute hypotension I95.9 CAD (coronary artery disease) I25.10 Associated angina: unspecified whether angina present Coronary Disease-Associated Artery/Lesion type: [place] artery [place] vs. transplanted heart: [place] heart Fecal impaction K56.41 Colitis K52.9 BPH NOS w ur obs/LUTS N40.1 Dementia F03.90 Parkinson's disease G20 (1) CAD (coronary artery disease) Associated angina: unspecified whether angina present Coronary Disease- Associated Artery/Lesion type: [place] artery [place] vs. transplanted heart: [place] heart Qualified Code(s): I25.10 - Atherosclerotic heart disease of [place] coronary artery without angina pectoris
[2020-06-27] MEDS: D5W AND 1/2NSS 1,000 ML IV SCH ×2 (08:42→20:49)
[2020-06-27] MEDS: PANTOprazole 40 MG in SYRINGE 0 ML IV SCH ×2 (08:47→20:49)
[2020-06-27] MEDS: CARBIDOPA/LEVODOPA 25/100MG TAB PO SCH ×2 (08:47→17:54)
--- NOTE | 2020-06-27 11:11 | XCELERA ---
[id number]
[2020-06-27] MEDS: POLYETHYLENE (MIRALAX) 17 GM PACK PO SCH ×3 (11:54→23:30)
--- NOTE | 2020-06-27 12:29 | Electrocardiogram Report ---
Test Reason : Blood Pressure : / mmHG Vent. Rate : 071 BPM Atrial Rate : 071 BPM P-R Int : 130 ms QRS Dur : 090 ms QT Int : 414 ms P-R-T Axes : 083 080 079 degrees QTc Int : 449 ms Poor data quality, interpretation may be adversely affected Normal sinus rhythm Normal ECG When compared with ECG of 22-JUN-2016 09:42, Premature atrial complexes are no longer Present Nonspecific T wave abnormality no longer evident in Inferior leads Confirmed by James Gipson ([id number]) on 06/27/2020 12:29:12 PM Referred By: [facility] Confirmed By:James Gipson
--- NOTE | 2020-06-27 17:38 | Palliative Care Consultation ---
Date of Consultation June 27, 2020 Assessment & Plan (1) Palliative care encounter: I spoke with Mrs. Garcia on the phone. She is concerned about his mental status could change so quickly. We discussed the possible causes for this and current treatments with IV fluids and antibiotics. 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 He would not want aggressive measures to prolong his life if he is not able to be his active, cogent self. She is agreeable to continuing antibiotics and fluids at this time, as well as transfusion. She feels that if his condition does not improve over the next couple of days, she would want to take a more comfort focused approach. Palliative care will follow. (2) Dementia: (3) Colitis: (4) Parkinson's disease: (5) Acute lower GI bleeding: History of Present Illness Reason for Consultation: goals of care Requesting Physician: Dr. Winter Attending Physician: Marco Antonio Winter, DO History of Present Illness 84 yo gentleman with Parkinson's disease and dementia who had been at home, ambulating with assistance and continent of bowel and bladder two weeks ago. He was admitted to SNF two weeks ago and hospitalized with mental status change. CT of head was negative. CT of abdomen and pelvis shows fecal retention and proctitis. He had been hypotensive on admission but is now stable off pressors. He has had some lower GI bleeding and is being transfused with PRBCs since admission. He is currently only minimally responsive. Allergies Allergy/AdvReac Type Severity Reaction Status Date / Time No Known Allergies Allergy Verified 06/26/20 18:46 Home Medications Medication Instructions Recorded Confirmed Type atorvastatin 40 mg PO HS 01/19/18 06/26/20 History carbidopa-levodopa 0.5 tab PO AMPM 01/19/18 06/26/20 History escitalopram oxalate [Lexapro] 5 mg PO QAM 01/19/18 06/26/20 History Med Pass 60 ml PO QID 06/26/20 06/26/20 History Skin Prep Pads 1 applic TOPICAL HS 06/26/20 06/26/20 History acetaminophen [Tylenol] 650 mg PO Q6H PRN MDD 3 GRAMS/24 06/26/20 06/26/20 History HOURS aspirin 81 mg PO QAM 06/26/20 06/26/20 History donepezil [Aricept] 5 mg PO QAM 06/26/20 06/26/20 History finasteride 5 mg PO HS 06/26/20 06/26/20 History lisinopril 2.5 mg PO QAM 06/26/20 06/26/20 History lorazepam 0.5 mg PO .Q24HR PRN 06/26/20 06/26/20 History lorazepam 0.5 mg PO HS 06/26/20 06/26/20 History menthol-zinc oxide [Calmoseptine] 1 applic TOPICAL TID 06/26/20 06/26/20 History triamcinolone acetonide 1 applic TOPICAL AMPM 06/26/20 06/26/20 History Patient History Medical History DVT (deep venous thrombosis) Kidney stones Parkinson's disease SNHL (sensorineural hearing loss) Family History Other No pertinent family history Social History Smoking Status: Former smoker Hx Alcohol Use: Yes Alcohol type: beer Hx Substance Use: No Communication Ability: Impaired Communication Ability Comment: Baseline no communication impairment (Changed this afternoon) De Icer Finisher Required: No Beliefs That Will Affect Care: None Current Living Situation: Other Current Living Situation Comment: [facility] Other Information That Helps Us Care for You: No Feels Safe at Home: Declines to Answer Assistive Devices: Oxygen - Continuous Review of Systems Review of Systems: Unobtainable due to reduced consciousness Palliative Performance Score 20% Physical Exam Constitutional: + thin; no acute distress ENMT: Mouth: + dry oral mucous membranes Respiratory: normal respiratory effort; no labored breathing Cardiovascular: Rate/Rhythm: regular rate and regular rhythm Gastrointestinal (Abdomen): tender to palpation, palpable stool Musculoskeletal: Extremities: + muscle atrophy Neurologic: + not awake Results & Data ([facility]) Vital Signs (Past 12 Hours) Vital Signs Temp Pulse Pulse Resp BP Pulse Ox 06/27/20 16:00 98.2 F 85 99 H 18 125/56 L 94 06/27/20 12:00 99.0 F 93 H 18 124/59 L 100 06/27/20 08:00 98.1 F 94 H 85 18 108/52 L 100 06/27/20 06:00 95 H 18 96 PG Care Time/CCT Total # of Minutes Spent Total Time Spent with Patient: Total time spent is greater than 50% in coordin ation of care (as documented) at patient's floor/unit and/or counseling patient: total time spent 50 minutes with more than 50% of time spent on goals of care, coordination of care. Coding Level of Care Code 70979 Inpt Consult Level 3 Diagnoses Palliative care encounter Z51.5 Dementia F03.90 Colitis K52.9 Parkinson's disease G20 Acute lower GI bleeding K92.2
--- NOTE | 2020-06-28 03:47 | Billing Data ---
Date of Service June 28, 2020 Coding Level of Care Code 63719 Initial Inpt Care Lvl 3
[2020-06-28] MEDS: POLYETHYLENE (MIRALAX) 17 GM PACK PO SCH ×4 (05:59→23:38)
[2020-06-28] MEDS: PIPERACILLIN/TAZOBACTAM 3.375 GM in DEXTROSE 5% 100 ML IV SCH ×3 (06:00→22:03)
[2020-06-28] MEDS: PANTOprazole 40 MG in SYRINGE 0 ML IV SCH ×2 (08:20→20:16)
[2020-06-28] MEDS: D5W AND 1/2NSS 1,000 ML IV SCH ×2 (08:21→20:15)
[2020-06-28] MEDS: CARBIDOPA/LEVODOPA 25/100MG TAB PO SCH ×2 (08:21→17:15)
[2020-06-28 08:48] LABS: Hematocrit (blood only) 36.7 % (42-52); Hemoglobin 11.9 g/dL (14.0-18.0); Mean Corpuscular Hgb Conc 32.4 g/dL (32-36); Mean Corpuscular Volume 92.4 fL (80-100); Mean Platelet Volume 11.4 fL (7.4-10.4); Platelet Count 170 K/uL (130-400); RDW Coefficient of Variation 14.2 % (11.5-14.5); RDW Standard Deviation 48.2 fL (36.4-46.3); Red Blood Count 3.97 M/uL (4.7-6.1); White Blood Count 11.03 K/uL (4.8-10.8)
[2020-06-28 09:15] LABS: Basophils # (auto) 0.03 K/uL (0-0.2); Basophils % (auto) 0.3 %; Echinocytes 1+; Eosinophils # (auto) 0.21 K/uL (0-0.5); Eosinophils % (auto) 1.9 %; Immature Granulocytes # (auto) 0.01 K/uL (0.00-0.02); Immature Granulocytes % (auto) 0.1 %; Lymphocytes # (auto) 0.95 K/uL (1.2-3.4); Lymphocytes % (auto) 8.6 %; Monocytes # (auto) 1.19 K/uL (0.11-0.59); Monocytes % (auto) 10.8 %; Neutrophils # (auto) 8.64 K/uL (1.4-6.5); Neutrophils % (auto) 78.3 %
[2020-06-28 09:27] LABS: BUN Creatinine Ratio 31.4 (10-20); Calcium 8.6 mg/dl (8.5-10.1); Creatinine Clr Calc Pharmacy 55.7 ml/min; Est GFR (African American) 97.3; Potassium 3.7 mmol/L (3.5-5.1)
--- NOTE | 2020-06-28 10:38 | Palliative Care Progress Note ---
Date of Service June 28, 2020 Assessment & Plan (1) Palliative care encounter: I spoke with Mrs. Garcia on the phone to update her. She would prefer to wait another day to see if there is any significant improvement, while continuing current level of care. If he does not show some improvement in his mental status, she is certain that this would not be a quality life for him and would want to shift focus of care to comfort. Discussed with Dr. Winter. Admission and Anticipated Discharge Date Admission Date: June 26, 2020 Subjective Opens eyes and answered "I don't know" when asked if his belly hurt. Nodded when asked if comfortable. No po intake. Continues to have loose BMs with no gross blood. Review of Systems Review of Systems: [place] Symptom Assessment Scale Pain 0/3 Drowsiness 2/3 Dyspnea 0/3 Palliative Performance Score 20% Physical Exam Constitutional: + ill appearing and + cachectic ENMT: Mouth: + dry oral mucous membranes Respiratory: no labored breathing Cardiovascular: Rate/Rhythm: regular rate and regular rhythm Extremities: no edema Gastrointestinal (Abdomen): Percussion/Palpation: abdomen nontender Musculoskeletal: Extremities: + muscle atrophy Results & Data ([facility]) Vital Signs (Past 12 Hours) Vital Signs Temp Pulse Pulse Resp BP Pulse Ox 06/28/20 08:07 97.9 F 80 21 106/65 100 06/28/20 08:00 91 H 06/28/20 04:21 98.1 F 92 H 18 118/75 92 06/27/20 23:50 98.4 F 86 18 129/61 94 PG Care Time/CCT Total # of Minutes Spent Total Time Spent with Patient: Total time spent is greater than 50% in coordination of care (as documented) at patient's floor/unit and/or counseling patient: Coding Level of Care Code 40756 Subseq Hosp Care Lvl 2 Diagnoses Palliative care encounter Z51.5
--- NOTE | 2020-06-28 15:24 | Hospitalist Progress Note ---
Date of Service June 28, 2020 Assessment & Plan (1) Acute lower GI bleedin yo M PMHx CAD, Parkinson's disease with severe dementia admitted for acute LGIB. Acute LGIB: Presented with lethargy, found to have blood in rectum and has had several bloody BMs while in ER. Hgb 13.4 on admission, down a little bit at 11.9 today but no mohan bleeding CTAP shows moderate to extensive fecal retention of the rectum with associated rectal wall thickening and perirectal edema suggestive of stercoral proctitis. Patient is DNR/DNI and no heroic measures, scopes, pressors per . She is amenable to IVF, supportive care, and PRBCs. allow him to have a diet but not eating or drinking safely, cannot take PO medications continue D5W 1/2 NSS at 80cc/hr continue Protonix, zosyn for colitis could not disimpact him on exam on 06/27, stool was too high up try Miralax if he would take it, doubt that enema or suppository would help consult palliative care to discuss goals of care his is clear that she does not want procedures or aggressive care will re-assess him tomorrow, if not making progress then transition to comfort care (2) Acute hypotension: sepsis, responded well to IV fluids, no PRBC needed BP 110's sytolic this morning (3) CAD (coronary artery disease): (4) Fecal impaction: could not manually disimpact 06/27 on exam, stool too high in rectum/sigmoid try Miralax q6 but he won't take PO liquid brown stool around the impacted stool, no blood he cannot follow commands, would not hold in an enema (5) Colitis: continue Zosyn, IV fluids for another 24 hours (6) BPH NOS w ur obs/LUTS: chu catheter in place (7) Dementia: has been at [facility] for 2 weeks, prior to that was living with his at baseline he is non-verbal was more ambulatory prior to going to [facility], has fallen a few times the past two weeks is upset, he has really deteriorated the past two weeks (8) Parkinson's disease: advanced with dementia, declining quality of life, cannot complete ADLs consult palliative care Admission and Anticipated Discharge Date Admission Date: June 26, 2020 Subjective patient still non verbal, won't follow commands, won't initiate a swallow, not safe to take medications no pain elicited on abdominal exam breathing comfortably on 2L reviewed labs, Hb stable, Na a little high d/w Dr. Bonds, palliative care she spoke with , continue antibiotics and fluids today, if not improving tomorrow then discuss comfort care I called the as well, provided update on clinical status Review of Systems Review of Systems: Unobtainable due to cognitive status Physical Exam Constitutional: well developed, + thin, + cachectic and + frail appearing; no acute distress Neck: trachea midline, no thyromegaly Respiratory: normal respiratory effort, lungs clear to auscultation Cardiovascular: RRR, no murmur, no edema Gastrointestinal (Abdomen): Inspection/Auscultation: abdomen normal to inspection and normal bowel sounds; abdomen not distended Percussion/Palpation: abdomen soft; abdomen nontender Rectal Exam: + fecal impaction (liquid brown stool in rectum) Musculoskeletal: Head/Neck/Chest: normocephalic, head atraumatic and neck supple Extremities: + abnormal strength (general weakness); no cyanosis, no clubbing and no petechiae Neurologic: CN's II-XI intact bilaterally, moves all extremities and awake; no focal motor deficits Motor/Sensory: + abnormal movement (rigidity) Psychiatric: Orientation: alert (eyes open, non verbal); + not oriented x 3 Lymphatic: no cervical or axillary lymphadenopathy Results & Data Results & Data ([facility]) Vital Signs (Past 12 Hours) Vital Signs Temp Pulse Pulse Resp BP Pulse Ox 06/28/20 12:17 36.4 C L 118 H 19 111/62 100 06/28/20 08:07 36.6 C 80 21 106/65 100 06/28/20 08:00 91 H 06/28/20 04:21 36.7 C 92 H 18 118/75 92 Laboratory Results Laboratory Results - last 24 hr 06/28/20 06/28/20 08:41 08:41 WBC 11.03 H RBC 3.97 L Hgb 11.9 L Hct 36.7 L MCV 92.4 MCH 30.0 MCHC 32.4 RDW Std Deviation 48.2 H RDW Coeff of [place] 14.2 Plt Count 170 MPV 11.4 H Immature Gran % (Auto) 0.1 Neut % (Auto) 78.3 Lymph % (Auto) 8.6 [place] % (Auto) 10.8 Eos % (Auto) 1.9 Baso % (Auto) 0.3 Neut # (Auto) 8.64 H Lymph # (Auto) 0.95 L [place] # (Auto) 1.19 H Eos # (Auto) 0.21 Baso # (Auto) 0.03 Immature Gran # (Auto) 0.01 Echinocytes 1+ Sodium 147 H Potassium 3.7 Chloride 120 H Carbon Dioxide 25 Anion Gap 3.0 BUN 23 H Creatinine 0.73 D Est Cr Clr Drug Dosing 55.7 Est GFR ( Amer) 97.3 Est GFR (Non-Af Amer) 84.0 BUN/Creatinine Ratio 31.4 H Glucose 99 Calcium 8.6 Magnesium 2.0 Medications Administered Current Inpatient Medications Carbidopa/Levodopa (Carbidopa/Levodopa 25/100mg Tab) 0.5 tab PO BID@0830,1630 [facility] Stop: 07/27/20 08:29 Last Admin: 06/28/20 08:21 Dose: Not Given Documented by: Pantoprazole Sodium 40 mg/ (Syringe) 10 mls @ 5 mls/min IV BID [facility] Stop: 07/26/20 20:59 Last Admin: 06/28/20 08:20 Dose: 5 mls/min Documented by: Piperacillin Sod/Tazobactam (Sod 3.375 gm/ Dextrose) 115 mls @ 28.75 mls/hr IV Q8H [facility]; Protocol Stop: 07/03/20 22:00 Last Admin: 06/28/20 14:13 Dose: 28.8 mls/hr Documented by: Dextrose/Sodium Chloride (D5w And 1/2nss) 1,000 mls @ 80 mls/hr IV .[id number] [facility] Stop: 07/27/20 07:29 Last Admin: 06/28/20 08:21 Dose: 80 mls/hr Documented by: Miscellaneous Information (Piperacill/Tazobac Consult Active) 1 ea N/A UD PRN PRN Reason: Consult Stop: 07/26/20 22:00 Ondansetron HCl (Ondansetron Inj 2 Mg/Ml 2 Ml Vial) 4 mg IV Q6H PRN PRN Reason: Nausea Stop: 07/26/20 22:00 Polyethylene Glycol (Polyethylene (Miralax) 17 Gm Pack) 17 gm PO Q6 [facility] Stop: 07/27/20 11:59 Last Admin: 06/28/20 12:15 Dose: Not Given Documented by: PG Care Time/CCT Total # of Minutes Spent Total Time Spent with Patient: Total time spent is greater than 50% in coordination of care (as documented) at patient's floor/unit and/or counseling patient: Coding Level of Care Code 59592 Subseq Hosp Care Lvl 2 Diagnoses Acute lower GI bleeding K92.2 Acute hypotension I95.9 CAD (coronary artery disease) I25.10 Coronary Disease-Associated Artery/Lesion type: [place] artery [place] vs. transplanted heart: [place] heart Associated angina: unspecified whether angina present Fecal impaction K56.41 Colitis K52.9 BPH NOS w ur obs/LUTS N40.1 Dementia F03.90 Parkinson's disease G20 (1) CAD (coronary artery disease) Coronary Disease-Associated Artery/Lesion type: [place] artery [place] vs. transplanted heart: [place] heart Associated angina: unspecified whether angina present Qualified Code(s): I25.10 - Atherosclerotic heart disease of [place] coronary artery without angina pectoris
[2020-06-29] MEDS ORDERED: VANCOMYCIN CONSULT ACTIVE PRN (01:26)
[2020-06-29] MEDS ORDERED: VANCOMYCIN HCL 1,250 MG in SODIUM CHLORIDE 0.9% 250 ML IV ONE (02:00)
[2020-06-29] MEDS ORDERED: OLANZAPINE 2.5 MG TAB PO ONE (02:30)
[2020-06-29] MEDS: PIPERACILLIN/TAZOBACTAM 3.375 GM in DEXTROSE 5% 100 ML IV SCH ×3 (05:44→21:32)
[2020-06-29] MEDS: POLYETHYLENE (MIRALAX) 17 GM PACK PO SCH ×2 (05:44→19:37)
[2020-06-29 07:20] LABS: Creatinine Clr Calc Pharmacy 66.9 ml/min; Est GFR (African American) 104.8; Est GFR (Non-African American) 90.4
[2020-06-29 08:42] LABS: Basophils # (auto) 0.04 K/uL (0-0.2); Basophils % (auto) 0.4 %; Eosinophils # (auto) 0.37 K/uL (0-0.5); Eosinophils % (auto) 3.4 %; Hemoglobin 12.2 g/dL (14.0-18.0); Immature Granulocytes # (auto) 0.02 K/uL (0.00-0.02); Immature Granulocytes % (auto) 0.2 %; Lymphocytes # (auto) 1.09 K/uL (1.2-3.4); Lymphocytes % (auto) 10.1 %; Mean Corpuscular Hemoglobin 30.2 pg (25-34); Mean Corpuscular Volume 91.6 fL (80-100); Mean Platelet Volume 11.9 fL (7.4-10.4); Monocytes # (auto) 0.92 K/uL (0.11-0.59); Monocytes % (auto) 8.5 %; Neutrophils % (auto) 77.4 %; Platelet Count 181 K/uL (130-400); RDW Coefficient of Variation 13.8 % (11.5-14.5); RDW Standard Deviation 45.8 fL (36.4-46.3); Red Blood Count 4.04 M/uL (4.7-6.1); White Blood Count 10.84 K/uL (4.8-10.8)
[2020-06-29 08:56] LABS: BUN Creatinine Ratio 22.1 (10-20); Calcium 8.4 mg/dl (8.5-10.1); Creatinine Clr Calc Pharmacy 63.8 ml/min; Est GFR (African American) 102.8; Est GFR (Non-African American) 88.7; Potassium 2.9 mmol/L (3.5-5.1)
[2020-06-29] MEDS: D5W AND 1/2NSS 1,000 ML IV SCH (09:44)
[2020-06-29] MEDS: PANTOprazole 40 MG in SYRINGE 0 ML IV SCH (09:49)
[2020-06-29] MEDS ORDERED: VANCOMYCIN HCL 1,250 MG in SODIUM CHLORIDE 0.9% 250 ML IV SCH (12:00)
[2020-06-29] MEDS ORDERED: VANCOMYCIN HCL 750 MG in SODIUM CHLORIDE 0.9% 250 ML IV SCH (12:00)
[2020-06-29] MEDS: POTASSIUM CHLORIDE / WTR 10 MEQ/100 ML PLCT IV SCH ×4 (12:08→15:52)
--- NOTE | 2020-06-29 12:32 | Hospitalist Progress Note ---
Date of Service June 29, 2020 Assessment & Plan (1) Acute lower GI bleedin yo M PMHx CAD, Parkinson's disease with severe dementia admitted for acute LGIB. Acute LGIB: Presented with lethargy, found to have blood in rectum and has had several bloody BMs while in ER. Hgb 13.4 on admission, stable at 12 today CTAP shows moderate to extensive fecal retention of the rectum with associated rectal wall thickening and perirectal edema suggestive of stercoral proctitis. Patient is DNR/DNI and no heroic measures, scopes, pressors per . She is amenable to IVF, supportive care, and PRBCs. allow him to have a diet, more alert today, easy to chew foods, evaluated by speech therapy, will consult child day care provider continue D5W 1/2 NSS at 80cc/hr since his PO intake is still not great continue Protonix PO, zosyn for colitis, stop Vanco could not disimpact him on exam on 06/27, stool was too high up try Miralax BID, divide into 4oz doses and give over course of the day if no BM today then will try to disimpact him again tomorrow, consider enema? consult palliative care to discuss goals of care his is clear that she does not want procedures or aggressive care continue fluids, antibiotics, try to improve PO intake (2) Acute hypotension: sepsis, responded well to IV fluids, no PRBC needed BP 100's sytolic this morning (3) CAD (coronary artery disease): (4) Fecal impaction: could not manually disimpact 06/27 on exam, stool too high in rectum/sigmoid try Miralax throughout the day liquid brown stool around the impacted stool, no blood he cannot follow commands, would not hold in an enema (5) Colitis: continue Zosyn, IV fluids WBC down to 10k, no fever, vitals stable (6) BPH NOS w ur obs/LUTS: chu catheter in place (7) Dementia: has been at [facility] for 2 weeks, prior to that was living with his at baseline he is non-verbal was more ambulatory prior to going to [facility], has fallen a few times the past two weeks is upset, he has really deteriorated the past two weeks (8) Parkinson's disease: advanced with dementia, declining quality of life, cannot complete ADLs consult palliative care resume Sinemet now that he is swallowing Admission and Anticipated Discharge Date Admission Date: June 26, 2020 Subjective patient is more alert today, actually able to initiate a swallow, had some pudding will resume PO medications, try to get him to take Miralax labs reviewed, WBC down to 10k, K low at 2.9, Na 148, Cr stable no pain when pushing on his abdomen, he is not short of breath cannot complete ROS, not much in terms of verbal responses Review of Systems Review of Systems: Unobtainable due to cognitive status (non verbal) Physical Exam Constitutional: well developed, + thin, + cachectic and + frail appearing; no acute distress Neck: trachea midline, no thyromegaly Respiratory: normal respiratory effort, lungs clear to auscultation Cardiovascular: RRR, no murmur, no edema Gastrointestinal (Abdomen): Inspection/Auscultation: abdomen normal to inspection and normal bowel sounds; abdomen not distended Percussion/Palpation: abdomen soft; abdomen nontender Musculoskeletal: Head/Neck/Chest: normocephalic, head atraumatic and neck supple Extremities: + abnormal strength (general weakness); no cyanosis, no clubbing and no petechiae Neurologic: CN's II-XI intact bilaterally, moves all extremities and awake; no focal motor deficits Motor/Sensory: + abnormal movement (rigidity) Psychiatric: Orientation: alert (eyes open, a little more responsive today); + not oriented x 3 Lymphatic: no cervical or axillary lymphadenopathy Results & Data Results & Data ([facility]) Vital Signs (Past 12 Hours) Vital Signs Temp Resp BP Pulse Ox 06/29/20 07:23 36.9 C 20 109/68 91 Laboratory Results Laboratory Results - last 24 hr 06/26/20 06/29/20 06/29/20 18:55 06:11 06:20 WBC 10.84 H RBC 4.04 L Hgb 12.2 L Hct 37.0 L MCV 91.6 MCH 30.2 MCHC 33.0 RDW Std Deviation 45.8 RDW Coeff of [place] 13.8 Plt Count 181 MPV 11.9 H Immature Gran % (Auto) 0.2 Neut % (Auto) 77.4 Lymph % (Auto) 10.1 [place] % (Auto) 8.5 Eos % (Auto) 3.4 Baso % (Auto) 0.4 Neut # (Auto) 8.40 H Lymph # (Auto) 1.09 L [place] # (Auto) 0.92 H Eos # (Auto) 0.37 Baso # (Auto) 0.04 Immature Gran # (Auto) 0.02 Sodium Potassium Chloride Carbon Dioxide Anion Gap BUN Creatinine 0.61 Est Cr Clr Drug Dosing 66.9 Est GFR ( Amer) 104.8 Est GFR (Non-Af Amer) 90.4 BUN/Creatinine Ratio Glucose Calcium Bld Cult Staph aureus PCR Negative Blood Culture MRSA PCR Negative 06/29/20 06:20 WBC RBC Hgb Hct MCV MCH MCHC RDW Std Deviation RDW Coeff of [place] Plt Count MPV Immature Gran % (Auto) Neut % (Auto) Lymph % (Auto) [place] % (Auto) Eos % (Auto) Baso % (Auto) Neut # (Auto) Lymph # (Auto) [place] # (Auto) Eos # (Auto) Baso # (Auto) Immature Gran # (Auto) Sodium 146 H Potassium 2.9 L D Chloride 116 H Carbon Dioxide 26 Anion Gap 5.0 BUN 14 Creatinine 0.64 Est Cr Clr Drug Dosing 63.8 Est GFR ( Amer) 102.8 Est GFR (Non-Af Amer) 88.7 BUN/Creatinine Ratio 22.1 H Glucose 95 Calcium 8.4 L Bld Cult Staph aureus PCR Blood Culture MRSA PCR Medications Administered Current Inpatient Medications Pantoprazole Sodium 40 mg/ (Syringe) 10 mls @ 5 mls/min IV BID [facility] Stop: 07/26/20 20:59 Last Admin: 06/29/20 09:49 Dose: 5 mls/min Documented by: Piperacillin Sod/Tazobactam (Sod 3.375 gm/ Dextrose) 115 mls @ 28.75 mls/hr IV Q8H [facility]; Protocol Stop: 07/03/20 22:00 Last Infusion: 06/29/20 10:21 Dose: Infused Documented by: Vancomycin HCl 750 mg/ Sodium (Chloride) 265 mls @ 200 mls/hr IV Q12H [facility] Stop: 07/13/20 11:59 Potassium Chloride/Dextrose/Sod Cl (D5w And 1/4nss + 20meq Kcl) 20 meq in 1,000 mls @ 80 mls/hr IV .[id number] [facility] Stop: 07/29/20 11:29 Potassium Chloride (K Flip / Wtr) 10 meq in 100 mls @ 100 mls/hr IV Q1H [facility] Stop: 06/29/20 15:59 Last Admin: 06/29/20 12:08 Dose: 100 mls/hr Documented by: Miscellaneous Information (Piperacill/Tazobac Consult Active) 1 ea N/A UD PRN PRN Reason: Consult Stop: 07/26/20 22:00 Miscellaneous Information (Vancomycin Consult Active) 1 ea N/A UD PRN PRN Reason: Consult Stop: 07/29/20 01:25 Ondansetron HCl (Ondansetron Inj 2 Mg/Ml 2 Ml Vial) 4 mg IV Q6H PRN PRN Reason: Nausea Stop: 07/26/20 22:00 Polyethylene Glycol (Polyethylene (Miralax) 17 Gm Pack) 17 gm PO Q6 [facility] Stop: 07/27/20 11:59 Last Admin: 06/29/20 05:44 Dose: Not Given Documented by: PG Care Time/CCT Total # of Minutes Spent Total Time Spent: 32 Total Time Spent with Patient: Total time spent is greater than 50% in coordination of care (as documented) at patient's floor/unit and/or counseling patient: Coding Level of Care Code 72154 Subseq Hosp Care Lvl 3 Diagnoses Acute lower GI bleeding K92.2 Acute hypotension I95.9 CAD (coronary artery disease) I25.10 Coronary Disease-Associated Artery/Lesion type: [place] artery [place] vs. transplanted heart: [place] heart Associated angina: unspecified whether angina present Fecal impaction K56.41 Colitis K52.9 BPH NOS w ur obs/LUTS N40.1 Dementia F03.90 Parkinson's disease G20 (1) CAD (coronary artery disease) Coronary Disease-Associated Artery/Lesion type: [place] artery [place] vs. transplanted heart: [place] heart Associated angina: unspecified whether angina present Qualified Code(s): I25.10 - Atherosclerotic heart disease of [place] coronary artery without angina pectoris
[2020-06-29] MEDS: D5W AND 1/4NSS + 20MEQ KCL 20 MEQ/1,000 ML BAG IV SCH (13:18)
--- NOTE | 2020-06-29 15:51 | Palliative Care Progress Note ---
Date of Service June 29, 2020 Assessment & Plan (1) Palliative care encounter: I spoke with Joie on the phone. He has had some small improvements, though his prognosis remains poor. Speech therapy eval pending per Dr. Winter. Continue to monitor. Joie is considering [facility] return to [facility] when he is ready for discharge. She is not able to care for him at home. Admission and Anticipated Discharge Date Admission Date: June 26, 2020 Subjective Eyes open. Answers some yes/no questions. Per RN was able to take a few bites of pudding today. Review of Systems Review of Systems: Asp[place] Symptom Assessment SCale Pain AD 0/3 Dyspnea 0/3 Drowsiness 1/3 Palliative Performance Score 30% Physical Exam Constitutional: + thin and + frail appearing ENMT: Mouth: + dry oral mucous membranes Respiratory: normal respiratory effort; no labored breathing Cardiovascular: Extremities: no edema Musculoskeletal: Extremities: + muscle atrophy Neurologic: Speech / Cognition: + abnormal cognition Psychiatric: Affect: + flat affect Results & Data ([facility]) Vital Signs (Past 12 Hours) Vital Signs Temp Pulse Resp BP Pulse Ox 06/29/20 15:00 98.2 F 58 L 18 119/63 94 06/29/20 07:23 98.4 F 20 109/68 91 PG Care Time/CCT Total # of Minutes Spent Total Time Spent with Patient: Total time spent is greater than 50% in coordination of care (as documented) at patient's floor/unit and/or counseling patient: total time spent 35 minutes with more than 50% of time spent on coordination of care, family update and support Coding Level of Care Code 34877 Subseq Hosp Care Lvl 3 Diagnoses Palliative care encounter Z51.5
[2020-06-29] MEDS: CARBIDOPA/LEVODOPA 25/100MG TAB PO SCH (19:37)
[2020-06-30] MEDS: D5W AND 1/4NSS + 20MEQ KCL 20 MEQ/1,000 ML BAG IV SCH ×2 (00:57→13:28)
[2020-06-30] MEDS: PIPERACILLIN/TAZOBACTAM 3.375 GM in DEXTROSE 5% 100 ML IV SCH ×3 (05:36→22:38)
[2020-06-30 06:48] LABS: Creatinine Clr Calc Pharmacy 74.2 ml/min; Est GFR (African American) 109.4; Est GFR (Non-African American) 94.4
[2020-06-30] MEDS: CARBIDOPA/LEVODOPA 25/100MG TAB PO SCH ×2 (10:14→22:38)
[2020-06-30] MEDS: PANTOprazole 40 MG TAB PO SCH (10:14)
[2020-06-30] MEDS: POLYETHYLENE (MIRALAX) 17 GM PACK PO SCH ×3 (10:20→21:16)
--- NOTE | 2020-06-30 14:26 | Hospitalist Progress Note ---
Date of Service June 30, 2020 Assessment & Plan (1) Colitis: continue Zosyn, IV fluid over the weekend no fever, vitals stable had a large BM yesterday evening will transition to home hospice Friday/Friday (2) Acute lower GI bleedin yo M PMHx CAD, Parkinson's disease with severe dementia admitted for acute LGIB. Hb stable at 12, no further bleeding, likely due to colitis continue fluids as he is not eating well plan for home hospice (3) Acute hypotension: sepsis, responded well to IV fluids, no PRBC needed BP elevated today (4) CAD (coronary artery disease): no signs of ACS (5) Fecal impaction: could not manually disimpact 06/27 on exam, stool too high in rectum/sigmoid large BM last night (6) BPH NOS w ur obs/LUTS: chu catheter in place will keep in place for home hospice (7) Dementia: has been at [facility] for 2 weeks, prior to that was living with his at baseline he is non-verbal was more ambulatory prior to going to [facility], has fallen a few times the past two weeks he is deteriorating, will not eat or drink today, he is cachectic, bed bound cannot eat or drink enough to sustain himself agrees to home hospice after the weekend (8) Parkinson's disease: advanced with dementia, declining quality of life, cannot complete ADLs consult palliative care won't take Sinemet consistently Admission and Anticipated Discharge Date Admission Date: June 26, 2020 Subjective patient is more alert this afternoon, slept most of the night and all morning he did have a very large BM yesterday, RN said it was a very significant amount he was re-evaluated by speech therapy today, he did not do well, would not initiate a swallow attempted mackenzie cracker, pureed food, water from cup concerns that he will not be able to eat or drink enough to maintain nutrition, he is already cachectic as it is spoke with his Joie, she agrees with home hospice will continue antibiotics and fluids through the weekend Review of Systems Review of Systems: Unobtainable due to cognitive status (confused, non verbal) Physical Exam Constitutional: well developed, + thin, + cachectic and + frail appearing; no acute distress Neck: trachea midline, no thyromegaly Respiratory: normal respiratory effort, lungs clear to auscultation Cardiovascular: RRR, no murmur, no edema Gastrointestinal (Abdomen): Inspection/Auscultation: abdomen normal to inspection and normal bowel sounds; abdomen not distended Percussion/Palpation: abdomen soft; abdomen nontender Musculoskeletal: Head/Neck/Chest: normocephalic, head atraumatic and neck supple Extremities: + abnormal strength (general weakness); no cyanosis, no clubbing and no petechiae Neurologic: CN's II-XI intact bilaterally, moves all extremities and awake; no focal motor deficits Motor/Sensory: + abnormal movement (rigidity) Psychiatric: Orientation: alert (eyes open, a little more responsive today); + not oriented x 3 Lymphatic: no cervical or axillary lymphadenopathy Results & Data Results & Data ([facility]) Vital Signs (Past 12 Hours) Vital Signs Temp Pulse Resp BP Pulse Ox 06/30/20 07:16 36.6 C 64 16 164/84 H 97 Laboratory Results Laboratory Results - last 24 hr 06/30/20 05:45 Creatinine 0.55 L Est Cr Clr Drug Dosing 74.2 Est GFR ( Amer) 109.4 Est GFR (Non-Af Amer) 94.4 Medications Administered Current Inpatient Medications Carbidopa/Levodopa (Carbidopa/Levodopa 25/100mg Tab) 0.5 tab PO BID [facility] Stop: 07/29/20 20:59 Last Admin: 06/30/20 10:14 Dose: 0.5 tab Documented by: Piperacillin Sod/Tazobactam (Sod 3.375 gm/ Dextrose) 115 mls @ 28.75 mls/hr IV Q8H [facility]; Protocol Stop: 07/03/20 22:00 Last Admin: 06/30/20 14:06 Dose: 28.8 mls/hr Documented by: Potassium Chloride/Dextrose/Sod Cl (D5w And 1/4nss + 20meq Kcl) 20 meq in 1,000 mls @ 80 mls/hr IV .[id number] [facility] Stop: 07/29/20 11:29 Last Admin: 06/30/20 13:28 Dose: 80 mls/hr Documented by: Miscellaneous Information (Piperacill/Tazobac Consult Active) 1 ea N/A UD PRN PRN Reason: Consult Stop: 07/26/20 22:00 Ondansetron HCl (Ondansetron Inj 2 Mg/Ml 2 Ml Vial) 4 mg IV Q6H PRN PRN Reason: Nausea Stop: 07/26/20 22:00 Pantoprazole Sodium (Pantoprazole 40 Mg Tab) 40 mg PO QAM [facility] Stop: 07/30/20 08:59 Last Admin: 06/30/20 10:14 Dose: 40 mg Documented by: Polyethylene Glycol (Polyethylene (Miralax) 17 Gm Pack) 17 gm PO BID [facility] Stop: 07/29/20 20:59 Last Admin: 06/30/20 10:20 Dose: Not Given Documented by: PG Care Time/CCT Total # of Minutes Spent Total Time Spent: 32 Total Time Spent with Patient: Total time spent is greater than 50% in coordination of care (as documented) at patient's floor/unit and/or counseling patient: Coding Level of Care Code 97031 Subseq Hosp Care Lvl 3 Diagnoses Colitis K52.9 Acute lower GI bleeding K92.2 Acute hypotension I95.9 CAD (coronary artery disease) I25.10 Coronary Disease-Associated Artery/Lesion type: [place] artery [place] vs. transplanted heart: [place] heart Associated angina: unspecified whether angina present Fecal impaction K56.41 BPH NOS w ur obs/LUTS N40.1 Dementia F03.90 Parkinson's disease G20 (1) CAD (coronary artery disease) Coronary Disease-Associated Artery/Lesion type: [place] artery [place] vs. transplanted heart: [place] heart Associated angina: unspecified whether angina present Qualified Code(s): I25.10 - Atherosclerotic heart disease of [place] coronary artery without angina pectoris
[2020-07-01] MEDS: D5W AND 1/4NSS + 20MEQ KCL 20 MEQ/1,000 ML BAG IV SCH ×2 (00:22→12:25)
[2020-07-01 06:12] LABS: Creatinine Clr Calc Pharmacy 75.6 ml/min; Est GFR (African American) 110.2; Est GFR (Non-African American) 95.1
[2020-07-01] MEDS: PIPERACILLIN/TAZOBACTAM 3.375 GM in DEXTROSE 5% 100 ML IV SCH ×3 (06:20→21:01)
[2020-07-01] MEDS: CARBIDOPA/LEVODOPA 25/100MG TAB PO SCH ×2 (08:36→21:01)
[2020-07-01] MEDS: POLYETHYLENE (MIRALAX) 17 GM PACK PO SCH ×2 (08:36→21:01)
[2020-07-01] MEDS: PANTOprazole 40 MG TAB PO SCH (08:36)
--- NOTE | 2020-07-01 22:22 | Hospitalist Progress Note ---
Date of Service July 01, 2020 Assessment & Plan (1) Colitis: continue Zosyn, IV fluid over the weekend no fever, vitals stable had a large BM 06/29 in evening will transition to home hospice Friday/Friday once set up palliative care following (2) Acute lower GI bleedin yo M PMHx CAD, Parkinson's disease with severe dementia admitted for acute LGIB. Hb stable at 12, no further bleeding, likely due to colitis continue fluids as he is not eating well plan for home hospice (3) Acute hypotension: sepsis, responded well to IV fluids, no PRBC needed BP stable (4) CAD (coronary artery disease): no signs of ACS (5) Fecal impaction: could not manually disimpact 06/27 on exam, stool too high in rectum/sigmoid large BM evening on 06/29 (6) BPH NOS w ur obs/LUTS: chu catheter in place will keep in place for home hospice (7) Dementia: has been at [facility] for 2 weeks, prior to that was living with his at baseline he is non-verbal was more ambulatory prior to going to [facility], has fallen a few times the past two weeks he is deteriorating, will not eat or drink, he is cachectic, bed bound cannot eat or drink enough to sustain himself agrees to home hospice after the weekend (8) Parkinson's disease: advanced with dementia, declining quality of life, cannot complete ADLs consult palliative care won't take Sinemet consistently Admission and Anticipated Discharge Date Admission Date: June 26, 2020 Subjective patient is alert, won't follow commands still not eating or drinking well abdomen is soft, chu in place plan to go home once hospice arranged Review of Systems Review of Systems: Unobtainable due to cognitive status Physical Exam Constitutional: well developed, + thin, + cachectic and + frail appearing; no acute distress Neck: trachea midline, no thyromegaly Respiratory: normal respiratory effort, lungs clear to auscultation Cardiovascular: RRR, no murmur, no edema Gastrointestinal (Abdomen): Inspection/Auscultation: abdomen normal to inspection and normal bowel sounds; abdomen not distended Percussion/Palpation: abdomen soft; abdomen nontender Musculoskeletal: Head/Neck/Chest: normocephalic, head atraumatic and neck supple Extremities: + abnormal strength (general weakness); no cyanosis, no clubbing and no petechiae Neurologic: CN's II-XI intact bilaterally, moves all extremities and awake; no focal motor deficits Motor/Sensory: + abnormal movement (rigidity) Psychiatric: Orientation: alert (eyes open, a little more responsive today); + not oriented x 3 Lymphatic: no cervical or axillary lymphadenopathy Results & Data Results & Data ([facility]) Vital Signs (Past 12 Hours) Vital Signs Temp Pulse Resp BP Pulse Ox 07/01/20 22:12 36.7 C 81 16 133/77 96 07/01/20 14:29 36.4 C L 67 18 134/79 98 Laboratory Results Laboratory Results - last 24 hr 07/01/20 05:20 Creatinine 0.54 L Est Cr Clr Drug Dosing 75.6 Est GFR ( Amer) 110.2 Est GFR (Non-Af Amer) 95.1 Medications Administered Current Inpatient Medications Carbidopa/Levodopa (Carbidopa/Levodopa 25/100mg Tab) 0.5 tab PO BID [facility] Stop: 07/29/20 20:59 Last Admin: 07/01/20 21:01 Dose: 0.5 tab Documented by: Piperacillin Sod/Tazobactam (Sod 3.375 gm/ Dextrose) 115 mls @ 28.75 mls/hr IV Q8H [facility]; Protocol Stop: 07/03/20 22:00 Last Admin: 07/01/20 21:01 Dose: 28.8 mls/hr Documented by: Potassium Chloride/Dextrose/Sod Cl (D5w And 1/4nss + 20meq Kcl) 20 meq in 1,000 mls @ 80 mls/hr IV .[id number] [facility] Stop: 07/29/20 11:29 Last Admin: 07/01/20 12:25 Dose: 80 mls/hr Documented by: Miscellaneous Information (Piperacill/Tazobac Consult Active) 1 ea N/A UD PRN PRN Reason: Consult Stop: 07/26/20 22:00 Ondansetron HCl (Ondansetron Inj 2 Mg/Ml 2 Ml Vial) 4 mg IV Q6H PRN PRN Reason: Nausea Stop: 07/26/20 22:00 Pantoprazole Sodium (Pantoprazole 40 Mg Tab) 40 mg PO QAM [facility] Stop: 07/30/20 08:59 Last Admin: 07/01/20 08:36 Dose: 40 mg Documented by: Polyethylene Glycol (Polyethylene (Miralax) 17 Gm Pack) 17 gm PO BID [facility] Stop: 07/29/20 20:59 Last Admin: 07/01/20 21:01 Dose: Not Given Documented by: PG Care Time/CCT Total # of Minutes Spent Total Time Spent with Patient: Total time spent is greater than 50% in coordination of care (as documented) at patient's floor/unit and/or counseling patient: Coding Level of Care Code 44770 Subseq Hosp Care Lvl 2 Diagnoses Colitis K52.9 Acute lower GI bleeding K92.2 Acute hypotension I95.9 CAD (coronary artery disease) I25.10 Associated angina: unspecified whether angina present Coronary Disease-Associated Artery/Lesion type: [place] artery [place] vs. transplanted heart: [place] heart Fecal impaction K56.41 BPH NOS w ur obs/LUTS N40.1 Dementia F03.90 Parkinson's disease G20 (1) CAD (coronary artery disease) Associated angina: unspecified whether angina present Coronary Disease- Associated Artery/Lesion type: [place] artery [place] vs. transplanted heart: [place] heart Qualified Code(s): I25.10 - Atherosclerotic heart disease of [place] coronary artery without angina pectoris
[2020-07-02] MEDS: D5W AND 1/4NSS + 20MEQ KCL 20 MEQ/1,000 ML BAG IV SCH ×2 (00:40→13:22)
[2020-07-02] MEDS: PIPERACILLIN/TAZOBACTAM 3.375 GM in DEXTROSE 5% 100 ML IV SCH ×3 (06:01→21:50)
[2020-07-02] MEDS: CARBIDOPA/LEVODOPA 25/100MG TAB PO SCH ×2 (08:27→21:49)
[2020-07-02] MEDS: PANTOprazole 40 MG TAB PO SCH (08:27)
[2020-07-02] MEDS: POLYETHYLENE (MIRALAX) 17 GM PACK PO SCH ×2 (08:28→21:58)
--- NOTE | 2020-07-02 14:20 | Hospitalist Progress Note ---
Date of Service July 02, 2020 Assessment & Plan (1) Colitis: Patient is stable. No significant improvement in overall status overnight. Continues to have poor PO intake, and is non-verbal. Continue Zosyn, IV fluid over the weekend No fever, vitals stable Had a large BM 06/29 in evening Will transition to home hospice Friday/Friday once set up Palliative care following (2) Acute lower GI bleedin yo M PMHx CAD, Parkinson's disease with severe dementia admitted for acute LGIB. Hb stable at 12, no further bleeding, likely due to colitis Continue IVF over the weekend as he is not eating well. (3) Acute hypotension: Secondary to sepsis. Responded well to IV fluids, no PRBC needed BP stable today at 141/79. (4) CAD (coronary artery disease): No signs of ACS (5) Fecal impaction: Could not manually disimpact 06/27 on exam, stool too high in rectum/sigmoid Large BM evening on 06/29 (6) BPH NOS w ur obs/LUTS: Continue chu catheter. Plan to d/c home on hospice with chu. (7) Dementia: Has been at [facility] for 2 weeks, prior to that was living with his --at baseline he is non-verbal --was more ambulatory prior to going to [facility], has fallen a few times the past two weeks He is deteriorating, will not eat or drink, he is cachectic, bed bound Cannot eat or drink enough to sustain himself. Continue IVF over the weekend, then home on hospice. (8) Parkinson's disease: Advanced with dementia, declining quality of life, cannot complete ADLs Won't take Sinemet consistently agrees to home hospice after the weekend. Disposition: Home on hospice Friday/Friday Admission and Anticipated Discharge Date Admission Date: June 26, 2020 Subjective Patient alert and opened eyes when spoke to, but unable to respond to questions d/t mental status. Awaiting d/c on hospice. Review of Systems Review of Systems: Unobtainable due to cognitive status Physical Exam Physical Exam: Temp Pulse Resp BP Pulse Ox 36.2 C L 76 20 141/79 H 93 07/02/20 07:06 07/02/20 07:06 07/02/20 07:06 07/02/20 07:06 07/02/20 07:06 Patient is afebrile. Vital signs stable. Constitutional: + cachectic and + frail appearing ENMT: Ears: no hearing impairment Neck: normal visual inspection Respiratory: normal respiratory effort, lungs clear to auscultation Cardiovascular: RRR, no murmur, no edema Gastrointestinal (Abdomen): Inspection/Auscultation: normal bowel sounds Percussion/Palpation: abdomen soft; abdomen nontender Psychiatric: Orientation: alert; + not oriented to person, + not oriented to place, + not oriented to time and + uncooperative Eye Contact: + fair eye contact Results & Data Results & Data ([facility]) Vital Signs (Past 12 Hours) Vital Signs Temp Pulse Resp BP Pulse Ox 07/02/20 07:06 36.2 C L 76 20 141/79 H 93 PG Care Time/CCT Total # of Minutes Spent Total Time Spent with Patient: Total time spent is greater than 50% in coordination of care (as documented) at patient's floor/unit and/or counseling patient: Coding Level of Care Code 07101 Subseq Hosp Care Lvl 2 Diagnoses Colitis K52.9 Acute lower GI bleeding K92.2 Acute hypotension I95.9 CAD (coronary artery disease) I25.10 Coronary Disease-Associated Artery/Lesion type: [place] artery [place] vs. transplanted heart: [place] heart Associated angina: unspecified whether angina present Fecal impaction K56.41 BPH NOS w ur obs/LUTS N40.1 Dementia F03.90 Parkinson's disease G20 (1) CAD (coronary artery disease) Coronary Disease-Associated Artery/Lesion type: [place] artery [place] vs. transplanted heart: [place] heart Associated angina: unspecified whether angina present Qualified Code(s): I25.10 - Atherosclerotic heart disease of [place] coronary artery without angina pectoris
[2020-07-03] MEDS: D5W AND 1/4NSS + 20MEQ KCL 20 MEQ/1,000 ML BAG IV SCH ×2 (01:47→14:11)
[2020-07-03] MEDS: PIPERACILLIN/TAZOBACTAM 3.375 GM in DEXTROSE 5% 100 ML IV SCH ×2 (06:16→15:14)
[2020-07-03] MEDS: CARBIDOPA/LEVODOPA 25/100MG TAB PO SCH ×2 (08:11→20:44)
[2020-07-03] MEDS: PANTOprazole 40 MG TAB PO SCH (08:11)
[2020-07-03] MEDS: POLYETHYLENE (MIRALAX) 17 GM PACK PO SCH ×2 (08:11→20:44)
--- NOTE | 2020-07-03 12:07 | Palliative Care Progress Note ---
Date of Service July 03, 2020 Assessment & Plan (1) Palliative care encounter: Appears comfortable. Denies pain. I spoke with his , Joie, on the phone. She had been planning on taking him home with hospice care but has changed her mind. She feels that since he is more awake, she would like him to return to [facility] to try therapy. We discussed his mental status waxing and waning and concern that he would not be able to participate in therapy. She understands this and knows that his prognosis is poor but feels strongly that he needs "another chance". If he does not do well with therapy at [facility], her goal would be to bring him home on hospice care. We did discuss goals of care and she would not want him to return to hospital. POLST form was completed. She will review at [facility] and sign there. Discussed with case management and Dr. Champagne. (2) Parkinson's disease: (3) Dementia: Admission and Anticipated Discharge Date Admission Date: June 26, 2020 Subjective Awake. Answers questions with yep or no. Denies pain. Taking small bites of applesauce. Review of Systems Review of Systems: [place] Symptom Assessment Scale Pain 0/3 Dyspnea 0/3 Anorexia 2/3 Fatigue 2/3 Anxiety 1/3 Palliative Performance Score 30% Physical Exam Constitutional: + cachectic ENMT: Mouth: oral mucous membranes not dry Respiratory: normal respiratory effort; no labored breathing Cardiovascular: Extremities: no edema Gastrointestinal (Abdomen): Percussion/Palpation: abdomen nontender Musculoskeletal: Extremities: + muscle atrophy Psychiatric: Affect: + flat affect Results & Data ([facility]) Vital Signs (Past 12 Hours) Vital Signs Temp Pulse Pulse Resp BP Pulse Ox 07/03/20 07:15 54 L 07/03/20 07:00 98.1 F 44 L 18 129/93 94 PG Care Time/CCT Total # of Minutes Spent Total Time Spent with Patient: Total time spent is greater than 50% in coordination of care (as documented) at patient's floor/unit and/or counseling patient: Total time spent 35 minutes with more than 50% of time spent on goals of care, POLST, and coordination of care. Coding Level of Care Code 14850 Subseq Hosp Care Lvl 3 Diagnoses Palliative care encounter Z51.5 Parkinson's disease G20 Dementia F03.90
--- NOTE | 2020-07-03 15:36 | Hospitalist Progress Note ---
Date of Service July 03, 2020 Assessment & Plan (1) Colitis: continue Zosyn, IV fluid over the weekend continue antibiotics stopping IV fluid no fever, vitals stable had a large BM 06/29 in evening Initial consideration to transition to home hospice however family is now considering [facility] to [facility] for [facility] at [facility]. Upon my evaluation of the patient today given his confusion and responsiveness I do not feel this is likely to succeed (2) Acute lower GI bleedin yo M PMHx CAD, Parkinson's disease with severe dementia admitted for acute LGIB. Hb stable at 12, no further bleeding, likely due to colitis recheck hemoglobin on 07/04/2020 (3) Acute hypotension: sepsis, responded well to IV fluids, no PRBC needed BP stable (4) CAD (coronary artery disease): no signs of ACS (5) Fecal impaction: could not manually disimpact 06/27 on exam, stool too high in rectum/sigmoid large BM evening on 06/29 (6) BPH NOS w ur obs/LUTS: chu catheter in place will keep in place for NOW (7) Dementia: has been at [facility] for 2 weeks, prior to that was living with his at baseline he is non-verbal was more ambulatory prior to going to [facility], has fallen a few times the past two weeks Family is now reversing her initial decision which is from the return to [place] care (8) Parkinson's disease: advanced with dementia, declining quality of life, cannot complete ADLs Appreciate advice of palliative care consult won't take Sinemet consistently Admission and Anticipated Discharge Date Admission Date: June 26, 2020 Subjective pt was sleeping and was not the easiest to arouse, was grabbing at my name badge, was able to show him my name, he seemed confused, was able to answer yes and no but not reliably denied pain for what its worth Review of Systems Review of Systems: Unobtainable due to cognitive status Mild distress and fatigue Given altered mental status difficult to have complete confidence in review of systems Physical Exam Physical Exam: The patient appeared chronically ill and moderately demented Vital signs as documented. Head exam is normocephalic atraumatic no scleral icterus Neck is without JVD, thyromegaly, or carotid bruits. Lungs are clear to auscultation, no focal loss of breath sounds Cardiac exam, Rhythm is regular.. No murmurs, rubs or gallops. Abdominal exam reveals normal bowel sounds, soft non tender, no masses Extremities are nonedematous and both pedal pulses are present Neurologic exam patient is awakens to stimulation spontaneously moves all extremities Results & Data Results & Data ([facility]) Vital Signs (Past 12 Hours) Vital Signs Temp Pulse Pulse Resp BP Pulse Ox 07/03/20 07:15 54 L 07/03/20 07:00 98.1 F 44 L 18 129/93 94 PG Care Time/CCT Total # of Minutes Spent Total Time Spent with Patient: Total time spent is greater than 50% in coordination of care (as documented) at patient's floor/unit and/or counseling patient: Coding Level of Care Code 57709 Subseq Hosp Care Lvl 2 Diagnoses Colitis K52.9 Acute lower GI bleeding K92.2 Acute hypotension I95.9 CAD (coronary artery disease) I25.10 Coronary Disease-Associated Artery/Lesion type: [place] artery [place] vs. transplanted heart: [place] heart Associated angina: unspecified whether angina present Fecal impaction K56.41 BPH NOS w ur obs/LUTS N40.1 Dementia F03.90 Parkinson's disease G20 (1) CAD (coronary artery disease) Coronary Disease-Associated Artery/Lesion type: [place] artery [place] vs. transplanted heart: [place] heart Associated angina: unspecified whether angina present Qualified Code(s): I25.10 - Atherosclerotic heart disease of [place] coronary artery without angina pectoris
[2020-07-04] MEDS: CARBIDOPA/LEVODOPA 25/100MG TAB PO SCH (07:43)
[2020-07-04] MEDS: PANTOprazole 40 MG TAB PO SCH (07:44)
[2020-07-04] MEDS: POLYETHYLENE (MIRALAX) 17 GM PACK PO SCH ×2 (07:44→07:46)
--- NOTE | 2020-07-04 15:44 | Discharge Summary ---
Date of Service July 04, 2020 Admission HPI Per Admitting Provider 84 yo M PMHx CAD, Parkinson's disease with severe dementia presents with from [facility] for AMS and lethargy. Patient is unable to give history due to lethargy/obtundation. Per , [facility] made her aware that he has had a few falls over the last few days but that he was alert following and was ambulatory. At his baseline, patient is alert but with severe dementia. He has been at [facility] for about 2 weeks. Today the was called and found out that he was not very responsive to [facility] staff, and so he was sent via ambulance to [facility]. In the ER patient was found to have Hgb 13.4, hypotension to systolic 80s, elevated BUN, brick red stool (hemoccult positive). CT Head showed no acute intracranial abnormality or calvarial fracture. CTAP showed moderate to extensive fecal retention of the rectum with associated rectal wall thickening and perirectal edema suggestive of stercoral proctitis. Hospitalist service consulted for admission for acute LGIB. reports that patient is DNR/DNI, and would not want any heroic measures, scopes, etc; though he would be amenable to a trial of blood products. She and her daughters have had many conversations about his age and illnesses, and are most concerned with his comfort above all else. Principal Diagnosis Lower GI bleed self-contained Functional decline Parkinsonism Discharge Exam The patient appeared chronically ill demented Vital signs as documented. Lungs are clear to auscultation decreased at the bases Cardiac exam, Rhythm is regular.. No murmurs, rubs or gallops. Abdominal exam reveals normal bowel sounds, soft non tender, no masses Extremities are nonedematous and both pedal pulses are normal. Neurologic exam is alert and oriented, he can answer some questions appropriately in yes no fashion he reaches out to grab my badge or stethoscope Psychologically is with concerns for dementia Discharge Data Allergies Allergy/AdvReac Type Severity Reaction Status Date / Time No Known Allergies Allergy Verified 06/26/20 18:46 Consultations 06/26/20 19:41 ED Decision to Admit Stat 06/27/20 11:54 Consult Palliative Care Routine Ordered Studies 06/26/20 18:16 CT abd pelvis wo con Stat CT cervical spine wo con Stat CT head/brain wo con Stat Hospital Course (1) Dementia: has been at [facility] for 2 weeks, prior to that was living with his at baseline he is non-verbal was more ambulatory prior to going to [facility], has fallen a few times the past two weeks Family is now reversing her initial decision which is from the return to [facility]. This pt has not participated in PT /OT and is a fall risk, he maybe limited by his parkinsons disease but without knowing his baseline it is difficult to tell if he is just progressing with dementia and functional decline. The family was considering hospice care and a polst is complete, however they want to try subacute rehab one more time I attempted to contact the patient's prior to discharge there was no answer to try to discuss with her her desire to have him discharged without him being ready with the physical occupational therapy standpoint. I saw the call to Dr. Jacky Lyman who is a medical administrator of [facility] to update him on the situation (2) Colitis: Completed course of Zosyn stable vital signs there is no significant drop in hemoglobin (3) Acute lower GI bleedin yo M PMHx CAD, Parkinson's disease with severe dementia admitted for acute LGIB. Hb stable at 12, no further bleeding, likely due to colitis (4) Acute hypotension: Secondary to sepsis secondary to GI source not blood loss and is been resolved (5) CAD (coronary artery disease): no signs of ACS (6) Fecal impaction: could not manually disimpact 06/27 on exam, stool too high in rectum/sigmoid large BM evening on 06/29 (7) BPH NOS w ur obs/LUTS: [place] DC'd at discharge continue Proscar (8) Parkinson's disease: advanced with dementia, declining quality of life, cannot complete ADLs Appreciate advice of palliative care consult Continue to offer but patient won't take Sinemet consistently Total Time Total Time Spent Total Time Spent (In Minutes): It required greater than 30 minutes to prepare this patient for discharge Discharge Plan Discharge Items Patient Disposition: Transfer [facility] Fac Reason For Visit: LGIB Discharge Diagnosis: lower gi bleed functional decline Condition on Discharge: Good Activity: Per Instructions section Activity Comment: per PT and OT evaluation Non-emergency contact: Primary Care Provider Call non-emergency contact if: you have any medication questions and your symptoms worsen Follow-up/Referrals: [facility] [Primary Care Provider] - Diet: Regular Diet Texture: Easy to Chew Addtl Attending Provider Instructions: this pt has not participated in PT /OT and is a fall risk, he maybe limited by his parkinsons disease but without knowing his baseline it is difficult to tell if he is just progressing with dementia and functional decline. The family was considering hospice care and a polst is complete, however they want to try subacute rehab one more time I attempted to contact the patient's prior to discharge there was no answer to try to discuss with her her desire to have him discharged without him being ready with the physical occupational therapy standpoint. I saw the call to Dr. Jacky Lyman who is a medical administrator of [facility] to update him on the situation Pending Studies at Discharge: No Stand-Alone Forms: My [facility] Skilled Items Patient informed of condition?: Yes DNR: Yes Discharge Level of Care: Skilled Communicable Disease: No Discharge Prognosis: Stable Lines: None Urinary Catheter: No Medications and DC Order Prescriptions: Continued carbidopa-levodopa 25-100 mg tablet 0.5 tab PO AMPM RF: 0 escitalopram oxalate [Lexapro] 5 mg Tablet 5 mg PO QAM RF: 0 donepezil [Aricept] 5 mg Tablet 5 mg PO QAM RF: 0 triamcinolone acetonide 0.1 % Cream 1 applic TOPICAL AMPM RF: 0 lorazepam 0.5 mg Tablet 0.5 mg PO .Q24HR PRN (Reason: Anxiety) RF: 0 aspirin 81 mg Tablet,Chewable 81 mg PO QAM RF: 0 Calmoseptine 0.44-20.6 % Ointment 1 applic TOPICAL TID RF: 0 Discontinued atorvastatin 40 mg tablet 40 mg PO HS RF: 0 acetaminophen [Tylenol] 325 mg Tablet 650 mg PO Q6H MDD 3 GRAMS/24 HOURS PRN (Reason: FEVER >100/PAIN) RF: 0 lorazepam 0.5 mg Tablet 0.5 mg PO HS RF: 0 lisinopril 2.5 mg Tablet 2.5 mg PO QAM RF: 0 Med Pass 60 ml PO QID RF: 0 Skin Prep Pads 1 applic topical HS RF: 0 finasteride 5 mg tablet 5 mg PO HS RF: 0 Discharge Orders: Discharge Order (Routine); Ordered 07/04/20 Ordered By: Moy Champagne Admission Data Admit Date/Time: 06/26/20 20:29 Attending Provider: Moy Champagne Admit Provider: Briseyda Cormier [facility]iders: [facility] ; Delta Galarza ; Kandis Bonds Coding Level of Care Code D/C Day Management >30 mins Diagnoses Dementia F03.90 Colitis K52.9 Acute lower GI bleeding K92.2 Acute hypotension I95.9 CAD (coronary artery disease) I25.10 Coronary Disease-Associated Artery/Lesion type: [place] artery [place] vs. transplanted heart: [place] heart Associated angina: unspecified whether angina present Fecal impaction K56.41 BPH NOS w ur obs/LUTS N40.1 Parkinson's disease G20
--- NOTE | 2020-07-04 16:13 | Palliative Care Progress Note ---
Date of Service July 04, 2020 Assessment & Plan (1) Palliative care encounter: Discussed with physical therapy. He is not able to participate in therapy and would not be able to have skilled rehab at [facility]. I called Joie and spoke with her about PT evaluation. She is frustrated with mixed messages and again says that she has to give him a chance. I asked her what giving him a chance meant to her. She feels that she needs to see him to make decision. I offered visit but she declined and would prefer to see him a [facility]. We discussed private pay for his care at [facility] if he is not able to participate in skilled rehab. She understands and is agreeable to this. Di scussed with case management and Dr. Champagne. Admission and Anticipated Discharge Date Admission Date: June 26, 2020 Subjective Awake. Eyes open. Tries to speak, but inaudible. Unable to follow commands with PT. Review of Systems Review of Systems: [place] Symptom Assessment Scale Pain 1/3 facial grimace with movement Dyspnea 0/3 Drowsiness 1/3 Palliative Performance Score 20% Physical Exam Constitutional: + cachectic Respiratory: normal respiratory effort; no labored breathing Musculoskeletal: Extremities: + muscle atrophy Neurologic: rigidity Results & Data ([facility]) Vital Signs (Past 12 Hours) Vital Signs Temp Pulse Resp BP Pulse Ox 07/04/20 15:02 97.3 F L 60 16 104/67 92 07/04/20 07:41 98.1 F 79 16 138/79 96 PG Care Time/CCT Total # of Minutes Spent Total Time Spent with Patient: Total time spent is greater than 50% in coordination of care (as documented) at patient's floor/unit and/or counseling patient: Coding Level of Care Code 38950 Subseq Hosp Care Lvl 2 Diagnoses Palliative care encounter Z51.5
--- NOTE | 2020-07-13 13:21 | Coding Query ---
SEPSIS To promote full compliance with coding requirements relating to patient care, physician participation is requested in all cases of waterproofing mixer uncertainty. Please assist us with the question(s) below: In responding to this query, please exercise your independent professional judgement. The fact that a question is asked does not imply that any particular answer is desired or expected. We appreciate your clarification on this issue. Throughout the medical record, the following has been documented Acute hypotension: Secondary to sepsis secondary to GI source not blood loss and is been resolved. If the patient has sepsis from an urinary source or some other source, please clarify in your response below. The medical record reflects the following clinical findings: Body temperature of >38.3 C(101 F) or <36 C(96.8F), pulse >90/minute, respirations >20/minute, WBC count was high, altered mental status, hypotension, blood culture done on 06/26/20 ____ ____Sepsis Specify Organism Specify Associated Condition/Diagnosis ___Present on Admission ___Not present on admission __xx_Unable to clinically determine ____Other, patient has: unable to determine Thank you [facility]
== END 2020-07-04 17:24 | DRG 392 ==
LOC: ED 18:04 → SUATTDRO 20:29 → 1E 20:29 → 2S 06-27 19:03 → 3N 06-28 22:31